=== PATIENT | male | born 1945 | race Caucasian/White ===

== ENCOUNTER 2020-11-28 03:24 | Inpatient (IN) | payer MEDICARE, SELFPAY ==
[2020-11-28] VITALS (12 sets, daily range): BP systolic 98–163; BP diastolic 53–107
[~2020-11-28] VITALS: Ht 170.2 cm; Wt 40.8 kg
[~2020-11-28 03:24] MED LIST: ACET-9536 PO; BACL10TA4 PO; BUPR100T3 PO; IBUP-2213 PO; LORA-476 PO; MELO7.5T11 PO; PAM25 PO; PAX20 PO; TRAM50TA3 PO; TRAZ-343 PO
--- NOTE | 2020-11-28 03:24 | NUR ---
PATIENT ARRIVED TO BED 2 VIA GURNEY.
[2020-11-28] MEDS ORDERED: MORPHINE SULFATE 4 MG/ML SYR IVP ONE ×3 (03:30→03:40)
[2020-11-28] MEDS ORDERED: ONDANSETRON 4 MG/2 ML VIAL IVP ONE (03:30)
--- NOTE | 2020-11-28 03:30 | NUR ---
75 YO/M BIBA W C/O CONSTANT GENERALIZED ABDOMNIAL PAIN 10/10 PRESSURE LIKE X3 HOURS THAT RADIATES TO BACK, SHOULDERS AND NECK. BOWEL SOUNDS PRESENT, ABDOMEN TENDER TO TOUCH, STOMACH RIGID AND FIRM. PATIENT DENIES ANY FEVER, N/V/D OR CONSTIPATION. PATIENT PRESENTS AOX4, GCS 15. ODIN AT 55HR, HYPOTENSIVE AT 90/48, 95% O2, 20RR. +2 PULSES, CAP REFILL <3SEC, +2PITTING EDEMA TO BILATERAL LOWER FEET. PATIENT LAYING IN BED W HOB ELEVATED, BED LOCKED IN LOWEST POSITION, CONNECTED TO MONITOR. ERMD AND CHARGE NURSE AT BEDSIDE FOR PATIENT ASSESSMENT AND CARE. WILL CONTINUE TO MONITOR. MEDHX: DIVERTICULITIS, HTN, HYPERLIPIDEMIA NKA
[2020-11-28] MEDS ORDERED: MORPHINE SULFATE 4 MG/ML SYR ONE ×2 (03:32→03:40)
[2020-11-28] MEDS ORDERED: ONDANSETRON 4 MG/2 ML VIAL ONE ×2 (03:32→12:19)
[2020-11-28] MEDS ORDERED: HYDROmorphone 1 MG/ML AMP ONE ×2 (03:54→12:19)
[2020-11-28] MEDS ORDERED: HYDROmorphone PFS 2 MG/ML SYR IVP ONE ×3 (03:55→04:55)
[2020-11-28] MEDS ORDERED: NACL 0.9% 1,000 ML IV ONE ×2 (03:55)
--- NOTE | 2020-11-28 03:56 | NUR ---
WASTED .5MG OF DILAUDID WITH ANJU SOSA. 1MG OF DILAUDID PULLED. .5MG DILAUDID ADMINISTERED.
--- NOTE | 2020-11-28 03:58 | NUR ---
PATIENT TAKEN TO CT VIA GURNEY.
[2020-11-28 04:20] LABS: BASOPHILS # (AUTO) 0.1 K/uL (0.00-0.22); BASOPHILS % (AUTO) 0.6 % (0.0-2.0); EOSINOPHILS # (AUTO) 0.1 K/uL (0-0.4); EOSINOPHILS % (AUTO) 0.7 % (0.0-4.0); HEMATOCRIT 40.4 % (36-52); HEMOGLOBIN 13.8 g/dL (12.0-18.0); LYMPHOCYTES # (AUTO) 1.2 K/uL (2.0-11.5); MEAN CORPUSCULAR HEMOGLOBIN 32 pg (27-31); MEAN CORPUSCULAR HGB CONC 34 g/dL (33-37); MEAN CORPUSCULAR VOLUME 94.9 fL (80-94); MONOCYTES # (AUTO) 0.7 K/uL (0.8-1.0); MONOCYTES % (AUTO) 6.7 % (1.7-9.3); NEUTROPHILS # (AUTO) 8.9 K/uL (1.8-7.7); PLATELET COUNT (AUTO) 288 K/uL (140-450); RED BLOOD CELL COUNT(AUTO) 4.26 MIL/uL (4.20-6.10); RED CELL DISTRIBUTION WIDTH 15.1 % (11.6-13.7)
--- NOTE | 2020-11-28 04:20 | NUR ---
PATIENT C/O OF ONGOING 10/10 ABDOMINAL PAIN. ERMD MADE AWARE, NEW PAIN MED ORDERS.
[2020-11-28 04:25] LABS: ALBUMIN 3.2 g/dL (3.4-5.0); ANION GAP 9.9 (8-16); ASPARTATE AMINOTRANSFERASE 23 U/L (15-37); CARBON DIOXIDE 29.6 mmol/L (21-32); CHLORIDE 105 mmol/L (98-107); CREATININE 1.1 mg/dL (0.6-1.3); GLUCOSE 171 mg/dL (74-106); LIPASE 298 U/L (73-393); POTASSIUM 4.5 mmol/L (3.5-5.1); SODIUM SERUM 140 mmol/L (136-145); TOTAL BILIRUBIN 0.2 mg/dL (0.0-1.0); UREA NITROGEN, BLOOD 32 mg/dL (7-18)
--- NOTE | 2020-11-28 04:25 | NUR ---
ADMINISTERED .5MG OF DILAUDID. 2MG OF DILAUDID PULLED. 1.5 MG DILAUDID WASTED W IAN RENE.
[2020-11-28 04:53] LABS: FREE T4 (FREE THYROXINE) 0.78 ng/dL (0.76-1.46); THYROID STIMULATING HORMONE 2.72 uIU/mL (0.34-3.74)
[2020-11-28 05:06] LABS: APPEARANCE,URINE HAZY (CLEAR); BILIRUBIN,URINE NEGATIVE (NEGATIVE); BLOOD, URINE TRACE-I (NEGATIVE); COLOR,URINE YELLOW (YELLOW); LEUKOCYTE ESTERASE ,URINE TRACE (NEGATIVE); NITRITE, URINE NEGATIVE (NEGATIVE); PH,URINE 8.5 (5.0-9.0); UGLUCOSE NEGATIVE (NEGATIVE)
[2020-11-28] MEDS ORDERED: PIPERACILLIN/TAZOBACTAM 4.5 GM VIAL IV ONE (05:08)
[2020-11-28] MEDS ORDERED: PIPERACILLIN/TAZOBACTAM 4.5 GM in DEXTROSE 5% 100 ML IV ONE (05:10)
--- NOTE | 2020-11-28 05:11 | NUR ---
WASTED 1MG OF DILAUDID WITH FLORENTIN RN. 2MG OF DILAUDID PULLED. 1MG DILAUDID ADMINISTERED.
[2020-11-28 05:18] LABS: WBC,URINE 0-5 /HPF (0-5)
[2020-11-28] MEDS ORDERED: HYDROmorphone PFS 2 MG/ML SYR IVP PRN (05:20)
[2020-11-28] MEDS ORDERED: MORPHINE SULFATE 4 MG/ML SYR IV PRN (05:20)
--- NOTE | 2020-11-28 05:20 | NUR ---
PATIENT DESATING TO 78% O2, PLACED ON 2L NC. PATIENT O2 SAT AT 88%, PLACED ON 3L NC AND PATIENT O2 SATURATION AT 97%. ERMD MADE AWARE, PER ERMD OK TO BE ON 3L NC.
[2020-11-28] MEDS ORDERED: QUET25TA PO (05:52)
[2020-11-28] MEDS ORDERED: GABA300C PO (05:52)
[2020-11-28] MEDS ORDERED: AMLO2.5T PO (05:52)
[2020-11-28] MEDS ORDERED: FAMO-90 PO (05:52)
[2020-11-28] MEDS ORDERED: ACET-2214 PO (05:52)
[2020-11-28] MEDS ORDERED: SERT100T PO (05:52)
[2020-11-28] MEDS ORDERED: ATOR20TA PO (05:52)
[2020-11-28] MEDS ORDERED: BACL10TA4 PO (05:52)
[2020-11-28] MEDS ORDERED: BUPR-51 PO (05:52)
--- NOTE | 2020-11-28 06:20 | NUR ---
PT POINT OF CONTACT: CHELY (SON) #[phone]
--- NOTE | 2020-11-28 06:26 | NUR ---
PATIENT LAYING IN BED IN R LATERAL POSITION W EYES CLOSED. HOB SLIGHTLY ELEVATED, X2 SIDERAILS UP FOR PATIENT SAFETY. PATIENT CONNECTED TO MONITOR W VSS. BREATHING EVEN AND UNLABORED, NAD NOTED. WILL CONTINUE TO MONITOR.
--- NOTE | 2020-11-28 07:03 | NUR ---
PATIENT HAS BEEN SCREENED AND CATEGORIZED HIGH NUTRITION RISK. PATIENT WILL BE SEEN WITHIN 1-2 DAYS OF ADMISSION. 11/29/20-11/30/20 MANNIE SMITH MS, RDN
--- NOTE | 2020-11-28 07:15 | NUR ---
REPORT RECEIVED FROM ANJU TURPIN. ALL CARES TRANSFERRED AT THIS TIME.
--- NOTE | 2020-11-28 07:25 | NUR ---
REPORT GIVEN TO SANDRA RENE FOR TRANSFER OF PATIENT CARE AT THIS TIME.
[2020-11-28] MEDS: NACL 0.9% 1,000 ML IV SCH ×3 (07:26→21:38)
--- NOTE | 2020-11-28 07:43 | NUR ---
PATIENT BROUGHT IN TO ICU VIA GURNEY BY ED NURSE. PATIENT AWAKE, ALERT, ABLE TO MAKE NEEDS KNOWN. BREATHING EVEN AND UNLABORED, NO SIGNS OF ACUTE DISTRESS NOTED ON 3L NC, SPO2 91%. L AC 20G INFUSING NS @ 120 ML/HR. PATIENT COMPLAINS OF ABD PAIN 09/24, MEDICATED AT THE ED, WILL MONITOR CLOSELY. PATIENT ORIENTED TO ROOM AND UNIT, CALL LIGHT WITHIN REACH. LIVESTOCK HAULIER IN PLACE. SAFETY MEASURES IN PLACE.
--- NOTE | 2020-11-28 07:53 | NUR ---
Patient will be admitted to care of DR MILLS. Admited to ICU. Will go to BED 4. Belongings list completed. Report to ANJU COPELAND.
--- NOTE | 2020-11-28 08:36 | NUR ---
PER DR TENORIO, PATIENT WILL BE UNDERGOING EMERGENCY SURGERY SOON THIS AM, RAPID COVID-19 TEST NOT A PRIORITY AT THIS TIME.
--- NOTE | 2020-11-28 09:15 | NUR ---
SAMPLE FOR RAPID COVID TEST OBTAINED AND WALKED TO LABORATORY AT THIS TIME. ECG TECHNICIAN PERFORMING TEST STAT.
[2020-11-28] MEDS ORDERED: POTASSIUM CHLORIDE 10 MEQ TABER PO PRN (10:30)
[2020-11-28] MEDS ORDERED: ZOLPIDEM 5 MG TAB PO PRN (10:30)
[2020-11-28] MEDS ORDERED: MAG SULF 2000 MG/WATER PREMIX 50 ML IV PRN (10:30)
[2020-11-28] MEDS ORDERED: ONDANSETRON 4 MG/2 ML VIAL IM/IVP PRN (10:30)
[2020-11-28] MEDS ORDERED: DOCUSATE SODIUM 100 MG GELCAP PO PRN (10:30)
--- NOTE | 2020-11-28 10:49 | NUR ---
PRN DILAUDID ADMINISTERED FOR ABD PAIN 12/25. MED EDUCATION PROVIDED, PATIENT VERBALIZES UNDERSTANDING.
[2020-11-28 11:17] LABS: BARBITURATE, URINE NEGATIVE ng/ml (NEG <=200); BENZODIAZEPINE, URINE NEGATIVE ng/mL (NEG <=200); CANNABINOID, URINE NEGATIVE ng/mL (NEG <=50); COCAINE, URINE NEGATIVE ng/mL (NEG <=300); OPIATE, URINE POSITIVE ng/mL (NEG <=2000); PHENCYCLIDINE SCREEN,URINE NEGATIVE ng/mL (NEG <=25)
--- NOTE | 2020-11-28 11:53 | NUR ---
PATIENT COMPLAINS OF NAUSEA, PRN ZOFRAN ADMINISTERED PER MD ORDER. MED EDUCATION PROVIDED, PATIENT VERBALIZES UNDERSTANDING. WILL MONITOR CLOSELY.
[2020-11-28] MEDS: PIPERACILLIN/TAZOBACTAM 4.5 GM in DEXTROSE 5% 100 ML IV SCH ×4 (12:01→23:36)
[2020-11-28] MEDS ORDERED: BUPIVACAINE-MPF/EPI 0.25% 30 ML VIAL INJ ONE (12:04)
[2020-11-28] MEDS ORDERED: PROPOFOL 200 MG/20 ML VIAL IV ONE ×2 (12:06→12:19)
[2020-11-28] MEDS ORDERED: SUCCINYLCHOLINE CHLORIDE 200 MG/10 ML VIAL IVP ONE ×2 (12:07→12:19)
[2020-11-28] MEDS ORDERED: fentaNYL citrate 0.05 MG/ML VIAL ONE ×2 (12:19→12:21)
[2020-11-28] MEDS ORDERED: DEXAMETHASONE 4 MG/ML VIAL ONE ×2 (12:19→12:44)
[2020-11-28] MEDS ORDERED: ROCURONIUM 50 MG/5 ML VIAL IV ONE ×2 (12:19→12:36)
[2020-11-28] MEDS ORDERED: SEVOFLURANE 250 ML BTL INH ONE (12:19)
[2020-11-28] MEDS ORDERED: SUGAMMADEX SODIUM 200 MG/2 ML VIAL IV ONE ×2 (12:19→13:16)
--- NOTE | 2020-11-28 12:21 | NUR ---
PATIENT PICKED UP BY OR TEAM AT THIS TIME FOR SURGERY. ALL VITALS STABLE AT THIS TIME.
[2020-11-28] MEDS ORDERED: HYDROmorphone PFS 2 MG/ML SYR ONE (13:16)
--- NOTE | 2020-11-28 14:35 | NUR ---
PATIENT RECEIVED FROM OR TEAM VIA [facility]. BREATHING LABORED 35RR, ON 10L SIMPLE MASK SPO2 93%. PATIENT AWAKE AND ALERT, WITH ABD DISCOMFORT, RECEIVED DILAUDID IN OR 1HR AGO PER OR TEAM. 1L LR BOLUS INFUSING AT THIS TIME, WIDE OPEN. PATIENT PLACED ON LOLLYPOP MACHINE OPERATOR, REORIENTED TO ROOM AND MADE AWARE OF FAMILY BEING UP TO DATE ON HIS CONDITION AND WILL BE COMING TO VISIT HIM SOON. PATIENT VERBALIZES UNDERSTANDING. SAFETY MEASURES IN PLACE, WILL MONITOR CLOSELY.
--- NOTE | 2020-11-28 14:47 | NUR ---
PATIENT FAMILY CALLED WITH UPDATES ON PATIENT CONDITION SP OR PROCEDURE. ALL QUESTIONS ANSWERED AT THIS TIME. PATIENT FAMILY ADVICED TO ALLOW PATIENT SOME REST BEFORE DRIVING IN TO SEE HIM, THEY AGREED AND WILL BE ON THEIR WAY SHORTLY. WILL CLOSELY MONITOR PATIENT CONDITION.
--- NOTE | 2020-11-28 14:52 | NUR ---
PATIENT RELAXED, SLEEPING, NO SIGNS OF ACUTE DISTRESS NOTED AT THIS TIME. WILL CONTINUE TO MONITOR.
--- NOTE | 2020-11-28 16:34 | NUR ---
PATIENT CONTINUES ON 10L SIMPLE MASK, SPO2 93%. PATIENT STATES FEELING MUCH BETTER, PAIN 0/10 AT THIS TIME. BREATHING EVEN BILATERALLY, NO SIGNS OF ACUTE DISTRESS NOTED. WILL CONTINUE TO MONITOR CLOSELY.
--- NOTE | 2020-11-28 16:51 | NUR ---
DR TENORIO AT BEDSIDE, FOLLOWING UP WITH PATIENT. 30 ML SEROSANGUINOUS FLUID REMOVED FROM DALE DRAIN. PATIENT ARRIVES AT BEDSIDE, UPDATED ON PATIENT CONDITION AND ALL QUESTIONS ANSWERED AT THIS TIME.
[2020-11-28] MEDS: QUEtiapine FUMARATE 25 MG TAB PO SCH (17:53)
[2020-11-28] MEDS: GABAPENTIN 300 MG CAP PO SCH (17:53)
[2020-11-28 17:58] LABS: PROTHROMBIN TIME 9.1 secs (10.8-13.4)
[2020-11-28 18:01] LABS: MAGNESIUM 2.4 mg/dL (1.8-2.4); PHOSPHORUS 3.9 mg/dL (2.5-4.9)
--- NOTE | 2020-11-28 19:27 | NUR ---
50 ML SEROSANGUINOUS FLUID REMOVED FROM DALE DRAIN.
--- NOTE | 2020-11-28 19:28 | NUR ---
ENDORSED TO QUALITY AUDIT REPRESENTATIVE NURSE FOR CONTINUITY OF CARE. PATIENT STABLE AT THIS TIME.
--- NOTE | 2020-11-28 19:30 | NUR ---
RECEIVED CARE AND REPORT FROM KURTISFT RN. PATIENT ALERT AND ORIENTED X 4 TO PERSON, PLACE, TIME AND EVENT. PATIENT TRACKING WITH EYES WHEN AT THE BEDSIDE, ABLE TO MAKE NEEDS KNOWN. PATIENT FOUND HOB 30 DEGREES, IN A POSITION OF COMFORT, WEARING A SIMPLE MASK O2 10 LPM, OXYGEN SATURATION 98%, RR 22, DENIES SOB AND DIFFICULTY BREATHING WHEN ASKED. PATIENT DENIES PAIN WHEN ASKED, RESTING COMFORTABLY, NO OBVIOUS SIGNS OF DISTRESS OBSERVED WHILE AT THE BEDSIDE. PATIENT CONNECTED TO CONTINUOUS MAINTENANCE SUPERVISOR 2ND SHIFT, NSR 91 HR. PATIENT HAS IV SITES OF LEFT AC 20G AND RIGHT AC 20G. IVF RUNNING INCLUDE NS 0.9% AT 120 ML/HR. IV SITE DRESSINGS DRY, INTACT AND FLUSHING WELL. PATIENT APPROXIMATE DRY WEIGHT IS 88 KG. PATIENT HAS ERAZO CATHETER IN PLACE, INTACT AND SECURED, DRAINING WELL. PATIENT HAS A RIGHT DALE DRAIN SECURED TO THE ABDOMEN, DRAINING WELL, WITH ABDOMINAL DRESSING, DRY, INTACT AND SECURED. PATIENT RESTING IN A POSITION OF COMFORT, OFFLOADED FROM PRESSURE POINTS WITH USE OF PILLOWS AND REPOSITIONING Q2. BED LOCKED AND LOWERED INTO A POSITION OF SAFETY, CALL LIGHT WITHIN REACH OF PATIENT, EDUCATED/ORIENTED ON ROOM, CREATING ENVIRONMENT WITH DECREASED STIMULI TO PROMOTE HEALING. WILL CONTINUE TO REASSESS OFTEN, CLOSELY MONITOR AND FREQUENTLY ROUND.
--- NOTE | 2020-11-28 20:25 | NUR ---
ORAL CARE, HYGIENE, SAFETY CHECKS PROVIDED, PATIENT RESTING IN A POSITION OF COMFORT, DENIES PAIN WHEN ASKED, NO OBVIOUS SIGNS OF DISTRESS OBSERVED WHILE AT THE BEDSIDE. WILL CONTINUE TO CLOSELY MONITOR AND FREQUENTLY ROUND.
--- NOTE | 2020-11-28 20:44 | NUR ---
FIO2 TITRATED - PT SLEEPING COMFORTABLY ON 10L SIMPLE MASK AND WAS TITRATED TO 8L PT TOLERATING WELL AT THIS TIME WILL CONTINUE TO TITRATE/MONITOR
--- NOTE | 2020-11-28 20:55 | NUR ---
FAMILY CALLED THE UNIT, ALL QUESTIONS ANSWERED.
[2020-11-28] MEDS: FAMOTIDINE 20 MG TAB PO SCH (21:23)
[2020-11-28] MEDS: SERTRALINE 50 MG TAB PO SCH (21:23)
[2020-11-28] MEDS: ATORVASTATIN 20 MG TAB PO SCH (21:23)
--- NOTE | 2020-11-28 21:35 | NUR ---
FIO2 TITRATION - SIMPLE MASK TITRATED TO 5L PT TOLERATING WELL f20 SPO2 98% HR 89 WILL CONTINUE TO TITRATE TOLERATED AND MONITOR
--- NOTE | 2020-11-28 21:37 | NUR ---
SCHEDULED MEDICATIONS GIVEN ORDERED BY THE MD, NO OBVIOUS SIGNS OF DISTRESS OBSERVED WHILE AT THE BEDSIDE. PATIENT DENIES PAIN WHEN ASKED, DENIES SOB AND DENIES ANY DIFFICULTY BREATHING, RESTING IN A POSITION OF COMFORT, WILL CONTINUE TO CLOSELY MONITOR AND FREQUENTLY ROUND.
--- NOTE | 2020-11-28 22:02 | NUR ---
ORAL CARE, HYGIENE, REPOSITIONING AND SAFETY CHECKS PROVIDED. PATIENT STATES FEELING GOOD WHEN ASKED, NO OBVIOUS SIGNS OF DISTRESS OBSERVED WHILE AT THE BEDSIDE. WILL CONTINUE TO CLOSELY MONITOR AND FREQUENTLY ROUND.
[2020-11-29] VITALS (22 sets, daily range): BP systolic 102–144; BP diastolic 50–93
--- NOTE | 2020-11-29 00:07 | NUR ---
RIGHT DALE DRAIN EMPTIED, 20 ML OUT.
[2020-11-29] MEDS: HYDROcodone/APAP 5/325 MG 1 TAB TAB PO PRN ×3 (00:23→19:48)
--- NOTE | 2020-11-29 00:23 | NUR ---
PRN PAIN MEDICATION GIVEN ORDERED BY MD, WILL CONTINUE TO CLOSELY MONITOR AND FREQUENTLY ROUND.
--- NOTE | 2020-11-29 01:22 | NUR ---
PATIENT SLEEPING IN A POSITION OF COMFORT, HOB 30 DEGREES TOLERATING THERAPIES WELL, AIRWAY OPEN CLEAR AND MAINTAINABLE. NO OBVIOUS SIGNS OF DISTRESS OBSERVED WHILE AT THE BEDSIDE. WILL CONTINUE TO CLOSELY MONITOR AND FREQUENTLY ROUND.
[2020-11-29] MEDS: MORPHINE SULFATE 2 MG/ML SYR IVP PRN (02:17)
--- NOTE | 2020-11-29 02:17 | NUR ---
PRN PAIN MEDICATION GIVEN ORDERED BY MD, NO OBVIOUS SIGNS OF DISTRESS OBSERVED WHILE AT THE BEDSIDE. WILL CONTINUE TO CLOSELY MONITOR AND FREQUENTLY ROUND.
--- NOTE | 2020-11-29 04:01 | NUR ---
DALE DRAIN EMPTIED, 25 ML OUT.
--- NOTE | 2020-11-29 04:21 | NUR ---
MORNING CARE, ORAL CARE, HYGIENE, SAFETY CHECKS AND ADL ASSISTANCE PROVIDED. NO OBVIOUS SIGNS OF DISTRESS OBSERVED WHILE AT THE BEDSIDE. WILL CONTINUE TO CLOSELY MONITOR AND FREQUENTLY ROUND.
[2020-11-29 05:14] LABS: BASOPHILS % (AUTO) 0.2 % (0.0-2.0); EOSINOPHILS % (AUTO) 0.1 % (0.0-4.0); HEMATOCRIT 41.4 % (36-52); HEMOGLOBIN 13.7 g/dL (12.0-18.0); LYMPHOCYTES # (AUTO) 0.4 K/uL (2.0-11.5); MEAN CORPUSCULAR HEMOGLOBIN 32 pg (27-31); MEAN CORPUSCULAR HGB CONC 33 g/dL (33-37); MEAN CORPUSCULAR VOLUME 97.5 fL (80-94); MONOCYTES # (AUTO) 0.5 K/uL (0.8-1.0); MONOCYTES % (AUTO) 4.4 % (1.7-9.3); NEUTROPHILS # (AUTO) 10.7 K/uL (1.8-7.7); PLATELET COUNT (AUTO) 219 K/uL (140-450); RED BLOOD CELL COUNT(AUTO) 4.25 MIL/uL (4.20-6.10); RED CELL DISTRIBUTION WIDTH 15.9 % (11.6-13.7); WHITE BLOOD COUNT (AUTO) 11.6 K/uL (4.8-10.8)
[2020-11-29] MEDS: HYDROmorphone 1 MG/ML AMP IVP PRN ×3 (05:48→17:45)
--- NOTE | 2020-11-29 05:48 | NUR ---
PRN PAIN MEDICATION GIVEN ORDERED BY MD, NO OBVIOUS SIGNS OF DISTRESS OBSERVED WHILE AT THE BEDSIDE. WILL CONTINUE TO CLOSELY MONITOR AND FREQUENTLY ROUND.
[2020-11-29 05:55] LABS: ANION GAP 10.4 (8-16); CARBON DIOXIDE 26.5 mmol/L (21-32); CHLORIDE 109 mmol/L (98-107); CREATININE 0.8 mg/dL (0.6-1.3); GLUCOSE 112 mg/dL (74-106); POTASSIUM 4.9 mmol/L (3.5-5.1); SODIUM SERUM 141 mmol/L (136-145); UREA NITROGEN, BLOOD 34 mg/dL (7-18)
[2020-11-29] MEDS: PIPERACILLIN/TAZOBACTAM 4.5 GM in DEXTROSE 5% 100 ML IV SCH ×4 (05:56→23:00)
[2020-11-29] MEDS: NACL 0.9% 1,000 ML IV SCH ×3 (05:58→22:31)
[2020-11-29 06:03] LABS: CHOL/HDL RATIO 1.8 (1-4.5); MAGNESIUM 2.5 mg/dL (1.8-2.4); PHOSPHORUS 4.3 mg/dL (2.5-4.9)
--- NOTE | 2020-11-29 06:18 | NUR ---
PATIENT ASLEEP, RESTING IN A POSITION OF COMFORT, TOLERATING THERAPIES WELL, NO OBVIOUS SIGNS OF DISTRESS OBSERVED WHILE AT THE BEDSIDE. SYMMETRICAL CHEST RISE AND FALL OBSERVED, HOB 30 DEGREES, AIRWAY PATENT, RR 20, OXYGEN SATURATION 97%, SIMPLE MASK 5 LPM. VS STABLE. WILL CONTINUE TO CLOSELY MONITOR AND FREQUENTLY ROUND.
[2020-11-29 06:28] LABS: LYMPHOCYTES % (AUTO) 3.2 % (20.5-51.1); NEUTROPHILS % (AUTO) 92.1 % (42.2-75.2)
--- NOTE | 2020-11-29 07:17 | NUR ---
REPORT AND CARE ENDORSED TO DAYSHIFT RN, VS STABLE.
--- NOTE | 2020-11-29 07:22 | NUR ---
RECIEVED REPORT FROM NIGHTSHIFT NURSE. PT RESTING IN BED. ABLE TO MAKE NEEDS KNOWN. RESPIRATIONS EVEN AND UNLABORED WITH NO SOB OR RESPIRATORY DISTRESS.SKIN WARM AND DRY TO TOUCH. PT HAS NGTUBE IN R NARE. PT HAS ERAZO DRAINING VIA GRAVITY. PT HAS DALE DRAIN CLEAN,DRY, AND INTACT. SAFETY MEASURES IN PLACE. WILL CONTINUE TO MONITOR
[2020-11-29] MEDS: PANTOPRAZOLE 40 MG INJ VIAL IVP SCH (08:32)
[2020-11-29] MEDS: GABAPENTIN 300 MG CAP PO SCH ×3 (08:35→17:06)
[2020-11-29] MEDS: amLODIPine 5 MG TAB PO SCH (08:36)
[2020-11-29] MEDS: QUEtiapine FUMARATE 25 MG TAB PO SCH ×3 (08:36→17:06)
[2020-11-29] MEDS: SERTRALINE 50 MG TAB PO SCH ×2 (08:37→20:48)
[2020-11-29] MEDS: FAMOTIDINE 20 MG TAB PO SCH ×2 (08:38→20:46)
[2020-11-29] MEDS: buPROPion 100 MG TAB PO SCH (08:38)
--- NOTE | 2020-11-29 08:52 | NUR ---
ADMINISTERED SCHED MED PRESCRIBED PER MD ORDER. PT TOLERATED WELL. MEDICATION EDUCATION PERFORMED. PT VERBALIZED UNDERSTANDING. SAFETY MEASURES IN PLACE. WILL CONTINUE TO MONITOR
--- NOTE | 2020-11-29 09:30 | NUR ---
PT RESTING IN BED. ABLE TO MAKE NEEDS KNOWN. RESPIRATIONS EVEN AND UNLABORED WITH NO SOB OR RESPIRATORY DISTRESS. SAFETY MEASURES IN PLACE. WILL CONTINUE TO MONITOR
--- NOTE | 2020-11-29 11:58 | NUR ---
ADMINISTERED SCHED MED PRESCRIBED PER MD ORDER. PT TOLERATED WELL. MEDICATION EDUCATION PERFORMED. PT VERBALIZED UNDERSTANDING. SAFETY MEASURES IN PLACE. WILL CONTINUE TO MONITOR
--- NOTE | 2020-11-29 12:20 | NUR ---
PT HAVING EPISODE OF EMESIS INTO EMESIS BAG. PT STATES HE FEELS NAUSEAS. PRN ZOFRAN ADMINISTERED PRESCRIBED PER MD ORDER. PT ALSO COMPLAINED OF SEVERE STOMACH PAIN. PRN DILAUDID ADMINISTERED PRESCRIBED PER MD ORDER. PT TOLERATED WELL. MEDICATION EDUCATION PERFORMED. PT TOLERATED WELL. SAFETY MEASURES IN PLACE. WILL CONTINUE TO MONITOR
[2020-11-29] MEDS: ONDANSETRON 4 MG/2 ML VIAL IV PRN (12:21)
--- NOTE | 2020-11-29 13:12 | NUR ---
DR. TENORIO AT BEDSIDE ASSESSING PATIENT
--- NOTE | 2020-11-29 13:27 | NUR ---
GRANDDAUGHTER MARY CALLED AND WANTED AN UPDATE. UPDATE GIVEN. SAFETY MEASURES IN PLACE. WILL CONTINUE TO MONITOR
--- NOTE | 2020-11-29 14:15 | NUR ---
VISITOR AT BEDSIDE VISITING PATIENT.SAFETY MEASURES IN PLACE. WILL CONTINUE TO MONITOR
--- NOTE | 2020-11-29 15:43 | NUR ---
DR. SWARTZ ASSESSING PATIENT
--- NOTE | 2020-11-29 17:11 | NUR ---
ADMINISTERED SCHED MED PRESCRIBED PER MD ORDER. MEDICATION EDUCATION PERFORMED. PT VERBALIZED UNDERSTANDING. SAFETY MEASURES IN PLACE. WILL CONTINUE TO MONITOR
--- NOTE | 2020-11-29 17:45 | NUR ---
PT COMPLAINED OF SEVERE PAIN. PRN DILAUDID ADMINISTERED PRESCRIBED PER MD ORDER. PT TOLERATED WELL. MEDICATION EDUCATION PERFORMED. PT VERBALIZED UNDERSTANDING. SAFETY MEASURES IN PLACE. WILL CONTINUE TO MONITOR
--- NOTE | 2020-11-29 18:30 | NUR ---
REMOVED ERAZO PER MD ORDER. PT TOLERATED WELL. PT EDUCATED ON URINAL USE. PT VERBALIZED UNDERSTANDING. SAFETY MEASURES IN PLACE. WILL CONTINUE TO MONITOR
--- NOTE | 2020-11-29 19:10 | NUR ---
ENDORSED TO NIGHTSHIFT NURSE FOR CONTINUITY OF CARE
--- NOTE | 2020-11-29 19:30 | NUR ---
RECEIVED CARE AND REPORT FROM DAYSHIFT RN. PATIENT ALERT AND ORIENTED X 4 TO PERSON, PLACE, TIME AND EVENT. PATIENT TRACKING WITH EYES WHEN AT THE BEDSIDE, ABLE TO MAKE NEEDS KNOWN. PATIENT FOUND HOB 30 DEGREES, IN A POSITION OF COMFORT, HAS HUMIDIFIED NC 4 LPM, OXYGEN SATURATION 96%, RR 18, DENIES SOB AND DIFFICULTY BREATHING WHEN ASKED. PATIENT DENIES PAIN WHEN ASKED, RESTING COMFORTABLY, NO OBVIOUS SIGNS OF DISTRESS OBSERVED WHILE AT THE BEDSIDE. PATIENT CONNECTED TO CONTINUOUS RIDING TEACHER. PATIENT HAS IV SITES OF LEFT AC 20G AND RIGHT AC 20G. IVF RUNNING INCLUDE NS 0.9% AT 120 ML/HR. IV SITE DRESSINGS DRY, INTACT AND FLUSHING WELL. PATIENT APPROXIMATE DRY WEIGHT IS 88 KG. PATIENT HAS ERAZO CATHETER IN PLACE, INTACT AND SECURED, DRAINING WELL. PATIENT HAS A RIGHT DALE DRAIN SECURED TO THE ABDOMEN, DRAINING WELL, WITH ABDOMINAL DRESSING, DRY, INTACT AND SECURED. PATIENT RESTING IN A POSITION OF COMFORT, OFFLOADED FROM PRESSURE POINTS WITH USE OF PILLOWS AND REPOSITIONING Q2. BED LOCKED AND LOWERED INTO A POSITION OF SAFETY, CALL LIGHT WITHIN REACH OF PATIENT, EDUCATED/ORIENTED ON ROOM, CREATING ENVIRONMENT WITH DECREASED STIMULI TO PROMOTE HEALING. WILL CONTINUE TO REASSESS OFTEN, CLOSELY MONITOR AND FREQUENTLY ROUND.
--- NOTE | 2020-11-29 19:48 | NUR ---
PRN PAIN MEDICATION GIVEN ORDERED, WILL CONTINUE TO CLOSELY MONITOR AND FREQUENTLY ROUND.
--- NOTE | 2020-11-29 19:55 | NUR ---
RT CALLED TO BEDSIDE FOR DESATURATION TO 88%, RT AND RN AT BEDSIDE.
--- NOTE | 2020-11-29 20:01 | NUR ---
RT PLACED PATIENT ON HIGH FLOW NON REBREATHER MASK 15 LPM, RR 18, OXYGEN SATURATION 96%, TOLERATING THERAPY WELL. NO OBVIOUS SIGNS OF DISTRESS OBSERVED. WILL CONTINUE TO CLOSELY MONITOR AND FREQUENTLY ROUND.
--- NOTE | 2020-11-29 20:02 | NUR ---
DR. MCMULLEN PAGED/CALLED REGARDING INCREASED HR, AWAITING CALLBACK.
--- NOTE | 2020-11-29 20:25 | NUR ---
DR. MCMULLEN CALLED UNIT BACK, [id number] AND STATUS REPORT GIVEN TO MD, RECEIVED VERBAL TELEPHONE ORDER OF GIVE ONE TIME DIGOXIN 0.250 MG IVP NOW AND THEN GIVE ANOTHER ONE TIME DIGOXIN 0.125 MG IVP IN Q6 HOURS. WILL CARRY OUT ORDERS.
[2020-11-29] MEDS ORDERED: DIGOXIN 0.25 MG/ML AMP IV ONE (20:30)
[2020-11-29] MEDS: ATORVASTATIN 20 MG TAB PO SCH (20:45)
[2020-11-29] MEDS ORDERED: LEVALBUTEROL 0.63 MG/3 ML NEBU INH PRN (21:40)
--- NOTE | 2020-11-29 21:50 | NUR ---
DR. MILLS CALLED/PAGED REGARDING UPDATE IN PATIENT STATUS AND FOR FURTHER ORDERS, AWAITING CALLBACK.
--- NOTE | 2020-11-29 21:51 | NUR ---
DR. MILLS RECONTACTED UNIT, UPDATE ON PATIENT CONDITION, STATUS UPDATE GIVEN TO MD, UPDATED ON OTHER MD PHONE CONSULTS/ORDERS GIVEN THUS FAR, DR. MILLS ACKNOWLEDGED AND GAVE VERBAL TELEPHONE ORDER TO BOLUS 1L NS 0.9% WIDE OPEN AND TO FOLLOW UP WITH CARDIO DR. TEN WARREN MD STATED WILL ALSO CONTACT CARDIO. WILL CARRY OUT ORDERS.
[2020-11-29] MEDS ORDERED: NACL 0.9% 1,000 ML IV ONE (21:55)
--- NOTE | 2020-11-29 22:10 | NUR ---
CARDIO DR. TEN WARREN CONTACTED ORDERED BY DR. GENE MD GIVEN COMPLETE REPORT ON PATIENT CONDITION, STATUS, UPDATED ON OTHER MD PHONE CONSULTS/ORDERS GIVEN THUS FAR, DR. WARREN ACKNOWLEDGED AND GAVE VERBAL TELEPHONE ORDER TO BEGIN AMIODARONE DRIP PER PROTOCOL. MD STATED HE WILL SEE THE PATIENT AT BEDSIDE IN THE MORNING.
[2020-11-29] MEDS ORDERED: AMIODARONE 150 MG in DEXTROSE 5% 100 ML IV SCH (22:20)
[2020-11-29] MEDS ORDERED: AMIODARONE 450 MG/9 ML VIAL IV ONE (22:33)
[2020-11-29] MEDS ORDERED: AMIODARONE 150 MG/3 ML VIAL IV ONE (22:33)
[2020-11-29] MEDS: AMIODARONE 450 MG in DEXTROSE 5% 250 ML IV SCH (22:59)
[2020-11-30] VITALS (22 sets, daily range): BP systolic 115–154; BP diastolic 50–92
[2020-11-30] MEDS: HYDROmorphone 1 MG/ML AMP IVP PRN ×6 (00:03→23:54)
--- NOTE | 2020-11-30 00:03 | NUR ---
PRN PAIN MEDICATION GIVEN ORDERED, WILL CONTINUE TO CLOSELY MONITOR AND FREQUENTLY ROUND.
--- NOTE | 2020-11-30 00:39 | NUR ---
DALE DRAIN EMPTIED, 10 ML OUT.
[2020-11-30] MEDS ORDERED: DIGOXIN 0.25 MG/ML AMP IV SCH (02:30)
--- NOTE | 2020-11-30 02:41 | NUR ---
SECOND DIGOXIN IVP HELD PER PARAMETERS, PATIENT CONVERTED TO NSR AT 0110, SEE CHART.
--- NOTE | 2020-11-30 04:02 | NUR ---
DALE DRAIN EMPTIED, 35 ML OUT.
[2020-11-30] MEDS: ONDANSETRON 4 MG/2 ML VIAL IV PRN ×2 (04:14→08:53)
--- NOTE | 2020-11-30 04:35 | NUR ---
MORNING CARE, ORAL CARE, GOWN CHANGE, LINEN CHANGE, TEE CARE, SPONGE BATH, REPOSITIONING, HYGIENE AND SAFETY CHECKS PROVIDED. PATIENT RESTING IN A POSITION OF COMFORT, HOB 30 DEGREES, AIRWAY OPEN, CLEAR AND MAINTAINABLE, PATENT. NO OBVIOUS SIGNS OF DISTRESS OBSERVED WHILE AT THE BEDSIDE. WILL CONTINUE TO CLOSELY MONITOR AND FREQUENTLY ROUND.
[2020-11-30] MEDS: PIPERACILLIN/TAZOBACTAM 4.5 GM in DEXTROSE 5% 100 ML IV SCH ×3 (05:18→18:00)
--- NOTE | 2020-11-30 05:26 | NUR ---
PATIENT ASLEEP, RESTING IN A POSITION OF COMFORT, HOB 30 DEGREES, NO OBVIOUS SIGNS OF DISTRESS OBSERVED. SYMMETRICAL CHEST RISE AND FALL OBSERVED. PATIENT REMAINS ON HIGH FLOW NONREBREATHER 15 LPM, RR 15, OXYGEN SATURATION 98%. WILL CONTINUE TO CLOSELY MONITOR AND FREQUENTLY ROUND.
[2020-11-30 06:06] LABS: BASOPHILS # (AUTO) 0.1 K/uL (0.00-0.22); BASOPHILS % (AUTO) 0.4 % (0.0-2.0); EOSINOPHILS % (AUTO) 0.1 % (0.0-4.0); HEMATOCRIT 38.1 % (36-52); HEMOGLOBIN 12.6 g/dL (12.0-18.0); LYMPHOCYTES # (AUTO) 0.3 K/uL (2.0-11.5); LYMPHOCYTES % (AUTO) 1.9 % (20.5-51.1); MEAN CORPUSCULAR HEMOGLOBIN 32 pg (27-31); MEAN CORPUSCULAR HGB CONC 33 g/dL (33-37); MEAN CORPUSCULAR VOLUME 96.8 fL (80-94); MONOCYTES # (AUTO) 0.5 K/uL (0.8-1.0); MONOCYTES % (AUTO) 3.6 % (1.7-9.3); NEUTROPHILS # (AUTO) 12.2 K/uL (1.8-7.7); PLATELET COUNT (AUTO) 211 K/uL (140-450); RED BLOOD CELL COUNT(AUTO) 3.94 MIL/uL (4.20-6.10); RED CELL DISTRIBUTION WIDTH 15.3 % (11.6-13.7)
[2020-11-30] MEDS ORDERED: AMIODARONE 450 MG/9 ML VIAL IV ONE (06:06)
[2020-11-30] MEDS: NACL 0.9% 1,000 ML IV SCH ×2 (06:24→16:10)
[2020-11-30 06:51] LABS: MAGNESIUM 2.2 mg/dL (1.8-2.4)
[2020-11-30 07:00] LABS: ANION GAP 10.4 (8-16); CHLORIDE 109 mmol/L (98-107); CREATININE 0.9 mg/dL (0.6-1.3); GLUCOSE 108 mg/dL (74-106); POTASSIUM 4.4 mmol/L (3.5-5.1); SODIUM SERUM 140 mmol/L (136-145); UREA NITROGEN, BLOOD 38 mg/dL (7-18)
--- NOTE | 2020-11-30 07:29 | NUR ---
REPORT AND CARE ENDORSED TO DAYSHIFT RN, VS STABLE.
--- NOTE | 2020-11-30 07:30 | NUR ---
RECEIVED PATIENT IN BED WITH HOB ELEVATED. AOX4, WITH EPISODES OF CONFUSION, ABLE TO MAKE NEEDS KNOWN, NO C/O PAIN, NO SOB, ON 15L NRM , O2SAT 96%, RT AT BEDSIDE. SR ON MONITOR AT 80s. WITH LAC 20G AND RH 22G RUNNING AMIO DRIP, IVF NS 120 ML/HR. SKIN NOT INTACT, WITH ABD SURGICAL INCISION. NGT ON RIGHT NARES INTACT CONNECTED TO HIGH INTERMITTENT SUCTION ORDERED. CALL LIGHT WITHIN REACH. WILL CONTINUE TO MONITOR.
--- NOTE | 2020-11-30 08:50 | NUR ---
WITH EPISODE OF MOANING AND GROANING. DILAUDID GIVEN FOR PAIN
[2020-11-30] MEDS: PANTOPRAZOLE 40 MG INJ VIAL IVP SCH (08:52)
[2020-11-30] MEDS: amLODIPine 5 MG TAB PO SCH (08:52)
[2020-11-30] MEDS: GABAPENTIN 300 MG CAP PO SCH ×3 (08:52→17:03)
[2020-11-30] MEDS: buPROPion 100 MG TAB PO SCH (08:52)
[2020-11-30] MEDS: FAMOTIDINE 20 MG TAB PO SCH ×2 (08:52→22:45)
[2020-11-30] MEDS: QUEtiapine FUMARATE 25 MG TAB PO SCH ×3 (08:52→17:03)
[2020-11-30] MEDS: SERTRALINE 50 MG TAB PO SCH ×2 (08:52→22:46)
[2020-11-30] MEDS: AMIODARONE 450 MG in DEXTROSE 5% 250 ML IV SCH (08:53)
--- NOTE | 2020-11-30 08:58 | NUR ---
PATIENT HAS BEEN SCREENED AND CATEGORIZED HIGH NUTRITION RISK. PATIENT WILL BE SEEN WITHIN 1-2 DAYS OF ADMISSION. 11/30/[address]
--- NOTE | 2020-11-30 09:00 | NUR ---
DUE MORNING MEDS GIVEN VIA NGT.TOLERATED WELL.
--- NOTE | 2020-11-30 10:00 | NUR ---
SEEN BY WOUND CARE NURSEEnoch MONTGOMERY APPLIED TO JOHNNA CABRERA Addendum: 11/30/20 at 1248 by Ace Márquez RN DISREGARD ABOVE NOTE. WRONG PT
--- NOTE | 2020-11-30 10:05 | NUR ---
WOUND CARE EVALUATION NOTE: WOUND ASSESSMENT DONE WITH PRIMARY RN ON THIS 75-YEAR-OLD MALE WITH HYPERTENSION AND A HISTORY OF SIGMOID DIVERTICULITIS, HX OF COLECTOMY AND WITH REVERSAL OF COLOSTOMY. PATIENT IS POSTOP EXPLORATORY LAPAROTOMY WITH LYSIS OF ADHESIONS AND PLACEMENT OF DALE DRAIN. PT. IS ALERT BUT CONFUSED TO TIME AND PLACE. PT. VERBALIZES NEEDS POC DISCUSSED WITH PT AND PRIMARY RN, PT. NEED REINFORCE TEACHING FOR WOUND CARE. -MID ABDOMINAL SURGICAL WOUND WITH RODERICK IN PLACE ,SECURE, NO S/S OF WOUND DEHISCENCE. WOUND MOIST, SEEPING OUT SMALL AMOUNT SEROUS DRAINAGE, NO ODOR, TEE WOUND SKIN WITH ECCHYMOSIS. -RLQ ABDOMEN DALE DRAIN IN PLACE SECURED WITH SUTURES AND DRAIN WITH MODERATE AMOUNT SEROSANGUINEOUS. ABDOMINAL WALL DISTENTION WITH DRY, PEELING SKIN, PENIS AND SCROTAL +1 EDEMA SKIN THIN AND INTACT. RECOMMENDATIONS: -CLEANSE MID ABDOMINAL SURGICAL SITE WITH NS, PAT DRY, APPLY DRY DRESSING QD AND PRN IF SOILING -APPLY HYDRAGUARD TO ABDOMINAL, PENIS, AND SCROTAL AREA BID AND CHANCE
--- NOTE | 2020-11-30 10:30 | NUR ---
SEEN BY WOUND CARE NURSE. DRESSING CHANGED ON ABD SURGICAL WOUND
--- NOTE | 2020-11-30 12:00 | NUR ---
[facility] CALLED FOR PT CONDITION UPDATE
--- NOTE | 2020-11-30 12:30 | NUR ---
DESATURATING ON 15L NC, CHANGED BACK TO 15L NRM. EFFECTIVE BUT FEELS UNCOMFORTABLE PER PT. RT NOTIFIED, WILL CHANGE TO HIGH FLOW O2
[2020-11-30] MEDS: LEVALBUTEROL 1.25 MG/0.5 ML NEBU INH PRN ×2 (12:49→23:51)
[2020-11-30] MEDS: GAUZE TP SCH (12:58)
[2020-11-30] MEDS: HYDRAGUARD CREAM TP SCH (12:58)
--- NOTE | 2020-11-30 14:50 | NUR ---
PT ASLEEP IN BED, FLACC 0, NO RESPIRATORY DISTRESS ON 30L HIGH FLOW NC
--- NOTE | 2020-11-30 16:25 | NUR ---
11/30/20 RD INITIAL ASSESSMENT COMPLETED PLEASE REFER TO NUTRITION ASSESSMENT UNDER CARE ACTIVITY FOR ESTIMATED NUTRITIONAL NEEDS. 1. CONTINUE NPO MEDICALLY APPROPRIATE 2. IF/WHEN PATIENT IS MEDICALLY STABLE CONSIDER ADVANCING TO CLEAR LIQUID DIET AND GRADUALLY TO CARDIAC DIET 3. IF PATIENT WILL BE NPO >7 DAYS CONSIDER TPN 4. RD TO FOLLOW-UP 2-3 DAYS, HIGH RISK JAN KINCAID, JUAN
[2020-11-30] MEDS: ACETAMINOPHEN 325 MG TAB PO PRN (17:04)
[2020-11-30] MEDS ORDERED: FUROSEMIDE 40 MG/4 ML VIAL IVP SCH (17:10)
--- NOTE | 2020-11-30 17:15 | NUR ---
WITH EPISODES OF WHEEZING AND SOB. DR ATKINSON NOTIFIED, ORDERED TO STOP IVF AND GIVE LASIX 40MG IVP ONCE
--- NOTE | 2020-11-30 18:43 | NUR ---
PT RESTING IN BED, FLACC 0, STILL WITH WHEEZING UPON AUSCULTATION, O2SAT 90% ON HIGH FLOW 30L
--- NOTE | 2020-11-30 21:00 | NUR ---
PATIENT WAS ACCEPTED AND ASSESS DONE PATIENT CONFUSED DID NOT UNDERSTOOD WHAT WAS SAID TRIED TO GET OUT BED REMOVING CLOTHING RIGHT HAND IV HAD CAME OUT WILL USED THE LEFT A/C ON AMIODARONR DRIP TO D/C AT 2300 PATENT STABLE ABDOMEN DRSG DRY AND INTACT RIGHT DALE FEW SUTURES INTACT , ERAZO WAS D/C PATIENT INCONTINENT OF URINE NO BM WAS NOTICE ABDOMEN LITTER DISTENDED NO BOWL SOUND LASIX WAS GIVEN ON THE DAY , CHEST VERY RHONCHI THRU OUT LOOSE NON-PRODUCTIVE COUGH WILL CLEAR SAT 94-96 AND STABLE
[2020-11-30] MEDS: ATORVASTATIN 20 MG TAB PO SCH (22:44)
[2020-11-30] MEDS: METOPROLOL 50 MG TAB PO SCH (22:44)
--- NOTE | 2020-11-30 23:54 | NUR ---
PATIENT REMAIN AGITATE DILAUDID 1MG AND AMBIEN 5 MG PO WAS GIVEN FOR SLEEP AND PAIN HAD VERY GOOD RESPOND SLEPT WELL FOR 4 HOURS, STABLE, AWAKE BECAME MORE CONFUSED YELLING MOANING, HAD PULL OUT THE NGT WILL PLACE LATER, NO CHANGE WITH THE PATIENT CONDITION , PATIENT HAS NO DRIP POSIBLE MAY TRANSFERED TO FLOOR WHICH WILL BECAME BETTER STABLE
[2020-12-01] VITALS (21 sets, daily range): BP systolic 85–191; BP diastolic 49–99
[2020-12-01] MEDS: PIPERACILLIN/TAZOBACTAM 4.5 GM in DEXTROSE 5% 100 ML IV SCH ×5 (00:54→23:05)
[2020-12-01] MEDS: HYDRAGUARD CREAM TP SCH ×3 (00:55→23:48)
--- NOTE | 2020-12-01 05:30 | NUR ---
PATIENT NGT PLACE AND CHECK WILL CONTINUED WITH PLAN OF CARE CONFUSED UNCOOPERATIVE MAY NEED AN SITTER, STABLE
[2020-12-01 06:36] LABS: BASOPHILS % (AUTO) 0.3 % (0.0-2.0); EOSINOPHILS % (AUTO) 0.1 % (0.0-4.0); HEMATOCRIT 35.2 % (36-52); HEMOGLOBIN 11.6 g/dL (12.0-18.0); LYMPHOCYTES # (AUTO) 0.2 K/uL (2.0-11.5); LYMPHOCYTES % (AUTO) 1.7 % (20.5-51.1); MEAN CORPUSCULAR HEMOGLOBIN 32 pg (27-31); MEAN CORPUSCULAR HGB CONC 33 g/dL (33-37); MEAN CORPUSCULAR VOLUME 97.8 fL (80-94); MONOCYTES # (AUTO) 0.6 K/uL (0.8-1.0); MONOCYTES % (AUTO) 4.4 % (1.7-9.3); NEUTROPHILS # (AUTO) 13.6 K/uL (1.8-7.7); NEUTROPHILS % (AUTO) 93.5 % (42.2-75.2); PLATELET COUNT (AUTO) 202 K/uL (140-450); RED CELL DISTRIBUTION WIDTH 15.5 % (11.6-13.7); WHITE BLOOD COUNT (AUTO) 14.5 K/uL (4.8-10.8)
[2020-12-01 06:47] LABS: ANION GAP 11.1 (8-16); CARBON DIOXIDE 27.1 mmol/L (21-32); CHLORIDE 108 mmol/L (98-107); GLUCOSE 89 mg/dL (74-106); POTASSIUM 5.2 mmol/L (3.5-5.1); SODIUM SERUM 141 mmol/L (136-145); UREA NITROGEN, BLOOD 43 mg/dL (7-18)
[2020-12-01 06:52] LABS: MAGNESIUM 2.2 mg/dL (1.8-2.4); PHOSPHORUS 4.4 mg/dL (2.5-4.9)
--- NOTE | 2020-12-01 07:45 | NUR ---
RECEIVED BEDSIDE REPORT FROM POLE PEELER NURSE, PATIENT SUPINE IN BED. AGITATED, RESTLESS, NOT FOLLOWING COMMANDS. HI VINCE NC @ 35 LPM, SATURATING 88% SPO2. NG TUBE IN PLACE TO L NARE TO INTERMITTENT SUCTION. LAC 20G NOT FLUSHING, NEW R WRIST 20G IV PLACED, NS INFUSING @ 5 ML/HR. ABD DALE DRAIN IN PLACE, 7.5 ML SEROSANGUINEOUS FLUID REMOVED, DRESSING DRY AND INTACT. ELECTRONIC SECURITY TECHNICIAN IN PLACE, SAFETY MEASURES IN PLACE.
[2020-12-01] MEDS: LORazepam 2 MG/ML VIAL IM/IVP PRN (07:47)
--- NOTE | 2020-12-01 07:47 | NUR ---
PATIENT FOUND AGITATE, BP 180/PP, HR 101, RR 21, SPO2 90%, RESTLESS. PRN ATIVAN ADMINISTERED PER MD ORDER. MED EDUCATION PROVED, REINFORCEMENT NEEDED.
[2020-12-01] MEDS: LEVALBUTEROL 1.25 MG/0.5 ML NEBU INH PRN ×2 (07:52→12:21)
[2020-12-01] MEDS: PANTOPRAZOLE 40 MG INJ VIAL IVP SCH (08:54)
[2020-12-01] MEDS: METOPROLOL 50 MG TAB PO SCH ×3 (08:54→21:04)
[2020-12-01] MEDS: FAMOTIDINE 20 MG TAB PO SCH ×2 (08:55→21:04)
[2020-12-01] MEDS: SERTRALINE 50 MG TAB PO SCH ×2 (08:55→21:05)
[2020-12-01] MEDS: QUEtiapine FUMARATE 25 MG TAB PO SCH ×3 (08:55→17:27)
[2020-12-01] MEDS: GABAPENTIN 300 MG CAP PO SCH ×3 (08:56→17:27)
[2020-12-01] MEDS: buPROPion 100 MG TAB PO SCH (08:58)
[2020-12-01] MEDS ORDERED: SODIUM POLYSTYRENE 15 GM/60 ML UDBTL PO SCH (09:00)
--- NOTE | 2020-12-01 09:15 | NUR ---
RETURNED PHONE CALL TO PATIENT FAMILY, SPOKE WITH PT DAUGHTER, OWEN LAN. UPDATED ON PATIENT CONDITION, ALL QUESTIONS ANSWERED. SHE WILL RELAY INFORMATION TO THE REST OF THE FAMILY THIS MORNING.
--- NOTE | 2020-12-01 10:06 | NUR ---
PATIENT GRAND DAUGHTER MARY AMAYA CALLED AT THIS TIME, UPDATED ON PATIENT CONDITION, ALL QUESTIONS ANSWERED AT THIS TIME.
[2020-12-01] MEDS ORDERED: hydrALAZINE 20 MG/ML VIAL IVP PRN (10:15)
[2020-12-01] MEDS ORDERED: hydrALAZINE 20 MG/ML VIAL IVP SCH (10:17)
--- NOTE | 2020-12-01 10:18 | NUR ---
DR MILLS INFORMED OF PATIENT CONTINUED AGITATION, RESTLESSNESS, HYPERTENSION, DESATURATION. PER DR MILLS, HYDRALAZINE 10MG IVP ONCE NOW, ORDERED. SHE WILL BE HERE TO ASSESS THE PATIENT SHORTLY.
--- NOTE | 2020-12-01 10:35 | NUR ---
ONE TIME DOSE HYDRALAZINE ADMINISTERED PER MD ORDER FOR HYPERTENSION 173/88 AT THIS TIME. MED EDUCATION PROVIDED, REINFORCEMENT NEEDED. PATIENT CONTINUES RESTLESS AND AGITATED, NOT FOLLOWING COMMANDS. SPO2 87%, RT AT BEDSIDE. WILL CONTINUE TO MONITOR CLOSELY. DR MILLS AT BEDSIDE AT THIS TIME, HALDOL ORDERED FOR AGITATION, SEE ORDER.
[2020-12-01] MEDS ORDERED: HALOPERIDOL IM 5 MG/ML VIAL IM PRN (10:45)
[2020-12-01] MEDS: ACETAMINOPHEN 325 MG TAB PO PRN (10:48)
[2020-12-01] MEDS ORDERED: HALOPERIDOL IM 5 MG/ML VIAL IM SCH (10:50)
--- NOTE | 2020-12-01 11:02 | NUR ---
ONE TIME HALDOL DOSE ADMINISTERED PER MD ORDER. MED EDUCATION PROVIDED, REINFORCEMENT NEEDED. BP IMPROVED, NOW 132/91, SPO2 NOW 94% SPO2. PATIENT CONTINUES AGITATED AND RESTLESS, GRUNTING. PATIENT CHANGED, ON SATURATED DIAPER REMOVED, NEW DIAPER PLACED, CHANGED ALL DIRTY LINEN. SAFETY MEASURES IN PLACE. WILL CONTINUE TO MONITOR CLOSELY.
[2020-12-01] MEDS: HYDROmorphone 1 MG/ML AMP IVP PRN ×3 (11:42→22:47)
--- NOTE | 2020-12-01 11:59 | NUR ---
ORDERED STAT ABG GAVE PHYSICIAN RESULTS DONE PRIOR 25 MIN. PHYSICIAN STATES TO MONITOR PT RESPIRATORY STATUS.
--- NOTE | 2020-12-01 12:01 | NUR ---
ABG RESULTS GIVEN TO WILL MONITOR PT AT THIS TIME.
--- NOTE | 2020-12-01 12:15 | NUR ---
PATIENT CALM, SLEEPING. NO SIGNS OF ACUTE DISTRESS NOTED. SAFETY MEASURES IN PLACE.
[2020-12-01] MEDS: GAUZE TP SCH (13:10)
[2020-12-01] MEDS: FUROSEMIDE 40 MG/4 ML VIAL IVP SCH ×2 (13:10→17:26)
--- NOTE | 2020-12-01 13:13 | NUR ---
ADMINISTERED SCHEDULED MEDS PER MD ORDER. MED EDUCATION PROVIDED, REINFORCEMENT NEEDED. DR TENORIO AT BESIDE AT THIS TIME, ABD WOUND CARE PERFORMED BY DR TENORIO AT THIS TIME. SAFETY MEASURES IN PLACE.
[2020-12-01] MEDS ORDERED: AMIODARONE 150 MG in DEXTROSE 5% 100 ML IV SCH (13:15)
[2020-12-01] MEDS ORDERED: DEXT 5% / NACL 0.45% 1,000 ML IV SCH (13:20)
[2020-12-01] MEDS ORDERED: ALBUTEROL HFA MDI 90 MCG/ACTUATION 8 GM INH PRN (13:20)
--- NOTE | 2020-12-01 13:54 | NUR ---
ERAZO CATHETER PLACED AT THIS TIME. 50 ML CLEAR YELLOW URINE AT TIME OF INSERTION. WILL MONITOR CLOSELY.
[2020-12-01] MEDS: AMIODARONE 450 MG in DEXTROSE 5% 250 ML IV SCH ×2 (14:26→22:52)
--- NOTE | 2020-12-01 14:55 | NUR ---
ATTEMPTED TO SEE PATIENT FOR PHYSICAL THERAPY TREATMENT HOWEVER PATIENT IS SLEEPING/DROWSY UNABLE TO PARTICIPATE OR FOLLOW ANY COMMANDS DUE TO MEDS. WILL FOLLOW UP IF APPROPRIATE; RN AWARE.
[2020-12-01] MEDS ORDERED: TPN PER PHARMACY MC PRN (15:30)
--- NOTE | 2020-12-01 17:10 | NUR ---
CENTRAL LINE INSERTED BY DR TENORIO AT THIS TIME. PROCEDURE TOLERATED FAIRLY, NO SIGNS OF ACUTE DISTRESS NOTED. STAT XRAY ORDERED FOR PLACEMENT CONFIRMATION.
[2020-12-01] MEDS ORDERED: VANCOMYCIN PER PHARMACY MC PRN (17:30)
[2020-12-01] MEDS: VANCOMYCIN HCL 1.25 GM in DEXTROSE 5% 250 ML IV SCH (18:30)
--- NOTE | 2020-12-01 19:20 | NUR ---
RECEIVED BEDSIDE REPORT FROM MORNING SHIFT NURSE. PATIENT IS AOX1, AGITATED, RESTLESS, BEDREST, NOT FOLLOWING COMMANDS. HI VINCE NC @ 35 LPM, 100% FIO2. NG TUBE IN PLACE TO LEFT NARE TO LOW INTERMITTENT SUCTION. RIGHT WRIST 20G IV PLACED, RIGHT IJ CL INFUSING D5 1/2 NS@ 40 ML/HR, AND AMIODARONE DRIP @0.5 MG/MIN. ABD DALE DRAIN IN PLACE, SEROSANGUINEOUS FLUID. ABDOMINAL DRESSING DRY AND INTACT. APPETIZER PACKER IN PLACE, SAFETY MEASURES IN PLACE. ISOLATION PUI FOR COVID IS IN PLACE Addendum: 12/02/20 at 0432 by Regi Pearce RN LOUISE HINOJOSA
--- NOTE | 2020-12-01 19:20 | NUR ---
ENDORSED TO QUALITY TECH NURSE FOR CONTINUITY OF CARE. PATIENT STABLE AT THIS TIME.
[2020-12-01 19:26] LABS: ANION GAP 10.2 (8-16); CARBON DIOXIDE 28.4 mmol/L (21-32); CHLORIDE 107 mmol/L (98-107); CREATININE 1.1 mg/dL (0.6-1.3); GLUCOSE 157 mg/dL (74-106); POTASSIUM 3.6 mmol/L (3.5-5.1); SODIUM SERUM 142 mmol/L (136-145); UREA NITROGEN, BLOOD 43 mg/dL (7-18)
[2020-12-01] MEDS ORDERED: AMIODARONE 200 MG TAB PO SCH (21:00)
[2020-12-01] MEDS: ATORVASTATIN 20 MG TAB PO SCH (21:03)
[2020-12-01] MEDS: ZINC SULF 220 MG CAP PO SCH (21:04)
--- NOTE | 2020-12-01 22:47 | NUR ---
ADMINISTERED DILAUDID 1MG IVP
[2020-12-01 22:52] LABS: APPEARANCE,URINE CLOUDY (CLEAR); BILIRUBIN,URINE NEGATIVE (NEGATIVE); BLOOD, URINE 3+ (NEGATIVE); COLOR,URINE YELLOW (YELLOW); LEUKOCYTE ESTERASE ,URINE NEGATIVE (NEGATIVE); NITRITE, URINE NEGATIVE (NEGATIVE); UGLUCOSE NEGATIVE (NEGATIVE)
[2020-12-01 22:59] LABS: RBC,URINE TOO NUMEROUS TO COUN /HPF (0-5); WBC,URINE 0-5 /HPF (0-5)
[2020-12-02] VITALS (22 sets, daily range): BP systolic 109–199; BP diastolic 58–117
--- NOTE | 2020-12-02 02:05 | NUR ---
RT CHANGED FOI2 TO 85% FROM 100%
[2020-12-02] MEDS: HYDROmorphone 1 MG/ML AMP IVP PRN ×4 (02:26→21:13)
--- NOTE | 2020-12-02 02:31 | NUR ---
HAS NOT ADMINISTERED DILAUDID 1MG IVP, NOT 4 HOURS AT THIS TIME. WILL ADMINISTER DILAUDID 1MG IVP AFTER 4 HOURS
--- NOTE | 2020-12-02 04:45 | NUR ---
ADMINISTERED DILAUDID 1MG IVP
[2020-12-02] MEDS: METOPROLOL 50 MG TAB PO SCH (05:03)
[2020-12-02] MEDS: PIPERACILLIN/TAZOBACTAM 4.5 GM in DEXTROSE 5% 100 ML IV SCH ×3 (05:03→18:27)
[2020-12-02] MEDS: LORazepam 2 MG/ML VIAL IM/IVP PRN ×3 (05:43→22:18)
--- NOTE | 2020-12-02 05:52 | NUR ---
ADMINISTERED ATIVAN IMG IVP DUE TO AGITATION BP 200/123, HR 66. BP WENT DOWN TO 150/72, HR 58
[2020-12-02 06:37] LABS: BASOPHILS % (AUTO) 0.4 % (0.0-2.0); EOSINOPHILS % (AUTO) 0.3 % (0.0-4.0); HEMATOCRIT 32.4 % (36-52); HEMOGLOBIN 10.8 g/dL (12.0-18.0); LYMPHOCYTES # (AUTO) 0.2 K/uL (2.0-11.5); LYMPHOCYTES % (AUTO) 1.9 % (20.5-51.1); MEAN CORPUSCULAR HEMOGLOBIN 32 pg (27-31); MEAN CORPUSCULAR HGB CONC 34 g/dL (33-37); MEAN CORPUSCULAR VOLUME 96.4 fL (80-94); MONOCYTES # (AUTO) 0.7 K/uL (0.8-1.0); MONOCYTES % (AUTO) 5.2 % (1.7-9.3); NEUTROPHILS # (AUTO) 11.8 K/uL (1.8-7.7); NEUTROPHILS % (AUTO) 92.2 % (42.2-75.2); PLATELET COUNT (AUTO) 230 K/uL (140-450); RED BLOOD CELL COUNT(AUTO) 3.36 MIL/uL (4.20-6.10); RED CELL DISTRIBUTION WIDTH 15.2 % (11.6-13.7); WHITE BLOOD COUNT (AUTO) 12.8 K/uL (4.8-10.8)
[2020-12-02 06:54] LABS: ALBUMIN 1.3 g/dL (3.4-5.0); ANION GAP 10.8 (8-16); ASPARTATE AMINOTRANSFERASE 39 U/L (15-37); CARBON DIOXIDE 31.6 mmol/L (21-32); CHLORIDE 104 mmol/L (98-107); GLUCOSE 122 mg/dL (74-106); LACTATE DEHYDROGENASE 299 U/L (85-227); POTASSIUM 3.4 mmol/L (3.5-5.1); SODIUM SERUM 143 mmol/L (136-145); TOTAL BILIRUBIN 0.6 mg/dL (0.0-1.0); UREA NITROGEN, BLOOD 49 mg/dL (7-18)
--- NOTE | 2020-12-02 07:30 | NUR ---
RECEIVED BEDSIDE REPORT FROM ARTILLERY METEOROLOGICAL MAN NURSE. PATIENT SUPINE IN BED, SLEEPING, ANSWERS TO NAME. HOB 30 DEGREES, EVEN CHEST RISE AND FALL BILATERALLY, NO SIGNS OF ACUTE DISTRESS NOTED ON HI VINCE NC 35LPM, 85% FIO2, 95% SPO2. NG TUBE TO LOW INTERMITENT SUCTION. ERAZO CATHETER IN PLACE, DRAINING TO GRAVITY. R AC 20G, R IJ CENTRAL LINE TRIPLE LUMEN INFUSING AMIODARONE @ 0.5 MG/MIN, D5 0.45NS @ 40 ML/HR. GRZEGORZ SOFT WRIST RESTRAINS IN PLACE, NO SIGNS OF INJURY NOTED. ABD INCISION DRESSING DRY, CLEAN, INTACT WITH DALE DRAIN. ROOM CLEANER IN PLACE. SAFETY MEASURES IN PLACE.
[2020-12-02 07:49] LABS: MAGNESIUM 2.1 mg/dL (1.8-2.4); PHOSPHORUS 4.4 mg/dL (2.5-4.9)
--- NOTE | 2020-12-02 09:14 | NUR ---
PATIENT VERY AGITATED, RESTLESS IN BED KICKING HIS LEGS. ASKED IF HE'S IN PAIN, HE SAYS YES AND GRABS AT HIS STOMACH. BP INCREASED TO 192/94, HR 70, SPO2 87%, RR 25. PRN DILAUDID ADMINISTERED PER MD ORDER FOR COMPLAINT OF ABD PAIN. WILL CONTINUE TO MONITOR CLOSELY FOR VS AND AGITATION, PAIN.
[2020-12-02] MEDS: PANTOPRAZOLE 40 MG INJ VIAL IVP SCH (09:23)
[2020-12-02] MEDS: FUROSEMIDE 40 MG/4 ML VIAL IVP SCH ×2 (09:23→17:27)
[2020-12-02] MEDS: QUEtiapine FUMARATE 25 MG TAB PO SCH ×3 (09:25→17:28)
[2020-12-02] MEDS: FAMOTIDINE 20 MG TAB PO SCH ×2 (09:25→20:12)
[2020-12-02] MEDS: VITAMIN D 400 IU TAB PO SCH (09:25)
[2020-12-02] MEDS: ASCORBIC ACID 500 MG TAB PO SCH (09:26)
[2020-12-02] MEDS: SERTRALINE 50 MG TAB PO SCH ×2 (09:26→20:11)
[2020-12-02] MEDS: ZINC SULF 220 MG CAP PO SCH ×2 (09:26→20:12)
[2020-12-02] MEDS: buPROPion 100 MG TAB PO SCH (09:30)
[2020-12-02] MEDS: GABAPENTIN 300 MG CAP PO SCH ×3 (09:32→17:28)
--- NOTE | 2020-12-02 09:55 | NUR ---
PATIENT CONTINUES AGITATED, RESTLES, KICKING LEGS BP 187/86, HR 72. ADMINISTERED PRN ATIVAN PER MD ORDER. DR WARREN AT BEDSIDE AT THIS TIME. WILL CLOSELY MONITOR AND ADMINISTER PRN HYDRALAZINE IF HYPERTENSION CONTINUES.
--- NOTE | 2020-12-02 10:26 | NUR ---
PATIENT CONTINUES HYPERTENSIVE: SBP 180S/190S, PRN HYDRALAZINE ADMINISTERED PER MD CHRISTENSEN. PATIENT NOW MORE RELAXED IN BED S/P ATIVAN ADMINISTRATION. WILL CONTINUE TO MONITOR CLOSELY.
[2020-12-02] MEDS ORDERED: KCL 20 MEQ/WATER INJ PREMIX 100 ML IV SCH (12:30)
[2020-12-02] MEDS: hydrALAZINE 25 MG TAB PO SCH ×2 (13:10→20:11)
[2020-12-02] MEDS: GAUZE TP SCH (13:11)
[2020-12-02] MEDS: HYDRAGUARD CREAM TP SCH (13:11)
--- NOTE | 2020-12-02 14:56 | NUR ---
12/02/20 RD FOLLOW UP COMPLETED PLEASE REFER TO NUTRITION ASSESSMENT UNDER CARE ACTIVITY FOR ESTIMATED NUTRITIONAL NEEDS. 1. CONTINUE NPO MEDICALLY APPROPRIATE 2. INITIATE TPN PER PHARMACY -CURRENT ORDER IS D12%, AA 4.25%, LIPIDS 10% 100 ML AT 50 ML/HR (PROVIDES 793 KCAL AND 51 GM OF PROTEIN) 3. CONSULT RD PRN 4. RD TO FOLLOW-UP 2-3 DAYS, HIGH RISK JAN KINCAID RD
--- NOTE | 2020-12-02 15:53 | NUR ---
ATTEMPTED TO SEE PATIENT FOR PHYSICAL THERAPY TREATMENT HOWEVER PATIENT IS AGITATED/RESTLESS AND DOES NOT FOLLOW ANY COMMANDS. ON B/L RESTRAINTS. UNABLE TO PARTICIPATE WITH ACTIVITY AT THIS TIME. WILL FOLLOW UP IF APPROPRIATE; RN AWARE.
--- NOTE | 2020-12-02 15:58 | NUR ---
DC PLANNING: CALLED TRANSFER AT [phone] AND [phone] HOLD FOR MORE THAT 45 MIN UNABLE TO SPEAK WITH ANY ONE OR TO LEAVE A MESSAGE. CM TO FOLLOW Addendum: 12/04/20 at 1531 by Linda Smith RN LATE ENTRY: 12/03/20 1400 CALLED TRANSFER [phone] CM PHONE WENT TO STRAIGHT TO MUSIC, HELD FOR 1 HR UNABLE TO LEAVE A MESSAGE OR TO TALK TO ANY ONE CM TO FOLLOW. Addendum: 12/04/20 at 1532 by Linda Smith RN DC PLANNING: Call placed to [facility] today at [phone] at 10:55 AM: Spoke with Orin. Status: Pending. No documentation missing and bilingual sales representative states to keep sending daily faxes with patient updates. They are not requesting transfers because there's no beds available and to please keep the patient. Auth#[id number]. Addendum: 12/07/20 at 1155 by Linda Smith RN DC PLANNING: CALLED [facility] [phone] SPOKE WITH RAMIRO CASE LD TEACHER UPDATED CLINICALS SHE STATED TRANSFER IS AUTHORIZED UNTIL DISCHARGE AND REQUEST CLINICALS TO BE FAXED DAILY. CM TO FOLLOW Addendum: 12/08/20 at 1542 by Linda Smith RN DC PLANNING: CALLED PT DAUGHTER SPOKE WITH GILL AND PT'S BROTHER DISCUSSED THE DC PLAN RECOMMENDED BY TO GO TO [facility]. THEY BOTH STATED WILL DISCUSS WITH HIM AND OTHER FAMILY MEMBER, AND ALSO THEY MENTIONED THAT IF IT IS POSSIBLE TO GO TO [facility]. WILL NOTIFY AND [facility] WHEN STABLE CM TO FOLLOW. Addendum: 12/09/20 at 1527 by Linda Smith RN DC PLANNING: CALLED TRANSFER SPOKE WITH CASE LD TEACHER STATED WILL SEND THE FORM TO BE FILLED FOR THE ACUTE REHAB CM AWAITING FOR THE FORM . Addendum: 12/10/20 at 1358 by Linda Smith RN DC PLANNING: CALLED TRANSFER DC PLANNING DEPT, SPOKE WITH DENNIS STATED DIDN'T RECEIVE ANY, I CLARIFIED I HAVE THE CONFIRMATION FOR THE FORM SEND YESTERDAY, DENNIS CHECKED AND REQUESTING TO BE FAXED AGAIN. I FAXED TO [phone] AND I CALLED [facility] SPOKE WITH SYD AND FAXED TO [phone] . CM TO FOLLOW Addendum: 12/10/20 at 1504 by Linda Smith RN DC PLANNING: RECEIVED A CALL FROM [facility] [phone] SPOKE WITH BHARATI RECEIVED ALL THE CLINICALS AND PATIENT WILL BE A GOOD CANDIDATE FOR REHAB HOWEVER NEEDS AN AUTH FROM TRANSFER. CALLED TRANSFER ON HOLD FOR A LONG TIME STILL AWAITING TO TALK TO SOME ONE AT TRANSFER. CM TO FOLLOW Addendum: 12/11/20 at 1130 by Linda Smith RN DC PLANNING: CALLED TRANSFER [phone] SPOKE WITH OSNJA CASE LD TEACHER STATED STILL HASN'T REVIEW IT AND ONCE IT'S DONE WILL CALL BACK I ALSO MENTION [facility] IS ACCEPTING PATIENT . RECEIVED A CALL FROM [facility] ADMITTING SPOKE WITH BHARATI STATED PT IS A GOOD CANDIDATE FOR THERAPY AND ACCEPTED, JUST TO CALL HER ONCE WE HAVE TRANSFER'S APPROVAL. CM TO FOLLOW Addendum: 12/11/20 at 1708 by Linda Smith RN DC PLANNING: CALLED TRANSFER SPOKE WITH SHAQUILLE STATED STILL AWAITING FOR THE MD TO APPROVE THE [facility] REQUEST, STATED MIGHT NOT BE TONIGHT AND WILL FOLLOW UP TOMORROW PROVIDE HOUSE SUP AND UNIT NUMBER. I ASKED HER WILL APPROVE THE STAY PER [facility] STAY WILL BE APPROVED UNTIL DISCHARGE. NOTIFIED PT'S NURIA AND DAUGHTER OWEN. Addendum: 12/14/20 at 1217 by Linda Smith RN DC PLANNING: [facility] SPOKE WITH DENNIS EDMONDSON IS THE CM TODAY AND WILL CALL ME BACK. I ASKED HER WHAT WAS DONE ON THE WEEKEND PER EMLY THE WEEKEND NOTES STATED RECONSIDERATION AND WILL REVIEW IT. I INFORMED HER THAT PT HAS LTAC ORDER AND I FAXED THE ORDER. CM TO FOLLOW Addendum: 12/14/20 at 1647 by Linda Smith RN DC PLANNING: CALLED TRANSFER SPOKE WITH DELVIS OSWALD STATED STILL AWAITING FOR ANSWER FOR APPROVAL, EITHER LTAC OR [facility] FAXED ALL THE CLINICALS, DELVIS SPOKE WITH PT'S DAUGHTER WELL. PROVIDE UNIT NUMBER FOR A POSSIBLE TRANSFER. I UPDATED THE FAMILY SPOKE WITH PT'S DAUGHTER OWEN ,STILL INSIST TO GO TO ACUTE REHAB. DAREK EDMONDSON PROVIDE THE AUTH [id number] AND IT'S APPROVED UNTIL . CM TO FOLLOW Addendum: 12/15/20 at 1154 by Linda Smith RN DC PLANNING: CALLED TRANSFER SPOKE WITH ANEUDY OSWALD [phone] STATED HE IS THE CM ASSIGNED TODAY, STILL AWAITING FOR THE DECISION FOR LTAC APPROVAL. CALLED OWEN PT'S DAUGHTER IN [facility] UPDATED HER ,SHE STATED RECEIVED A CALL LAST NIGHT FROM DELVIS OSWALD AT TRANSFER TOLD HER DENIED THE [facility] AND APPROVED FOR SNF. HOWEVER FAMILY AND PT REFUSED SNF. BASED ON TODAY'S CLINICAL PT NEEDS LTAC FOR DRAINAGE CARE, WBC IS 17.3. PER ANEUDY WILL REVIEW THE CLINICALS AND CALL BACK. CM TO FOLLOW Addendum: 12/15/20 at 1552 by Linda Smith RN DC PLANNING: CALLED [facility] AT [phone] NO ANSWER UNABLE TO LEAVE MESSAGE. CM TO FOLLOW Addendum: 12/15/20 at 1625 by Linda Smith RN DC PLANNING: CALLED [facility] AFTER A LONG HOLD SPOKE WITH ANEUDY Hubbard CM STATED STILL AWAITING FOR APPROVAL HE E MAILED FOR THE DECISION MAKERS. ONCE HE GETS IT WILL CALL BACK. CALLED OWEN LUNA AND UPDATED HER. CM TO FOLLOW Addendum: 12/16/20 at 1133 by Linda Smith RN DC PLANNING: CALLED [facility] AFTER A LONG HOLD I SPOKE WITH THE CASE LD TEACHER JEANNA SEAMAN IS THE CM AND TRANSFERRED THE CALL BUT ON HOLD MORE THAN 45 MIN AND TOLD ME CM WILL CALL AWAITING FO THE CM TO CALL Addendum: 12/16/20 at 1135 by Linda Smith RN CALLED PT DAUGHTER IN [facility] OWEN UPDATED HER THE RESPONSE FROM TRANSFER PER OWEN SHE CALLED THEM TO AND UNABLE TO TALK TO ANYONE AND WILL CALL TRANSFER Enoch CM TO FOLLOW Addendum: 12/16/20 at 1331 by Linda Smith RN DC PLANNING: URSZULA FROM TRANSFER CALLED STATED, TALKED TO FAMILY AND STILL AWAITING FOR THE APPROVAL FOR LTAC , PROVIDE ALL THE INFORMATION OF PATIENT HT AND WT ,COVID STATUS, AND MALIK'S LIAISON HAYDEN'S NUMBER . CM TO FOLLOW Addendum: 12/17/20 at 1206 by Linda Smith RN DC PLANNING: RECEIVED A CALL FROM URSZULA AT TRANSFER STATED PATIENT IS APPROVED FOR LTAC , CLARIFIED WITH [facility] AND FAXED THE LATEST CLINICAL. CALLED PT DAUGHTER IN [facility] SPOKE WITH OWEN NOTIFIED HER ITS APPROVED AND AWAITING FOR BED. NOTIFIED NOEMI Kendall CM TO FOLLOW Addendum: 12/17/20 at 1439 by Linda Smith RN DC PLANNING: PT GOT ACCEPTED AT [facility], CAN GO TO ROOM 120B # TO GIVE REPORT [phone] TRANSPORT WILL BE ARRANGE BY TRANSFER SCALE ATTENDANT TIME WILL BE 1900. NOTIFIED NOEMI SALES CM TO FOLLOW
[2020-12-02] MEDS: AMIODARONE 450 MG in DEXTROSE 5% 250 ML IV SCH (17:25)
--- NOTE | 2020-12-02 19:30 | NUR ---
RECEIVED BEDSIDE REPORT FROM DAY SHIFT NURSE CONSUELO RN, PT RESTING, NO DISTRESS NOTED, PT AAOX0, CONFUSED, SLEEPING. PT ON HIGH FLOW OXYGEN 35L 85%FIO2 SATURATING @ 94%. NGT TO LEFT NARES, INPLACE TO CONTINUOUS SUCTION. NOTED BILE COLORED FLUID FROM NGT. LUNG SOUNDS COARSE. CENTRAL LINE TO RIGHT IJ TRIPLE LUMEN, PATENT ,INTACT, INFUSING AMIODARONE @ 0.5MG/HR, D5NS @ 40ML/HR, INFUSING WELL, ERAZO CATH IN PLACE DRAINING TO GRAVITY. INITIAL ASSESSMENT DONE, ALL SAFETY PRECAUTION MET, PT ON BILATERAL SOFT WRIST RESTRAINS, CALL LIGHT WITHIN REACH, WILL CONTINUE TO MONITOR.
[2020-12-02] MEDS: VANCOMYCIN HCL 1.25 GM in DEXTROSE 5% 250 ML IV SCH (19:55)
[2020-12-02] MEDS: ATORVASTATIN 20 MG TAB PO SCH (20:12)
[2020-12-02] MEDS: MULTIVITAMIN-12 10 ML in DEXTROSE 50% 600 ML, AMINO ACIDS 8.5% 500 ML, FAT EMULSION 20%... IV SCH ×4 (20:16)
--- NOTE | 2020-12-02 20:16 | NUR ---
DUE MEDICATIONS ADMINISTERED, PT TOLERATED WELL, TPN STARTED @ 30ML/HR, WILL CONTINUE TO MONITOR.
--- NOTE | 2020-12-02 21:13 | NUR ---
PT FLACC 10, KICKING SQUIRMING, CRYING, HR ELEVATED, BP ELEVATED, MEDICATION DILAUDID PER DR ORDER ADMINISTERED, WILL CONTINUE TO MONITOR.
[2020-12-02] MEDS: BLOOD GLUCOSE MONITORING 1 DEV DEV MC SCH (22:08)
[2020-12-02] MEDS: INSULIN LISPRO SLIDING SCALE 100 UNITS/ML VIAL SUBQ PRN (22:10)
--- NOTE | 2020-12-02 22:10 | NUR ---
CHECKED PT SUGAR 166, 2 UNITS INSULIN ADMINISTERED PER PROTOCOL, TPN INCREASED TO 50ML/HR, WILL CONTINUE TO MONITOR.
--- NOTE | 2020-12-02 22:18 | NUR ---
PT AGITATED KICKING AND TRYING TO PULL LINES. ATIVAN GIVEN PER DR ORDER. WILL CONTINUE TO MONITOR.
[2020-12-03] VITALS (23 sets, daily range): BP systolic 96–184; BP diastolic 56–112
[2020-12-03] MEDS: BLOOD GLUCOSE MONITORING 1 DEV DEV MC SCH ×4 (00:17→17:33)
[2020-12-03] MEDS: INSULIN LISPRO SLIDING SCALE 100 UNITS/ML VIAL SUBQ PRN ×3 (00:18→17:34)
[2020-12-03] MEDS: PIPERACILLIN/TAZOBACTAM 4.5 GM in DEXTROSE 5% 100 ML IV SCH ×4 (00:23→17:38)
[2020-12-03] MEDS: MORPHINE SULFATE 4 MG/ML SYR IV PRN (00:50)
[2020-12-03] MEDS: HYDRAGUARD CREAM TP SCH ×2 (01:02→12:14)
[2020-12-03] MEDS: LORazepam 2 MG/ML VIAL IM/IVP PRN ×2 (02:22→06:43)
--- NOTE | 2020-12-03 02:22 | NUR ---
PT AGITATED, KEEPS TRYING TO PULL OFF OXYGEN. MEDICATION PER DR ORDER GIVEN, PT TOLERATED WELL, WILL CONTINUE TO MONITOR.
[2020-12-03] MEDS: HYDROmorphone 1 MG/ML AMP IVP PRN ×2 (04:19→09:47)
[2020-12-03] MEDS: hydrALAZINE 25 MG TAB PO SCH ×3 (04:19→20:19)
[2020-12-03 06:11] LABS: BASOPHILS % (AUTO) 0.1 % (0.0-2.0); LYMPHOCYTES # (AUTO) 0.2 K/uL (2.0-11.5); LYMPHOCYTES % (AUTO) 1.7 % (20.5-51.1); MEAN CORPUSCULAR HEMOGLOBIN 32 pg (27-31); MEAN CORPUSCULAR HGB CONC 33 g/dL (33-37); MEAN CORPUSCULAR VOLUME 95.8 fL (80-94); MONOCYTES # (AUTO) 0.6 K/uL (0.8-1.0); MONOCYTES % (AUTO) 4.2 % (1.7-9.3); NEUTROPHILS # (AUTO) 12.5 K/uL (1.8-7.7); PLATELET COUNT (AUTO) 240 K/uL (140-450); RED BLOOD CELL COUNT(AUTO) 3.45 MIL/uL (4.20-6.10); RED CELL DISTRIBUTION WIDTH 15.1 % (11.6-13.7); WHITE BLOOD COUNT (AUTO) 13.3 K/uL (4.8-10.8)
[2020-12-03 06:17] LABS: ALBUMIN 1.7 g/dL (3.4-5.0); ANION GAP 6.8 (8-16); ASPARTATE AMINOTRANSFERASE 36 U/L (15-37); CARBON DIOXIDE 34.3 mmol/L (21-32); CHLORIDE 105 mmol/L (98-107); CREATININE 0.9 mg/dL (0.6-1.3); GLUCOSE 141 mg/dL (74-106); LACTATE DEHYDROGENASE 322 U/L (85-227); POTASSIUM 3.1 mmol/L (3.5-5.1); SODIUM SERUM 143 mmol/L (136-145); TOTAL BILIRUBIN 0.5 mg/dL (0.0-1.0); UREA NITROGEN, BLOOD 40 mg/dL (7-18)
[2020-12-03 06:31] LABS: MAGNESIUM 2.1 mg/dL (1.8-2.4)
--- NOTE | 2020-12-03 06:43 | NUR ---
PT AGITATED, KICKING, ATIVAAN GIVEN PER DR ORDER, WILL CONTINUE TO MONITOR.
--- NOTE | 2020-12-03 07:17 | NUR ---
ENDORSED PT TO DAY SHIFT NURSE KEVIN RN FOR CONTINUOUS OF CARE.
--- NOTE | 2020-12-03 07:30 | NUR ---
RECEIVED REPORT FROM INNER TUBE TUBER MACHINE OPERATOR NURSE. PT IN BED WITH HOB ELEVATED. AOX0, CONFUSED WITH EPISODES OF RESTLESSNESS. RESPONSIVE TO TACTILE STIMULI. ON HIGH FLOW OXYGEN 35L 85%FIO2 SATURATING @ 93-99%. NGT TO LEFT NARES, IN PLACE CONNECTED TO SUCTION. NOTED BILE COLORED FLUID FROM NGT. LUNG SOUNDS COARSE. CENTRAL LINE TO RIGHT IJ TRIPLE LUMEN INFUSING AMIODARONE @ 0.5MG/HR,TPN @ 50ML/HR, INFUSING WELL, ERAZO CATH IN PLACE DRAINING TO GRAVITY. ON BILATERAL SOFT WRIST RESTRAINS, SAFETY PRECAUTIONS IN PLACE. CALL LIGHT WITHIN REACH, WILL CONTINUE TO MONITOR.
[2020-12-03] MEDS: AMIODARONE 450 MG in DEXTROSE 5% 250 ML IV SCH (08:00)
--- NOTE | 2020-12-03 09:30 | NUR ---
DUE MORNING MEDS GIVEN VIA NGT ORDERED. ORAL CARE AND ERAZO CARE DONE
[2020-12-03] MEDS: FUROSEMIDE 40 MG/4 ML VIAL IVP SCH ×2 (09:44→16:56)
[2020-12-03] MEDS: PANTOPRAZOLE 40 MG INJ VIAL IVP SCH (09:45)
[2020-12-03] MEDS: VITAMIN D 400 IU TAB PO SCH (09:45)
[2020-12-03] MEDS: buPROPion 100 MG TAB PO SCH (09:45)
[2020-12-03] MEDS: QUEtiapine FUMARATE 25 MG TAB PO SCH ×3 (09:45→16:56)
[2020-12-03] MEDS: ASCORBIC ACID 500 MG TAB PO SCH (09:45)
[2020-12-03] MEDS: ZINC SULF 220 MG CAP PO SCH ×2 (09:45→20:19)
[2020-12-03] MEDS: GABAPENTIN 300 MG CAP PO SCH ×3 (09:45→16:56)
[2020-12-03] MEDS: SERTRALINE 50 MG TAB PO SCH ×2 (09:45→20:19)
[2020-12-03] MEDS: POTASSIUM CHLORIDE 20% 40 MEQ/15 ML UDC GT PRN (09:47)
--- NOTE | 2020-12-03 09:47 | NUR ---
PT GROANING, AND RESTLESS. DILAUDID GIVEN ORDERED
--- NOTE | 2020-12-03 11:00 | NUR ---
SEEN BY DR WARREN, CONTINUE AMIO DRIP UNTIL FURTHER ORDERS
[2020-12-03] MEDS: GAUZE TP SCH (12:14)
[2020-12-03] MEDS ORDERED: KCL 20 MEQ/WATER INJ PREMIX 200 ML IV SCH (13:30)
--- NOTE | 2020-12-03 13:32 | NUR ---
AOX0, RESPONSIVE ONLY TO TOUCH, NO SOB ON 35L HIGH FLOW
--- NOTE | 2020-12-03 15:00 | NUR ---
PT IN BED, FLACC 0, NO RESPIRATORY DISTRESS, RESPONSIVE TO TOUCH
--- NOTE | 2020-12-03 15:28 | NUR ---
ATTEMPTED TO SEE PATIENT FOR PHYSICAL THERAPY TREATMENT HOWEVER PATIENT CONTINUES TO BE INAPPROPRIATE FOR THERAPY AT THIS TIME. PATIENT WILL BE UNABLE TO PARTICIPATE PER RN. WILL FOLLOW UP IF APPROPRIATE TOMORROW.
--- NOTE | 2020-12-03 16:39 | NUR ---
PERICARE DONE, ORAL CARE DONE. TURNED AND REPOSITIONED PT
--- NOTE | 2020-12-03 18:38 | NUR ---
PT RESTING IN BED, AOX0, FLACC 0, NO RESPIRATORY DISTRESS
[2020-12-03] MEDS: VANCOMYCIN HCL 1.25 GM in DEXTROSE 5% 250 ML IV SCH (19:00)
--- NOTE | 2020-12-03 19:30 | NUR ---
RECEIVED REPORT FROM DAY SHIFT RN; PT HAS EYES CLOSED; AOX 0, UNABLE TO EXPRESS NEEDS OR WANTS @ THIS TIME. PT MAKING INCOMPREHENSIBLE SOUNDS. AROUSABLE TO TOUCH. BILATERAL SOFT WRIST RESTRAINTS IN PLACE, RELEASED REAPPLIED PER PROTOCOL, NO S/S OF SKIN BREAKDOWN. SR 80, PALPABLE PULSES, NO EDEMA NOTED. NGT TO L NARES, TO INTERMITTENT SUCTION. ACTIVE BOWEL SOUNDS, S/P ABD SURGERY, REPAIR OF PERFORATED PEPTIC ULCER WITH RODERICK. ERAZO CATH DRAINING YELLOW URINE. SKIN WARM DRY PINK. BED LOCKED IN LOWEST POSITION. SAFETY PRECAUTIONS IN PLACE. WILL CONTINUE TO OBSERVE
[2020-12-03] MEDS: MULTIVITAMIN-12 10 ML in DEXTROSE 50% 600 ML, AMINO ACIDS 8.5% 500 ML, FAT EMULSION 20%... IV SCH ×4 (19:55)
--- NOTE | 2020-12-03 20:00 | NUR ---
PT RECEIVED SLEEPING ON HFNC 35L 75% 36*C W/ NO DISTRESS NOTED WILL CONTINUE TO MONITOR
[2020-12-03] MEDS ORDERED: CRUSHER, PILL MC ONE (20:11)
[2020-12-03] MEDS: ATORVASTATIN 20 MG TAB PO SCH (20:19)
--- NOTE | 2020-12-03 21:34 | NUR ---
PT TURNED AND REPOSITIONED, HOB>30 DEGREES WILL CONTINUE TO OBSERVE
[2020-12-03] MEDS: BACLOFEN 10 MG TAB PO PRN (22:30)
[2020-12-04] VITALS (21 sets, daily range): BP systolic 108–171; BP diastolic 65–126
[2020-12-04] MEDS: PIPERACILLIN/TAZOBACTAM 4.5 GM in DEXTROSE 5% 100 ML IV SCH ×4 (00:27→18:58)
[2020-12-04] MEDS: BLOOD GLUCOSE MONITORING 1 DEV DEV MC SCH ×4 (00:28→18:58)
--- NOTE | 2020-12-04 00:35 | NUR ---
PT TURNED AND REPOSITIONED; FLACC0 NO S/S OF DISTRESS NOTED. WILL CONTINUE TO OBSERVE
[2020-12-04] MEDS: HYDRAGUARD CREAM TP SCH ×2 (01:00→13:27)
[2020-12-04] MEDS: AMIODARONE 450 MG in DEXTROSE 5% 250 ML IV SCH ×2 (02:39→18:30)
--- NOTE | 2020-12-04 04:15 | NUR ---
AM CARE DONE, LINEN CHANGED
[2020-12-04] MEDS: hydrALAZINE 25 MG TAB PO SCH ×3 (05:00→21:02)
[2020-12-04 06:11] LABS: BASOPHILS % (AUTO) 0.4 % (0.0-2.0); EOSINOPHILS % (AUTO) 0.2 % (0.0-4.0); HEMATOCRIT 35.5 % (36-52); HEMOGLOBIN 11.7 g/dL (12.0-18.0); LYMPHOCYTES # (AUTO) 0.4 K/uL (2.0-11.5); LYMPHOCYTES % (AUTO) 3.1 % (20.5-51.1); MEAN CORPUSCULAR HEMOGLOBIN 32 pg (27-31); MEAN CORPUSCULAR HGB CONC 33 g/dL (33-37); MEAN CORPUSCULAR VOLUME 95.9 fL (80-94); MONOCYTES # (AUTO) 0.4 K/uL (0.8-1.0); MONOCYTES % (AUTO) 3.4 % (1.7-9.3); NEUTROPHILS % (AUTO) 92.9 % (42.2-75.2); PLATELET COUNT (AUTO) 276 K/uL (140-450); RED CELL DISTRIBUTION WIDTH 15.3 % (11.6-13.7); WHITE BLOOD COUNT (AUTO) 11.9 K/uL (4.8-10.8)
[2020-12-04] MEDS: HYDROmorphone 1 MG/ML AMP IVP PRN (06:15)
[2020-12-04] MEDS: LORazepam 2 MG/ML VIAL IM/IVP PRN (06:40)
[2020-12-04 06:42] LABS: MAGNESIUM 2.1 mg/dL (1.8-2.4)
--- NOTE | 2020-12-04 06:45 | NUR ---
PT AGITATED; PRN ATIVAN GIVEN. WILL CONTINUE TO OBSERVE.
[2020-12-04 07:18] LABS: ALBUMIN 1.8 g/dL (3.4-5.0); ANION GAP 8.7 (8-16); ASPARTATE AMINOTRANSFERASE 43 U/L (15-37); CARBON DIOXIDE 32.7 mmol/L (21-32); CHLORIDE 106 mmol/L (98-107); CREATININE 0.9 mg/dL (0.6-1.3); GLUCOSE 117 mg/dL (74-106); LACTATE DEHYDROGENASE 377 U/L (85-227); POTASSIUM 3.4 mmol/L (3.5-5.1); SODIUM SERUM 144 mmol/L (136-145); TOTAL BILIRUBIN 0.5 mg/dL (0.0-1.0); UREA NITROGEN, BLOOD 34 mg/dL (7-18)
--- NOTE | 2020-12-04 07:33 | NUR ---
REPORT GIVEN TO DAYSHIFT FOR CONTINUITY OF CARE
--- NOTE | 2020-12-04 07:33 | NUR ---
RECEIVED BEDSIDE REPORT FROM CRUSHER MACHINE OPERATOR NURSE. PATIENT SUPINE IN BED, SLEEPING, GRUNTS AND ALOC WHEN SPOKEN TO, DOES NOT ANSWER QUESTIONS OR FOLLOW COMMANDS, SQUIRMING AND KICKING LEGS IN BED. HI VINCE NC: 35 LPM, 75% FIO2, SPO2 95%, CHEST RISE AND FALL EQUAL BILATERALLY, NO SIGNS OF ACUTE DISTRESS NOTED. NG TUBE HOOKED TO LOW INTERMITTENT SUCTION. GRZEGORZ SOFT WRIST RESTRAINS IN PLACE, RELEASED AT THIS TIME, NO SIGNS OF INJURY NOTED, MASSAGE PROVIDED. ERAZO CATHETER IN PLACE, DRAINING TO GRAVITY. RIJ TRIPPLE LUMEN, CLEAN DRY AND INTACT, INFUSING: AMIODARONE @ 0.5 MG/MIN, NS @ 3 ML/HR, TPN @ 50 ML/HR. PAY STATION ATTENDANT IN PLACE, SAFETY MEASURES IN PLACE.
[2020-12-04 07:49] LABS: PHOSPHORUS 2.5 mg/dL (2.5-4.9)
--- NOTE | 2020-12-04 08:12 | NUR ---
PATIENT CONTINUES AGITATED. REPOSITIONED FOR COMFORT AT THIS TIME, OFFLOADED PRESSURE WITH PILLOWS AND CHANGED ALL DIRTY LINEN. WILL CONTINUE TO MONITOR.
[2020-12-04] MEDS: VANCOMYCIN 1,000 MG in DEXTROSE 5% 250 ML IV SCH ×2 (09:02→21:02)
[2020-12-04] MEDS: FUROSEMIDE 40 MG/4 ML VIAL IVP SCH ×2 (09:03→17:45)
[2020-12-04] MEDS: PANTOPRAZOLE 40 MG INJ VIAL IVP SCH (09:04)
[2020-12-04] MEDS: VITAMIN D 400 IU TAB PO SCH (09:04)
[2020-12-04] MEDS: QUEtiapine FUMARATE 25 MG TAB PO SCH ×3 (09:05→17:46)
[2020-12-04] MEDS: GABAPENTIN 300 MG CAP PO SCH ×3 (09:05→17:45)
[2020-12-04] MEDS: ASCORBIC ACID 500 MG TAB PO SCH (09:05)
[2020-12-04] MEDS: buPROPion 100 MG TAB PO SCH (09:06)
[2020-12-04] MEDS: ZINC SULF 220 MG CAP PO SCH ×2 (09:06→21:02)
[2020-12-04] MEDS: SERTRALINE 50 MG TAB PO SCH ×2 (09:07→21:02)
--- NOTE | 2020-12-04 09:10 | NUR ---
ADMINISTERED SCHEDULED MEDS PER MD ORDER. MED EDUCATION PROVIDED, REINFORCEMENT NEEDED. G TUBE RESIDUAL 70 ML, FLUSHED BEFORE AND AFTER MEDS. G TUBE CLAMPED AT THIS TIME AND SUCTION PAUSED. PT CONTINUES ALOC, GRUNTS IN BED AND RESTLESS WITH FEET. RESTRAINS RELEASED FOR 15 DURING MEDICATION ADMINISTRATION, NO SIGNS OF INJURY NOTED.
--- NOTE | 2020-12-04 09:43 | NUR ---
RT AT BEDSIDE, FIO2 DECREASED TO 70% AT THIS TIME. WILL MONITOR CLOSELY.
--- NOTE | 2020-12-04 10:39 | NUR ---
PATIENT GRANDDAUGHTERMARY CALLED AT THIS TIME. UPDATED ON PATIENT CONDITION, ALL QUESTIONS ANSWERED AT THIS TIME.
--- NOTE | 2020-12-04 12:51 | NUR ---
PT FOUND WITH FEVER 100.4 DEGREES FAHRENHEIT, PRN TYLENOL ADMINISTERED PER MD ORDER. BED COVERINGS REMOVED, PATIENT REPOSITIONED FOR COMFORT AND GRZEGORZ SOFT WRIST RESTRAINTS REMOVED DURING ASSESSMENT, NO SIGNS OF INJURY NOTED. BLOOD GLUCOSE CHECKED, 143, NO INSULIN COVERAGE NECESSARY. WILL MONITOR CLOSELY.
[2020-12-04] MEDS: GAUZE TP SCH (13:27)
[2020-12-04] MEDS ORDERED: KCL 20 MEQ/WATER INJ PREMIX 200 ML IV SCH (13:30)
--- NOTE | 2020-12-04 13:51 | NUR ---
ATTEMPTED TO SEE PATIENT FOR PHYSICAL THERAPY TREATMENT HOWEVER PATIENT CONTINUES TO BE INAPPROPRIATE FOR PHYSICAL THERAPY AT THIS TIME; UNABLE TO FOLLOW COMMANDS OR PARTICIPATE. ATTEMPTED 12/01-12/04 HOWEVER NO CHANGES WITH COGNITIVE STATUS TO FOLLOW COMMANDS. SPOKE WITH RN; NEW ORDER WILL BE NEEDED WHEN PATIENT IS APPROPRIATE FOR P.T.
--- NOTE | 2020-12-04 14:45 | NUR ---
DR WARREN AT BEDSIDE, AMIODARONE DRIP TO CONTINUE FOR NOW UNTIL FURTHER NOTICE TO PREVENT RECURRENT A-FIB RVR PER DR WARREN.
--- NOTE | 2020-12-04 15:14 | NUR ---
12/04/20 RD FOLLOW UP COMPLETED PLEASE REFER TO NUTRITION ASSESSMENT UNDER CARE ACTIVITY FOR ESTIMATED NUTRITIONAL NEEDS. 1. CONTINUE TPN; INCREASE NUTRIENTS GRADUALLY TO MEET AT LEAST 75% OF ESTIMATED KCAL AND PROTEIN NEEDS. -CURRENT ORDER IS D15%, AA 4.25%, LIPIDS 20% 250 ML AT 50 ML/HR (PROVIDES 1321 KCAL AND 51 GM OF PROTEIN) 2. CONSULT RD PRN 3. WHEN MEDICALLY CLEAR ADVANCE TO LIQUID DIET 4. RD TO FOLLOW-UP 2-3 DAYS, HIGH RISK JAN KINCAID RD
--- NOTE | 2020-12-04 18:15 | NUR ---
PATIENT AGITATED, RESTLESS, BP ELEVATED, PRN ATIVAN 1MG ADMINISTERED IV PER MD ORDER. WASTED WITH GLOBAL PROFESSIONAL MAMI.
--- NOTE | 2020-12-04 19:35 | NUR ---
RECEIVED REPORT FROM DAY SHIFT RN; PT HAS EYES CLOSED; AOX 0, PT MAKING INCOMPREHENSIBLE SOUNDS. AROUSABLE TO TOUCH. BILATERAL SOFT WRIST RESTRAINTS IN PLACE, RELEASED REAPPLIED PER PROTOCOL, NO S/S OF SKIN BREAKDOWN. SR 70-80S, PALPABLE PULSES, NO EDEMA NOTED. NGT TO L NARES, TO INTERMITTENT SUCTION. ACTIVE BOWEL SOUNDS, S/P ABD SURGERY, REPAIR OF PERFORATED PEPTIC ULCER WITH RODERICK. + BM TODAY. ERAZO CATH DRAINING YELLOW URINE. SKIN WARM DRY PINK. BED LOCKED IN LOWEST POSITION. SAFETY PRECAUTIONS IN PLACE. WILL CONTINUE TO OBSERVE
--- NOTE | 2020-12-04 19:43 | NUR ---
PT RECEIVED ON HFNC RESTING COMFORTABLY ( HFNC 30L 50% 36* ) HFNC IS PLUGGED INTO RED OUTLET W/ WATER BAG 1/2 FULL WILL CONTINUE TO MONITOR
[2020-12-04] MEDS: MULTIVITAMIN-12 10 ML in DEXTROSE 50% 600 ML, AMINO ACIDS 8.5% 500 ML, FAT EMULSION 20%... IV SCH ×4 (20:00)
--- NOTE | 2020-12-04 20:45 | NUR ---
PT TAKEN TO CT WITH RT FOR TRANSPORT.
--- NOTE | 2020-12-04 20:47 | NUR ---
PT TRANSPORTED TO AND FROM CT ON 15L OXY HFNC WAS PLACED ON STDBY PT TOLERATED TRANSPORT AND OXY WELL PT CURRENTLY ON 10L OXY W/ NO DISTRESS NOTED AT THIS TIME CURRENT SPO2 98% HR 83 f22
[2020-12-04] MEDS: ATORVASTATIN 20 MG TAB PO SCH (21:02)
--- NOTE | 2020-12-04 21:59 | NUR ---
PT HAD BM, CLEANED, LINEN CHANGED. WILL CONTINUE TO OBSERVE
--- NOTE | 2020-12-04 23:05 | NUR ---
GRAND DAUGHTER GRACE CALLED; UPDATED. NO ACUTE DISTRESS. WILL CONTINUE TO OBSERVE.
[2020-12-05] VITALS (24 sets, daily range): BP systolic 96–143; BP diastolic 60–82
--- NOTE | 2020-12-05 00:15 | NUR ---
X1 LARGE LIQUID BM NOTED. PT CLEANED, TURNED AND REPOSITIONED. WILL CONTINUE TO OBSERVE
--- NOTE | 2020-12-05 00:28 | NUR ---
PT RESTING COMFORTABLY ON 10L OXY CURRENT SPO2 98% HR 78 f20 WILL CONTINUE TO MONITOR
[2020-12-05] MEDS: HYDRAGUARD CREAM TP SCH ×2 (00:46→13:01)
[2020-12-05] MEDS: PIPERACILLIN/TAZOBACTAM 4.5 GM in DEXTROSE 5% 100 ML IV SCH ×5 (00:46→23:03)
[2020-12-05] MEDS: BLOOD GLUCOSE MONITORING 1 DEV DEV MC SCH ×5 (00:46→23:17)
--- NOTE | 2020-12-05 03:45 | NUR ---
X1 LARGE LIQUID BM NOTED. LINEN CHANGED, BATH GIVEN. TURNED AND REPOSITIONED. WILL CONTINUE TO OBSERVE
--- NOTE | 2020-12-05 04:45 | NUR ---
ORAL CARE GIVEN TO PT. PT OPENS EYES TO NAME. WILL CONTINUE TO MONITOR.
[2020-12-05] MEDS: hydrALAZINE 25 MG TAB PO SCH ×3 (04:57→20:23)
[2020-12-05 06:06] LABS: BASOPHILS % (AUTO) 0.1 % (0.0-2.0); EOSINOPHILS % (AUTO) 0.3 % (0.0-4.0); HEMATOCRIT 34.2 % (36-52); HEMOGLOBIN 11.6 g/dL (12.0-18.0); LYMPHOCYTES # (AUTO) 0.3 K/uL (2.0-11.5); LYMPHOCYTES % (AUTO) 2.5 % (20.5-51.1); MEAN CORPUSCULAR HEMOGLOBIN 32 pg (27-31); MEAN CORPUSCULAR HGB CONC 34 g/dL (33-37); MEAN CORPUSCULAR VOLUME 94.6 fL (80-94); MONOCYTES # (AUTO) 0.2 K/uL (0.8-1.0); MONOCYTES % (AUTO) 1.8 % (1.7-9.3); NEUTROPHILS # (AUTO) 11.8 K/uL (1.8-7.7); NEUTROPHILS % (AUTO) 95.3 % (42.2-75.2); PLATELET COUNT (AUTO) 259 K/uL (140-450); RED BLOOD CELL COUNT(AUTO) 3.61 MIL/uL (4.20-6.10); RED CELL DISTRIBUTION WIDTH 15.1 % (11.6-13.7); WHITE BLOOD COUNT (AUTO) 12.4 K/uL (4.8-10.8)
[2020-12-05 06:35] LABS: PHOSPHORUS 3.5 mg/dL (2.5-4.9)
[2020-12-05] MEDS ORDERED: AMIODARONE 450 MG/9 ML VIAL IV ONE (06:40)
[2020-12-05] MEDS: AMIODARONE 450 MG in DEXTROSE 5% 250 ML IV SCH ×2 (07:01→22:13)
--- NOTE | 2020-12-05 07:20 | NUR ---
RECEIVED REPORT FROM ELECTRONICS MECHANIC APPRENTICE RN; AO TO NAME, TRACKS WITH EYES, MAKING INCOMPREHENSIBLE SOUNDS AND AROUSABLE TO TOUCH. BILATERAL SOFT WRIST RESTRAINTS IN PLACE, RELEASED REAPPLIED PER PROTOCOL, NO S/S OF OF INJURY OR CIRCULATION LOSS. SR ON MONITOR. 10L OXYMIZER. NGT TO L NARES, TO INTERMITTENT SUCTION. ACTIVE BOWEL SOUNDS, S/P ABD SURGERY, REPAIR OF PERFORATED PEPTIC ULCER WITH RODERICK. ERAZO CATH DRAINING YELLOW URINE TO GRAVITY. SKIN WARM DRY PINK, RODERICK AND ABD DRESSING OVER SURGICAL SITE. DALE DRAIN ON LUQ. OCCASIONAL BABYSITTER, PULSE OXIMETER, AND SAFETY MEASURES IN PLACE. BED LOCKED, BED IN LOWEST POSITION, HEAD OF BED AT 30 DEGREES. WILL CONTINUE TO MONITOR.
[2020-12-05 07:30] LABS: ALBUMIN 1.7 g/dL (3.4-5.0); ANION GAP 13.7 (8-16); ASPARTATE AMINOTRANSFERASE 38 U/L (15-37); CARBON DIOXIDE 27.9 mmol/L (21-32); CHLORIDE 103 mmol/L (98-107); CREATININE 0.8 mg/dL (0.6-1.3); GLUCOSE 103 mg/dL (74-106); LACTATE DEHYDROGENASE 309 U/L (85-227); POTASSIUM 3.6 mmol/L (3.5-5.1); SODIUM SERUM 141 mmol/L (136-145); TOTAL BILIRUBIN 0.6 mg/dL (0.0-1.0); UREA NITROGEN, BLOOD 33 mg/dL (7-18)
--- NOTE | 2020-12-05 07:30 | NUR ---
REPORT GIVEN TO DAY SHIFT FOR CONTINUITY OF CARE.
--- NOTE | 2020-12-05 07:40 | NUR ---
DR. XENIA AMANDA. UPDATED ON PATIENT STATUS AND CONDITION. AWARE PATIENT HAS Ca 8.1. NO ORDERS NEEDED. WILL CONTINUE TO MONITOR.
--- NOTE | 2020-12-05 08:50 | NUR ---
DR. ALEXA AMANDA. UPDATED ON PATIENT STATUS AND CONDITION. AWARE OF CT SCAN RESULTS. ORDERS PLACED. WILL CONTINUE TO MONITOR.
[2020-12-05] MEDS ORDERED: ENOXAPARIN 40 MG/0.4 ML SYR SUBQ SCH ×2 (09:00)
[2020-12-05] MEDS: FUROSEMIDE 40 MG/4 ML VIAL IVP SCH ×2 (09:06→17:23)
[2020-12-05] MEDS: PANTOPRAZOLE 40 MG INJ VIAL IVP SCH (09:06)
[2020-12-05] MEDS: GABAPENTIN 300 MG CAP PO SCH ×3 (09:07→17:23)
[2020-12-05] MEDS: VITAMIN D 400 IU TAB PO SCH (09:07)
[2020-12-05] MEDS: QUEtiapine FUMARATE 25 MG TAB PO SCH ×3 (09:08→17:23)
[2020-12-05] MEDS: ASCORBIC ACID 500 MG TAB PO SCH (09:08)
[2020-12-05] MEDS: buPROPion 100 MG TAB PO SCH (09:08)
[2020-12-05] MEDS: ZINC SULF 220 MG CAP PO SCH ×2 (09:08→20:23)
[2020-12-05] MEDS: ENOXAPARIN 30 MG/0.3 ML SYR SUBQ SCH (09:09)
[2020-12-05] MEDS: SERTRALINE 50 MG TAB PO SCH ×2 (09:09→20:22)
[2020-12-05] MEDS: VANCOMYCIN 1,000 MG in DEXTROSE 5% 250 ML IV SCH ×3 (09:14→20:24)
--- NOTE | 2020-12-05 09:15 | NUR ---
TURNED OFF SUCTION. CHECKED RESIDUAL, 0 ML. ADMINISTERED SCHEDULED AM MEDICATIONS. ORAL CARE, ERAZO CARE, HYGIENE CARE, AND CHG BATH PROVIDED. WILL WAIT BEFORE RECONNECTING SUCTION. WILL CONTINUE TO MONITOR.
--- NOTE | 2020-12-05 10:15 | NUR ---
DR. NELSON AMANDA. UPDATED ON PATIENT STATUS AND CONDITION. AWARE OF Ca 8.1. WILL CONTINUE TO MONITOR.
[2020-12-05] MEDS: INSULIN LISPRO SLIDING SCALE 100 UNITS/ML VIAL SUBQ PRN (12:32)
--- NOTE | 2020-12-05 12:35 | NUR ---
CHECKED BLOOD SUGAR, 173, COVERED WITH 2 UNITS PER SLIDING SCALE. WILL CONTINUE TO MONITOR.
--- NOTE | 2020-12-05 13:00 | NUR ---
ADMINISTERED SCHEDULED AFTERNOON MEDICATION. NO SIGNS OF DISTRESS. DENIES PAIN. WILL CONTINUE TO MONITOR.
[2020-12-05] MEDS: GAUZE TP SCH (13:01)
--- NOTE | 2020-12-05 13:50 | NUR ---
DR. BRYSON AMANDA. UPDATED ON PATIENT STATUS AND CONDITION. AWARE PATIENT IS STILL ON AMIODARONE DRIP. WILL CONTINUE TO MONITOR.
--- NOTE | 2020-12-05 14:05 | NUR ---
CHECKED ON PATIENT. NO SIGNS OF DISTRESS. DENIES PAIN.
--- NOTE | 2020-12-05 15:03 | NUR ---
CHECKED ON PATIENT. NO SIGN OF PAIN OR DISTRESS. WILL CONTINUE TO MONITOR.
--- NOTE | 2020-12-05 17:20 | NUR ---
DR.OH AMANDA. UPDATED ON PATIENT STATUS AND CONDITION. REMOVED 2 RODERICK AND PACKED. ORDERS PLACED. WILL CONTINUE TO MONITOR.
--- NOTE | 2020-12-05 18:50 | NUR ---
CHECKED ON PATIENT. NO SIGN OF PAIN OR DISTRESS. WILL CONTINUE TO MONITOR.
--- NOTE | 2020-12-05 19:09 | NUR ---
ENDORSED TO ASSOCIATE PROFESSOR OF THEOLOGY NURSE, MIREYA RENE, FOR CONTINUITY OF CARE.
--- NOTE | 2020-12-05 19:10 | NUR ---
RECIEVED BEDSIDE ENDORSEMENT FROM DAY SHIFT RN , PT LYING IN BED RESTING, A&0X2 W/ PERIODS OF SLIGHT CONFUSION, AFEBRILE, VSS, SR ON MONITOR, ON OXIMIZER 7 L/MIN, ABD SOFT AND NON TENDER TO TOUCH, SKIN WARM DRY AND NON INTACT/SEE WOUND ASSESSMENT, RIJ TL INFUSING NS TKO, TPN @ 50MLS/HR AND AMIODARONE @ 0.5MG/MIN, FC IN PLACE DRAINING VIA GRAVITY, RECTAL TUBE IN PLACE DRAINING VIA GRAVITY, NGT TO LEFT NARE CONTINUOUS SUCTIONING HELD D/T MEDICATION ADMINISTERATION, PT SHOWING NO SIGNS OF ACUTE DISTRESS, SAFETY MEASURES IN PLACE, WILL CONTINUE WITH CURRENT POC
[2020-12-05] MEDS: MULTIVITAMIN-12 10 ML in DEXTROSE 50% 600 ML, AMINO ACIDS 8.5% 500 ML, FAT EMULSION 20%... IV SCH ×4 (19:33)
--- NOTE | 2020-12-05 19:34 | NUR ---
ADMINISTERED TPN FEEDING PER MD ORDERS
[2020-12-05] MEDS: ATORVASTATIN 20 MG TAB PO SCH (20:24)
--- NOTE | 2020-12-05 20:48 | NUR ---
ADMINISTERED 2100H MEDICATIONS PER MD ORDERS
--- NOTE | 2020-12-05 22:26 | NUR ---
PT RESTING COMFORTABLY, NO SIGNS OF ACUTE DISTRESS
--- NOTE | 2020-12-05 23:17 | NUR ---
ADMINISTERED 0000H MEDICATION PER MD ORDERS, BLOOG GLUCOSE 134, NO NEED FOR INSULIN COVERAGE
[2020-12-06] VITALS (24 sets, daily range): BP systolic 95–139; BP diastolic 50–86
[2020-12-06] MEDS: HYDRAGUARD CREAM TP SCH ×2 (00:49→13:42)
--- NOTE | 2020-12-06 01:52 | NUR ---
MADE ROUNDS ON PT, NO SIGNS OF ACUTE DISTRESS, SAFETY MEASURES IN PLACE
--- NOTE | 2020-12-06 04:25 | NUR ---
MADE ROUNDS ON PT, OFFERED MORNING CARE AND CHANGE OF LINENS, PT REFUSED, SAFETY MEASURES IN PLACE, WILL CONTINUE WITH CURRENT POC
[2020-12-06] MEDS: PIPERACILLIN/TAZOBACTAM 4.5 GM in DEXTROSE 5% 100 ML IV SCH ×4 (05:17→23:32)
[2020-12-06] MEDS: hydrALAZINE 25 MG TAB PO SCH ×3 (05:17→20:22)
[2020-12-06] MEDS: BLOOD GLUCOSE MONITORING 1 DEV DEV MC SCH ×4 (05:31→23:33)
--- NOTE | 2020-12-06 05:31 | NUR ---
ADMINISTERED 0500H AND 0600H MEDICATIONS PER MD ORDERS, BLOOD GLUCOSE 120, NO NEED FOR INSULIN COVERAGE
[2020-12-06 06:12] LABS: ALBUMIN 1.6 g/dL (3.4-5.0); ANION GAP 7.7 (8-16); ASPARTATE AMINOTRANSFERASE 36 U/L (15-37); CARBON DIOXIDE 32.5 mmol/L (21-32); CHLORIDE 103 mmol/L (98-107); CREATININE 0.8 mg/dL (0.6-1.3); GLUCOSE 122 mg/dL (74-106); LACTATE DEHYDROGENASE 268 U/L (85-227); POTASSIUM 3.2 mmol/L (3.5-5.1); SODIUM SERUM 140 mmol/L (136-145); TOTAL BILIRUBIN 0.4 mg/dL (0.0-1.0); UREA NITROGEN, BLOOD 28 mg/dL (7-18)
[2020-12-06] MEDS: POTASSIUM CHLORIDE 20% 40 MEQ/15 ML UDC GT PRN (06:31)
--- NOTE | 2020-12-06 06:38 | NUR ---
POTASSIUM 3.2, ADMINISTERED K CHLORIDE 40MEQ 15ML
[2020-12-06 06:47] LABS: PHOSPHORUS 3.4 mg/dL (2.5-4.9)
--- NOTE | 2020-12-06 07:15 | NUR ---
RECEIVED REPORT FROM PROFESSOR OF BIOSTATISTICS RN; AOX2-3. BILATERAL SOFT WRIST RESTRAINTS IN PLACE, RELEASED REAPPLIED PER PROTOCOL, NO S/S OF OF INJURY OR CIRCULATION LOSS. SR ON MONITOR. 7L OXYMIZER. NGT TO L NARES, TO INTERMITTENT SUCTION. ACTIVE BOWEL SOUNDS, S/P ABD SURGERY, REPAIR OF PERFORATED PEPTIC ULCER WITH RODERICK. IV CLEAN, DRY, AND INTACT, ON RIJ, INFUSING AMIODARONE AT 0.5 MG/MIN AND NS 0.9 AT 5 ML/HR TKO. ERAZO CATH DRAINING YELLOW URINE TO GRAVITY, RECTAL TUBE IN PLACE AND DRAINING. SKIN WARM DRY PINK, RODERICK AND ABD DRESSING OVER SURGICAL SITE. DALE DRAIN ON LUQ. 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 BED LOCKED, BED IN LOWEST POSITION, HEAD OF BED AT 30 DEGREES. WILL CONTINUE TO MONITOR.
--- NOTE | 2020-12-06 07:23 | NUR ---
ENDORSED TO DAY SHIFT RN FOR CONTINUITY OF CARE
--- NOTE | 2020-12-06 07:30 | NUR ---
DR. XENIA AMANDA. UPDATED ON PATIENT STATUS AND CONDITION. AWARE ON 7L OXIMIZER. ORDERS PLACED. WILL CONTINUE TO MONITOR.
[2020-12-06] MEDS: VANCOMYCIN 1,000 MG in DEXTROSE 5% 250 ML IV SCH ×2 (08:32→20:22)
[2020-12-06] MEDS: FUROSEMIDE 40 MG/4 ML VIAL IVP SCH ×2 (08:32→17:08)
[2020-12-06] MEDS: GABAPENTIN 300 MG CAP PO SCH ×3 (08:33→17:08)
[2020-12-06] MEDS: PANTOPRAZOLE 40 MG INJ VIAL IVP SCH (08:33)
[2020-12-06] MEDS: ASCORBIC ACID 500 MG TAB PO SCH (08:33)
[2020-12-06] MEDS: QUEtiapine FUMARATE 25 MG TAB PO SCH ×3 (08:33→17:08)
[2020-12-06] MEDS: VITAMIN D 400 IU TAB PO SCH (08:33)
[2020-12-06] MEDS: buPROPion 100 MG TAB PO SCH (08:34)
[2020-12-06] MEDS: SERTRALINE 50 MG TAB PO SCH ×2 (08:34→20:22)
[2020-12-06] MEDS: ZINC SULF 220 MG CAP PO SCH ×2 (08:34→20:22)
[2020-12-06] MEDS: ENOXAPARIN 30 MG/0.3 ML SYR SUBQ SCH (08:35)
--- NOTE | 2020-12-06 08:35 | NUR ---
ADMINISTERED SCHEDULED AM MEDICATION. PROVIDED ERAZO CARE, HYGIENE CARE, CHG BATH, AND ORAL CARE. PATIENT HAD 1 BM, BROWN, LOOSE. CHANGED LINEN AND GOWN. REINSERTED RECTAL TUBE WITH PATIENT PERMISSION. WILL CONTINUE TO MONITOR.
--- NOTE | 2020-12-06 08:40 | NUR ---
DR. ALEXA AMANDA. UPDATED ON PATIENT STATUS AND CONDITION. AWARE PATIENT IS MORE ALERT AND ORIENTED. WILL CONTINUE TO MONITOR.
[2020-12-06] MEDS ORDERED: POTASSIUM CHLORIDE 10 MEQ TABER PO SCH (10:31)
[2020-12-06] MEDS ORDERED: POTASSIUM CHLORIDE 20% 40 MEQ/15 ML UDC GT SCH (10:32)
--- NOTE | 2020-12-06 10:32 | NUR ---
HELP PO POTASSIUM REPLACEMENT. LIFE SUPPORT TECHNICIAN ALREADY COVERED FOR POTASSIUM 3.2 AT 0631. WILL CONTINUE TO MONITOR.
--- NOTE | 2020-12-06 11:15 | NUR ---
DR. JONA AMANDA. UPDATED ON PATIENT STATUS AND CONDITION. AWARE PATIENT IS MORE ALERT AND ORIENTED. WILL CONTINUE TO MONITOR.
[2020-12-06 11:54] LABS: BASOPHILS % (AUTO) 0.3 % (0.0-2.0); EOSINOPHILS # (AUTO) 0.1 K/uL (0-0.4); EOSINOPHILS % (AUTO) 0.6 % (0.0-4.0); HEMATOCRIT 35.5 % (36-52); HEMOGLOBIN 11.9 g/dL (12.0-18.0); LYMPHOCYTES # (AUTO) 0.4 K/uL (2.0-11.5); LYMPHOCYTES % (AUTO) 2.8 % (20.5-51.1); MEAN CORPUSCULAR HEMOGLOBIN 32 pg (27-31); MEAN CORPUSCULAR HGB CONC 33 g/dL (33-37); MEAN CORPUSCULAR VOLUME 95.4 fL (80-94); MONOCYTES # (AUTO) 0.3 K/uL (0.8-1.0); MONOCYTES % (AUTO) 1.9 % (1.7-9.3); NEUTROPHILS % (AUTO) 94.4 % (42.2-75.2); PLATELET COUNT (AUTO) 290 K/uL (140-450); RED BLOOD CELL COUNT(AUTO) 3.72 MIL/uL (4.20-6.10); WHITE BLOOD COUNT (AUTO) 13.8 K/uL (4.8-10.8)
[2020-12-06 11:58] LABS: MAGNESIUM 2.1 mg/dL (1.8-2.4); PHOSPHORUS 3.4 mg/dL (2.5-4.9)
[2020-12-06] MEDS ORDERED: FUROSEMIDE 40 MG/4 ML VIAL IVP SCH (12:04)
--- NOTE | 2020-12-06 13:20 | NUR ---
CHECKED BLOOD SUGAR, 128, NO COVERAGE NEEDED. ADMINISTER SCHEDULED AFTERNOON MEDICATIONS. WILL CONTINUE TO MONITOR.
[2020-12-06] MEDS: GAUZE TP SCH (13:41)
[2020-12-06] MEDS: AMIODARONE 450 MG in DEXTROSE 5% 250 ML IV SCH (15:10)
--- NOTE | 2020-12-06 15:15 | NUR ---
DR. JESSICA AMANDA. UPDATED ON PATIENT STATUS AND CONDITION. AWARE PATIENT IS MORE ALERT AND AWAKE. WILL CONTINUE TO MONITOR. Addendum: 12/06/20 at 1631 by Ty Almaraz RN RN IGNORE ABOVE NOTE
--- NOTE | 2020-12-06 15:40 | NUR ---
DR. BRYSON AMANDA. UPDATED ON PATIENT STATUS AND CONDITION. AWARE PATIENT IS STILL ON AMIODARONE DRIP. WILL CONTINUE TO MONITOR. Addendum: 12/06/20 at 1631 by Ty Almaraz RN RN IGNORE ABOVE NOTE
--- NOTE | 2020-12-06 16:00 | NUR ---
DR. BRYSON AMANDA. UPDATED ON PATIENT STATUS AND CONDITION. AWARE PATIENT IS STILL ON AMIODARONE DRIP. WILL CONTINUE TO MONITOR.
--- NOTE | 2020-12-06 16:15 | NUR ---
DR. JESSICA AMANDA. UPDATED ON PATIENT STATUS AND CONDITION. AWARE PATIENT IS MORE ALERT AND AWAKE. WILL CONTINUE TO MONITOR.
--- NOTE | 2020-12-06 17:17 | NUR ---
CHECKED ON PATIENT. NO SIGNS OF DISTRESS. DENIES PAIN. HOLD SUCTION. ADMINISTERED EVENING MEDICATIONS. FLUSHED AFTER. WILL CONTINUE TO MONITOR.
--- NOTE | 2020-12-06 18:00 | NUR ---
CHECKED BLOOD SUGAR, 138, NO COVERAGE NEEDED. WILL CONTINUE TO MONITOR.
--- NOTE | 2020-12-06 19:12 | NUR ---
ENDORSED TO PARIS RENE FOR CONTINUITY OF CARE.
--- NOTE | 2020-12-06 19:20 | NUR ---
RECIEVED BEDSIDE ENDORSEMENT FROM DAY SHIFT RN, PT LYING IN BED WATCHING TV, A&OX4, ABLE TO MAKE NEEDS KNOWN AND FOLLOW SIMPLE COMMANDS, AFEBRILE, VS WITHIN NORMAL LIMIT, SR ON MONITOR, ON OXIMIZER 5 L/MIN, ABD SOFT AND NON TENDER TO TOUCH, FLACC 0, SKIN WARM DRY AND NON INTACT/SEE WOUND ASSESSMENT FOR S/P SURGICAL SITE, NGT TO LEFT NARE ON INTERMITENT SUCTIONING, RIJ TL INFUSING AMIODARONE @ 0.5MG/MIN, NS TKO AND TPN, FC IN PLACE DRAINING VIA GRAVITY, RECTAL TUBE DRAINING VIA GRAVITY, NO SIGNS OF ACUTE DISTRESS, SAFEY MEASURES IN PLACE, WILL CONTINUE WITH CURRENT POC
[2020-12-06] MEDS: MULTIVITAMIN-12 10 ML in DEXTROSE 50% 600 ML, AMINO ACIDS 8.5% 500 ML, FAT EMULSION 20%... IV SCH ×4 (19:48)
--- NOTE | 2020-12-06 19:49 | NUR ---
ADMINISTERED TPN PER MD ORDERS
[2020-12-06] MEDS: ATORVASTATIN 20 MG TAB PO SCH (20:22)
--- NOTE | 2020-12-06 20:23 | NUR ---
ADMINISTERED 2100H MEDICATIONS PER MD ORDERS
--- NOTE | 2020-12-06 20:45 | NUR ---
PTS , NURIA, CALLED AND WAS UPDATED ON PT CONDITION
[2020-12-06] MEDS: MORPHINE SULFATE 2 MG/ML SYR IVP PRN (20:50)
--- NOTE | 2020-12-06 20:54 | NUR ---
PT COMPLAINED OF BACK PAIN 2 OF 10 PAIN SCALE, ADMINISTERED MORPHINE 2MG PER MD ORDERS
--- NOTE | 2020-12-06 23:33 | NUR ---
ADMINISTERED 0000H MEDICATION PER MD ORDERS, BLOOG GLUCOSE 115, NO INSULIN COVERAGE NEEDED
[2020-12-07] VITALS (22 sets, daily range): BP systolic 97–129; BP diastolic 43–75
[2020-12-07] MEDS: HYDRAGUARD CREAM TP SCH ×2 (00:23→13:07)
--- NOTE | 2020-12-07 02:32 | NUR ---
ROUNDED ON PT, MORNING CARE PROVIDED, REPOSITIONED PT, NO SIGNS OF ACUTE DISTRESS
--- NOTE | 2020-12-07 05:05 | NUR ---
ADMINISTERED 0500H AND 0600H MEDICATIONS PER MD ORDERS
[2020-12-07] MEDS: PIPERACILLIN/TAZOBACTAM 4.5 GM in DEXTROSE 5% 100 ML IV SCH ×3 (05:19→17:43)
[2020-12-07] MEDS: hydrALAZINE 25 MG TAB PO SCH ×3 (05:19→20:10)
--- NOTE | 2020-12-07 05:20 | NUR ---
TRANSFERED PT TO ICU BED 102
[2020-12-07 06:07] LABS: BASOPHILS % (AUTO) 0.1 % (0.0-2.0); EOSINOPHILS # (AUTO) 0.1 K/uL (0-0.4); EOSINOPHILS % (AUTO) 0.5 % (0.0-4.0); HEMATOCRIT 37.2 % (36-52); HEMOGLOBIN 12.3 g/dL (12.0-18.0); LYMPHOCYTES # (AUTO) 0.4 K/uL (2.0-11.5); LYMPHOCYTES % (AUTO) 2.2 % (20.5-51.1); MEAN CORPUSCULAR HEMOGLOBIN 31 pg (27-31); MEAN CORPUSCULAR HGB CONC 33 g/dL (33-37); MEAN CORPUSCULAR VOLUME 94.7 fL (80-94); MONOCYTES # (AUTO) 0.3 K/uL (0.8-1.0); MONOCYTES % (AUTO) 1.4 % (1.7-9.3); NEUTROPHILS # (AUTO) 18.3 K/uL (1.8-7.7); NEUTROPHILS % (AUTO) 95.8 % (42.2-75.2); PLATELET COUNT (AUTO) 398 K/uL (140-450); RED BLOOD CELL COUNT(AUTO) 3.93 MIL/uL (4.20-6.10); RED CELL DISTRIBUTION WIDTH 14.9 % (11.6-13.7); WHITE BLOOD COUNT (AUTO) 19.1 K/uL (4.8-10.8)
[2020-12-07 06:11] LABS: ANION GAP 10.4 (8-16); CARBON DIOXIDE 30.1 mmol/L (21-32); CHLORIDE 100 mmol/L (98-107); CREATININE 0.8 mg/dL (0.6-1.3); GLUCOSE 121 mg/dL (74-106); POTASSIUM 3.5 mmol/L (3.5-5.1); SODIUM SERUM 137 mmol/L (136-145); UREA NITROGEN, BLOOD 28 mg/dL (7-18)
[2020-12-07] MEDS: BLOOD GLUCOSE MONITORING 1 DEV DEV MC SCH ×3 (06:25→18:00)
--- NOTE | 2020-12-07 06:26 | NUR ---
BLOOD GLUCOSE 141, NO INSULIN COVERAGE NEEDED, PT COMPLAIN OF BACK PAIN 2 OF 10 PAIN SCALE, ADMINISTERED MORPHINE PER MD ORDERS
[2020-12-07] MEDS: MORPHINE SULFATE 2 MG/ML SYR IVP PRN ×3 (06:37→20:17)
--- NOTE | 2020-12-07 07:20 | NUR ---
ENDORSED TO DAY SHIFT RN FOR CONTINUITY OF CARE
[2020-12-07] MEDS: FUROSEMIDE 40 MG/4 ML VIAL IVP SCH ×2 (09:01→17:42)
[2020-12-07] MEDS: PANTOPRAZOLE 40 MG INJ VIAL IVP SCH (09:02)
[2020-12-07] MEDS: VITAMIN D 400 IU TAB PO SCH (09:03)
[2020-12-07] MEDS: GABAPENTIN 300 MG CAP PO SCH ×3 (09:04→17:42)
[2020-12-07] MEDS: ASCORBIC ACID 500 MG TAB PO SCH (09:04)
[2020-12-07] MEDS: ENOXAPARIN 30 MG/0.3 ML SYR SUBQ SCH (09:07)
[2020-12-07] MEDS: buPROPion 100 MG TAB PO SCH (09:09)
[2020-12-07] MEDS: POTASSIUM CHLORIDE 20% 40 MEQ/15 ML UDC GT PRN (09:10)
[2020-12-07] MEDS: QUEtiapine FUMARATE 25 MG TAB PO SCH ×3 (09:10→17:42)
[2020-12-07] MEDS: VANCOMYCIN HCL 1.25 GM in DEXTROSE 5% 250 ML IV SCH ×2 (09:12→20:24)
[2020-12-07] MEDS: SERTRALINE 50 MG TAB PO SCH ×2 (09:14→20:15)
[2020-12-07] MEDS: AMIODARONE 200 MG TAB PO SCH ×2 (10:05→20:14)
--- NOTE | 2020-12-07 10:05 | NUR ---
CORRECTION: ABDOMINAL 15 RODERICK REMAINS.
--- NOTE | 2020-12-07 10:30 | NUR ---
SEEN BY DR. GUZMÁN AT BEDSIDE, ORDER RECEIVED D/C AMIODARONE IV DRIP . START PO AMIODARONE .
--- NOTE | 2020-12-07 11:00 | NUR ---
VISIT BY HIS AT BEDSIDE,
--- NOTE | 2020-12-07 13:00 | NUR ---
BLOOD GLUCOSE 122.
[2020-12-07] MEDS: GAUZE TP SCH (13:07)
--- NOTE | 2020-12-07 13:30 | NUR ---
SEENBY DR. WELLS AT BEDSIDE, ORDER RECEIVED,
--- NOTE | 2020-12-07 14:20 | NUR ---
C/O PAIN ON HIS BACK ,MEDICATION GIVEN ORDERED.
--- NOTE | 2020-12-07 14:30 | NUR ---
VISIT BY HIS AT BEDSIDE.
--- NOTE | 2020-12-07 15:05 | NUR ---
WOUND CARE RE-EVALUATION NOTE: WOUND ASSESSMENT DONE WITH PRIMARY RN AT BED SIDE, PER PRIMARY RN DR. TENORIO REMOVED SOME RODERICK. PT. LATEST ALBUMIN LEVEL IS 1.6. PT IS ON TPN AND NGT FOR SUCTION WHICH IS NOT CONNECTED AT THIS TIME. PT. IS ALERT ORIENTED, ABLE TO FOLLOW DIRECTIONS TO TURN AND MOVE HIMSELF UP. PT. VERBALIZES NEEDS POC DISCUSSED WITH PT AND PRIMARY RN. WILL CONTINUE DRESSING CHANGE DAILY. -MID ABDOMINAL SURGICAL WOUND WITH [address] ,SECURED, NO S/S OF WOUND DEHISCENCE. WOUND MOIST, SEEPING OUT SMALL AMOUNT SEROUS DRAINAGE, NO ODOR, TEE WOUND SKIN DRY AND INTACT. -RLQ ABDOMEN DALE DRAIN IN PLACE SECURED WITH SUTURES AND DRAIN WITH MODERATE AMOUNT SEROSANGUINEOUS. ABDOMINAL WALL NON-DISTENTION -DRY ABDOMEN SKIN IMPROVEMENT NOTICE. PENIS AND SCROTAL EDEMA IMPROVED SKIN THIN AND INTACT.
--- NOTE | 2020-12-07 18:25 | NUR ---
SEEN BY DR TENORIO AT BED SIDE , HE LOOK AT RESULT OF CT SCAN OF ABDOMEN AND PELVIS AND REMOVED THE NG TUBE OUT BUT NO ORDER AT THE TIME.
--- NOTE | 2020-12-07 19:25 | NUR ---
REPORT GIVE TO PARIS RENE,
--- NOTE | 2020-12-07 19:30 | NUR ---
RECIEVED BEDSIDE ENDORSEMENT FROM DAY SHIFT RN, PT LYING IN BED WATCHING TV, A&OX4, ABLE TO MAKE NEEDS KNOWN AND FOLLOW SIMPLE COMMANDS, AFEBRILE, VS WITHIN NORMAL LIMIT, SR ON MONITOR, ON OXIMIZER 2 L/MIN, ABD SOFT AND NON TENDER TO TOUCH, FLACC 0, SKIN WARM DRY AND NON INTACT/SEE WOUND ASSESSMENT FOR S/P SURGICAL SITE, RIJ TL INFUSING NS TKO AND TPN, FC IN PLACE DRAINING VIA GRAVITY, RECTAL TUBE DRAINING VIA GRAVITY, NO SIGNS OF ACUTE DISTRESS, SAFEY MEASURES IN PLACE, WILL CONTINUE WITH CURRENT POC
[2020-12-07] MEDS: ATORVASTATIN 20 MG TAB PO SCH (20:11)
[2020-12-07] MEDS: MULTIVITAMIN-12 10 ML in DEXTROSE 50% 600 ML, AMINO ACIDS 8.5% 500 ML, FAT EMULSION 20%... IV SCH ×4 (20:24)
--- NOTE | 2020-12-07 20:34 | NUR ---
ADMINISTERED 2000H TPN AND 2100H MEDICATIONS PER MD ORDERS
[2020-12-08] VITALS (9 sets, daily range): BP systolic 92–128; BP diastolic 48–76
[2020-12-08] MEDS: PIPERACILLIN/TAZOBACTAM 4.5 GM in DEXTROSE 5% 100 ML IV SCH ×4 (00:07→17:26)
[2020-12-08] MEDS: BLOOD GLUCOSE MONITORING 1 DEV DEV MC SCH ×3 (00:12→12:05)
[2020-12-08] MEDS: HYDRAGUARD CREAM TP SCH ×2 (00:14→12:56)
--- NOTE | 2020-12-08 00:24 | NUR ---
ADMINISTERED 0000H MEDICATION PER MD ORDERS, BLOOD GLUCOSE 118, NO NEED FOR INSULIN COVERAGE
[2020-12-08] MEDS: MORPHINE SULFATE 2 MG/ML SYR IVP PRN (01:02)
--- NOTE | 2020-12-08 02:48 | NUR ---
ASSISTED PT W/ DRINKING WATER, PT CURRENTLY WATCHING TV, NO SIGNS OF ACUTE DISTRESS
--- NOTE | 2020-12-08 04:05 | NUR ---
ENDORSED TO PT CARE TO GRAIN MANAGER
--- NOTE | 2020-12-08 04:16 | NUR ---
TRANSFERE PT TO [facility]
--- NOTE | 2020-12-08 04:30 | NUR ---
PT TRANSFERRED TO ROOM 124 A. PT IS AOX34 WITH 3 LITERS OXYMIZER ALSO HAS 15 RODERICK TO ABDOMEN ANS J P DRAIN NO DRAINAGE NOTED. HE ALSO HAS A RECTAL BAG AND A ERAZO CATHETER. HE HAS A TRIPLE LUMEN IJ ON THE RIGHT SIDE RUNNING TPN ORDERED AND IV FLUIDS TRO KVO. V/S TAKEN AND IS STABLE. ALL ORDERED PRECAUTIONS IN PLACE.
[2020-12-08] MEDS: MORPHINE SULFATE 4 MG/ML SYR IV PRN ×2 (04:59→09:27)
[2020-12-08] MEDS: hydrALAZINE 25 MG TAB PO SCH ×3 (05:10→21:00)
--- NOTE | 2020-12-08 05:30 | NUR ---
PT GIVEN ORDERED MORPHINE FOR SEVERE PAIN IN BACK.
[2020-12-08 06:13] LABS: BASOPHILS # (AUTO) 0.2 K/uL (0.00-0.22); BASOPHILS % (AUTO) 0.9 % (0.0-2.0); EOSINOPHILS # (AUTO) 0.1 K/uL (0-0.4); EOSINOPHILS % (AUTO) 0.7 % (0.0-4.0); HEMATOCRIT 35.1 % (36-52); HEMOGLOBIN 11.8 g/dL (12.0-18.0); LYMPHOCYTES # (AUTO) 0.4 K/uL (2.0-11.5); LYMPHOCYTES % (AUTO) 1.9 % (20.5-51.1); MEAN CORPUSCULAR HEMOGLOBIN 32 pg (27-31); MEAN CORPUSCULAR HGB CONC 34 g/dL (33-37); MEAN CORPUSCULAR VOLUME 93.9 fL (80-94); MONOCYTES # (AUTO) 0.3 K/uL (0.8-1.0); MONOCYTES % (AUTO) 1.5 % (1.7-9.3); NEUTROPHILS # (AUTO) 20.2 K/uL (1.8-7.7); PLATELET COUNT (AUTO) 426 K/uL (140-450); RED BLOOD CELL COUNT(AUTO) 3.74 MIL/uL (4.20-6.10); RED CELL DISTRIBUTION WIDTH 14.4 % (11.6-13.7); WHITE BLOOD COUNT (AUTO) 21.3 K/uL (4.8-10.8)
[2020-12-08] MEDS: ONDANSETRON 4 MG/2 ML VIAL IV PRN (06:14)
[2020-12-08 06:28] LABS: PHOSPHORUS 3.7 mg/dL (2.5-4.9)
--- NOTE | 2020-12-08 06:30 | NUR ---
PT GIVEN ORDERED APRESOLINE, FINGERSTICK IS 139 NO COVERAGE NEEDED.
[2020-12-08 06:36] LABS: ANION GAP 9.8 (8-16); CARBON DIOXIDE 29.5 mmol/L (21-32); CHLORIDE 99 mmol/L (98-107); CREATININE 0.8 mg/dL (0.6-1.3); GLUCOSE 125 mg/dL (74-106); POTASSIUM 4.3 mmol/L (3.5-5.1); SODIUM SERUM 134 mmol/L (136-145); UREA NITROGEN, BLOOD 24 mg/dL (7-18)
--- NOTE | 2020-12-08 07:30 | NUR ---
RECEIVED REPORT FROM DAY SHIFT NURSE. AOX2-3, WITH EPISODES OF DISORIENTATION, ABLE TO MAKE NEEDS KNOWN, NONAMBULATORY, ON BED REST. NO SOB ON 4L OXYMIZER. WITH RIJ CENTRAL TRIPLE LUMEN RUNNING TPPN AT 50CC/HR AND NS AT TKO. ON CLEAR LIQUID DIET. DALE DRAIN INTACT, SCANT OUTPUT. S/P PERFORATED BOWEL REPAIR 11/30, SITH 15 RODERICK, DRESSING CLEAN AND INTACT. ERAZO AND RECTAL TUBE INTACT, DRAINING WELL. SAFETY PRECAUTIONS IN PLACE. CALL LIGHT WITHIN REACH. WILL CONTINUE TO MONITOR
[2020-12-08] MEDS: buPROPion 100 MG TAB PO SCH (08:57)
[2020-12-08] MEDS: AMIODARONE 200 MG TAB PO SCH ×2 (08:59→22:46)
[2020-12-08] MEDS: SERTRALINE 50 MG TAB PO SCH ×2 (08:59→22:48)
[2020-12-08] MEDS: GABAPENTIN 300 MG CAP PO SCH ×3 (09:00→17:11)
[2020-12-08] MEDS: QUEtiapine FUMARATE 25 MG TAB PO SCH ×3 (09:00→17:11)
--- NOTE | 2020-12-08 09:00 | NUR ---
DUE MORNING M EDS GIVEN ORDERED. TOLERATED PO MEDS WELL
[2020-12-08] MEDS: ENOXAPARIN 30 MG/0.3 ML SYR SUBQ SCH (09:27)
[2020-12-08] MEDS: FUROSEMIDE 40 MG/4 ML VIAL IVP SCH ×2 (09:27→17:11)
[2020-12-08] MEDS: VANCOMYCIN HCL 1.25 GM in DEXTROSE 5% 250 ML IV SCH ×2 (09:27→22:39)
[2020-12-08] MEDS: PANTOPRAZOLE 40 MG INJ VIAL IVP SCH (09:27)
--- NOTE | 2020-12-08 11:10 | NUR ---
PT RESTING IN BED. SON AT BEDSIDE. NO APPARENT DISTRESS
--- NOTE | 2020-12-08 12:00 | NUR ---
WITH C/O BACK PAIN 11/24. DILAUDID GIVEN ORDERED
[2020-12-08] MEDS: HYDROmorphone 1 MG/ML AMP IVP PRN ×2 (12:10→19:42)
[2020-12-08] MEDS: GAUZE TP SCH (12:55)
--- NOTE | 2020-12-08 13:35 | NUR ---
WOUND CARE DONE. DRESSING CHANGED IN ABD SURGICAL WOUND AND RFA SKIN TEAR
--- NOTE | 2020-12-08 15:00 | NUR ---
FAMILY AT BEDSIDE. NO C/O PAIN, NO SOB ON 4L OXYMIZER
--- NOTE | 2020-12-08 17:00 | NUR ---
DR NEAL AND DR TENORIO AT BEDSIDE. ORDERED INCENTIVE SPIROMETRY. INCENTIVE SPIROMETRY DONE, AVERAGE INSPIRATORY VOLUME 1000ML
--- NOTE | 2020-12-08 18:18 | NUR ---
PT ASLEEP IN BED AT THIS TIME. NO APPARENT DISTRESS, NO SOB
--- NOTE | 2020-12-08 19:20 | NUR ---
PT WAS SEEN FOR DYSPHAGIA. PT WAS ABLE TO SAFELY SWALLOW PUREE DIET WITH THIN LIQUID. MILD DIFFICULTY WITH MASTICATION SKILLS FOR MS DIET. RECOMMENDATION PUREE DIET WITH THIN LIQUID
--- NOTE | 2020-12-08 19:30 | NUR ---
RECIEVED REPORT FROM RN DAYSHIFT NURSE AT BEDSIDE FOR CONTINUITY OF CARE, PT IN STABLE CONDITION.
--- NOTE | 2020-12-08 19:42 | NUR ---
PT IN BED AOX 3-4 E IS ON 4 LITERS OXYMIZER AND HAS A RIJ IN PLACE RUNNING N/S TO KVO. PT ALSO FINNISHING TPN. HE A DALE DRAIN IN PLACE WITN NO DRAINAGE AND A ERAZO CATHETER IN PLACE DRAINING STRAW YELLOW URINE. DRESSING ON RODERICK DRY AND INTACT. C/O SEVERE PAIN IN BACK 11/24, HE WAS GIVEN IVP DILAUDID.
[2020-12-08] MEDS: MULTIVITAMIN-12 10 ML in DEXTROSE 50% 600 ML, AMINO ACIDS 8.5% 500 ML, FAT EMULSION 20%... IV SCH ×4 (20:00)
--- NOTE | 2020-12-08 21:00 | NUR ---
PT GIVEN ORDERED MEDS APRESSOLINE HELD DUE TO SBP LOW 100'S.
[2020-12-08] MEDS: ATORVASTATIN 20 MG TAB PO SCH (22:48)
[2020-12-09] VITALS: BP 102/58
--- NOTE | 2020-12-09 | NUR ---
ORDERD IVPB MEDS GIVEN .
[2020-12-09] MEDS: HYDRAGUARD CREAM TP SCH ×3 (01:00→23:41)
[2020-12-09] MEDS: HYDROmorphone 1 MG/ML AMP IVP PRN (01:17)
[2020-12-09] MEDS: PIPERACILLIN/TAZOBACTAM 4.5 GM in DEXTROSE 5% 100 ML IV SCH ×5 (01:29→23:41)
--- NOTE | 2020-12-09 01:30 | NUR ---
JASPERID GIVEN IV PUSH FOR SEVERE BACK PAIN. ALL REQUESTED NEEDS ATTENDED BY STAFF.
[2020-12-09 04:00] VITALS: BP 104/57
[2020-12-09] MEDS: hydrALAZINE 25 MG TAB PO SCH ×4 (05:00→20:11)
[2020-12-09] MEDS: MORPHINE SULFATE 2 MG/ML SYR IVP PRN ×2 (05:42→17:10)
[2020-12-09 05:58] LABS: BASOPHILS # (AUTO) 0.1 K/uL (0.00-0.22); BASOPHILS % (AUTO) 0.3 % (0.0-2.0); EOSINOPHILS # (AUTO) 0.2 K/uL (0-0.4); HEMATOCRIT 33.6 % (36-52); HEMOGLOBIN 11.3 g/dL (12.0-18.0); LYMPHOCYTES # (AUTO) 0.4 K/uL (2.0-11.5); LYMPHOCYTES % (AUTO) 2.4 % (20.5-51.1); MEAN CORPUSCULAR HEMOGLOBIN 32 pg (27-31); MEAN CORPUSCULAR HGB CONC 34 g/dL (33-37); MEAN CORPUSCULAR VOLUME 94.2 fL (80-94); MONOCYTES # (AUTO) 0.5 K/uL (0.8-1.0); MONOCYTES % (AUTO) 2.7 % (1.7-9.3); NEUTROPHILS # (AUTO) 17.1 K/uL (1.8-7.7); NEUTROPHILS % (AUTO) 93.6 % (42.2-75.2); PLATELET COUNT (AUTO) 501 K/uL (140-450); RED BLOOD CELL COUNT(AUTO) 3.57 MIL/uL (4.20-6.10); RED CELL DISTRIBUTION WIDTH 14.3 % (11.6-13.7); WHITE BLOOD COUNT (AUTO) 18.2 K/uL (4.8-10.8)
--- NOTE | 2020-12-09 06:00 | NUR ---
ALL SCHEDULED AND ORDERED IV ABT GIVEN , PT ALSO GIVEN MORPHINE IVP FOR MILD BACK PAIN . V/S STABLE.
[2020-12-09 06:02] LABS: ANION GAP 6.1 (8-16); CARBON DIOXIDE 34.1 mmol/L (21-32); CHLORIDE 99 mmol/L (98-107); GLUCOSE 92 mg/dL (74-106); POTASSIUM 4.2 mmol/L (3.5-5.1); SODIUM SERUM 135 mmol/L (136-145); UREA NITROGEN, BLOOD 26 mg/dL (7-18)
[2020-12-09 06:08] LABS: PHOSPHORUS 4.5 mg/dL (2.5-4.9)
--- NOTE | 2020-12-09 07:05 | NUR ---
received report from night manager for continue of care, patient laying on bed, no sign of distress noted. safety measures on place, calls light within reach
[2020-12-09 08:00] VITALS: BP 106/54
[2020-12-09] MEDS: FUROSEMIDE 40 MG/4 ML VIAL IVP SCH (09:33)
[2020-12-09] MEDS: SERTRALINE 50 MG TAB PO SCH ×2 (09:33→20:06)
[2020-12-09] MEDS: buPROPion 100 MG TAB PO SCH (09:34)
[2020-12-09] MEDS: QUEtiapine FUMARATE 25 MG TAB PO SCH ×3 (09:34→17:23)
[2020-12-09] MEDS: GABAPENTIN 300 MG CAP PO SCH ×3 (09:35→17:23)
[2020-12-09] MEDS: AMIODARONE 200 MG TAB PO SCH ×2 (09:35→20:06)
[2020-12-09] MEDS: VANCOMYCIN 1,000 MG in DEXTROSE 5% 250 ML IV SCH ×2 (09:37→20:05)
[2020-12-09] MEDS: ENOXAPARIN 30 MG/0.3 ML SYR SUBQ SCH (09:38)
[2020-12-09] MEDS ORDERED: CRUSHER, PILL MC ONE (09:50)
[2020-12-09] MEDS: PANTOPRAZOLE 40 MG INJ VIAL IVP SCH (09:54)
--- NOTE | 2020-12-09 10:03 | NUR ---
patient sitting on his bed, with no complains, patient alert, morning medication got administrated, patient tolerate medication well, patient on Oxymizer 4L, DALE MINIMAL DRAINAGE. BLOOD PRESSURE RIGHT BEFORE ADMINISTRATION MEDICATION 110/53 HEART RATE 65. SAFETY MEASURES ON PLACE, CALLS LIGHT WITHIN REACH. WILL CONTINUE TO MONITOR
--- NOTE | 2020-12-09 11:43 | NUR ---
PATIENT LAYING ON BED, NO COMPLAINS, HE IS ON 4L OXYMIZER, NO DISTRESS NOTED,, VISITOR AT BED SIDE. SAFETY MEASURES ON PLACE, CALLS LIGHT WITHIN REACH .
[2020-12-09 12:00] VITALS: BP 105/59
[2020-12-09] MEDS: GAUZE TP SCH (13:00)
--- NOTE | 2020-12-09 13:12 | NUR ---
PT RELAXED ON BED, NO COMPLAINS, NOON MEDICALIZATION ADMINISTRATED, PT TOLERATE MEDS WELL. HYDRALAZINE PILL GOT HOLD AND NOT GIVING DUE TO LOW BLOOD PRESSURE, BLOOD PRESSURE 97/60 HEART RATE 63. PATIENT ATE APPLE SAUCE AND TOLERATED IT WELL, SAFETY MEASURE ON PLACE, CALLS LIGHT WITHIN REACH. WILL CONTINUE MONITORING
--- NOTE | 2020-12-09 14:50 | NUR ---
PT SLEEPING ON HIS BED, BREATHING EVEN UNLABORED, NO SIGN OF DISTRESS WAS NOTED. TALKED TO DR EDD TENORIO ABOUT PATIENT DIET, HE SAID THATS IT IS OKAY TO GIVE PUREE DIET WITH THIN LIQUIDS.
--- NOTE | 2020-12-09 15:24 | NUR ---
12/09/20 RD FOLLOW UP COMPLETED PLEASE REFER TO NUTRITION ASSESSMENT UNDER CARE ACTIVITY FOR ESTIMATED NUTRITIONAL NEEDS. 1.CONT PUREE TOLERATED 2.RECOMMEND ENSURE BID FOR ADDITIONAL KCAL/PROTEIN 3.RD TO FOLLOW-UP 3-5 DAYS, MODERATE RISK JAN KINCAID, RD
[2020-12-09 16:00] VITALS: BP 110/64
--- NOTE | 2020-12-09 16:37 | NUR ---
PATIENT LAYING ON BED, DENIES PAIN, NO SIGN OF DISTRESS NOTED, BREATH EVEN NOT LABORED, FAMILY MEMBER NEXT TO BED SIDE. SAFETY MEASURES ON PLACE, CALLS LIGHT WITHIN REACH
--- NOTE | 2020-12-09 17:18 | NUR ---
PT COMPLAIN ABOUT PAIN, GOT MEDICATED PRN ORDER
[2020-12-09] MEDS: FUROSEMIDE 40 MG TAB PO SCH (17:25)
--- NOTE | 2020-12-09 19:20 | NUR ---
ENDORSED TO FISHERIES TECHNICAL OFFICER NURSE FOR CONTINUITY OF CARE. PATIENT STABLE. ALL SAFETY MEASURES IN PLACE.
--- NOTE | 2020-12-09 19:21 | NUR ---
RECEIVED REPORT FROM DAY SHIFT RN; PT AAOX3, FOLLOWING COMMANDS. GENERALIZED WEAKNESS NOTED. SR ON MONITOR, PALPABLE PULSES, NO EDEMA NOTED. CLEAR UPPER LOBES, DIMINSHED @ BASES. PT ON OXIMIZER @ 4L. NON PRODUCTIVE COUGH NOTED. ABD SOFT NON DISTENDED TOLERATING PO INTAKE. PT INCONTINENT HAVING WATERY BOWEL MOVEMENTS, RECTAL TUBE IN PLACE. ERAZO CATH IN PLACE, DRAINING YELLOW URINE. R IJ CENTRAL LINE IN PLACE, PATENT, INTACT. SKIN NON INTACT WITH MID ABD INCISION WITH RODERICK. HOB> 30 DEGREES. CALL LIGHT WITHIN REACH.
[2020-12-09] MEDS ORDERED: VANCOMYCIN 1,000 MG VIAL ONE (19:56)
[2020-12-09 20:00] VITALS: BP 90/52
[2020-12-09] MEDS: ATORVASTATIN 20 MG TAB PO SCH (20:06)
--- NOTE | 2020-12-09 20:30 | NUR ---
MEDS GIVEN; PT EDUCATED ON INCENTIVE SPIROMETER, NEEDS REINFORCEMENT. WILL CONTINUE TO OBSERVE.
--- NOTE | 2020-12-09 23:40 | NUR ---
PT C/O 11/24 BACK PAIN. PRN MORPHINE GIVEN WILL CONTINUE TO OBSERVE
[2020-12-09] MEDS: MORPHINE SULFATE 4 MG/ML SYR IV PRN (23:53)
[2020-12-10] VITALS: BP 108/66
--- NOTE | 2020-12-10 04:30 | NUR ---
AM CARE DONE; PT TURNED AND REPOSITIONED. DENIES PAIN
[2020-12-10] MEDS: PIPERACILLIN/TAZOBACTAM 4.5 GM in DEXTROSE 5% 100 ML IV SCH ×3 (05:07→18:11)
[2020-12-10] MEDS: hydrALAZINE 25 MG TAB PO SCH ×3 (05:27→20:55)
[2020-12-10 06:00] VITALS: BP 106/78
[2020-12-10 06:28] LABS: BASOPHILS % (AUTO) 0.1 % (0.0-2.0); EOSINOPHILS # (AUTO) 0.1 K/uL (0-0.4); EOSINOPHILS % (AUTO) 0.8 % (0.0-4.0); HEMATOCRIT 31.3 % (36-52); HEMOGLOBIN 10.5 g/dL (12.0-18.0); LYMPHOCYTES # (AUTO) 0.5 K/uL (2.0-11.5); LYMPHOCYTES % (AUTO) 3.2 % (20.5-51.1); MEAN CORPUSCULAR HEMOGLOBIN 32 pg (27-31); MEAN CORPUSCULAR HGB CONC 34 g/dL (33-37); MEAN CORPUSCULAR VOLUME 94.1 fL (80-94); MONOCYTES # (AUTO) 0.6 K/uL (0.8-1.0); MONOCYTES % (AUTO) 3.8 % (1.7-9.3); NEUTROPHILS # (AUTO) 15.5 K/uL (1.8-7.7); NEUTROPHILS % (AUTO) 92.1 % (42.2-75.2); PLATELET COUNT (AUTO) 582 K/uL (140-450); RED BLOOD CELL COUNT(AUTO) 3.33 MIL/uL (4.20-6.10); RED CELL DISTRIBUTION WIDTH 14.5 % (11.6-13.7); WHITE BLOOD COUNT (AUTO) 16.8 K/uL (4.8-10.8)
[2020-12-10 06:37] LABS: CARBON DIOXIDE 30.7 mmol/L (21-32); CHLORIDE 98 mmol/L (98-107); CREATININE 1.1 mg/dL (0.6-1.3); GLUCOSE 81 mg/dL (74-106); POTASSIUM 3.7 mmol/L (3.5-5.1); SODIUM SERUM 134 mmol/L (136-145); UREA NITROGEN, BLOOD 25 mg/dL (7-18)
[2020-12-10 06:41] LABS: PHOSPHORUS 3.9 mg/dL (2.5-4.9)
--- NOTE | 2020-12-10 07:30 | NUR ---
RECEIVED REPORT FROM DAY SHIFT NURSE. AOX4, WITH EPISODES OF DISORIENTATION, ABLE TO MAKE NEEDS KNOWN, NONAMBULATORY, ON BED REST. NO SOB ON 4L OXYMIZER. WITH RIJ CENTRAL TRIPLE LUMEN INTACT. ON PUREE DIET. DALE DRAIN INTACT, SCANT OUTPUT. S/P PERFORATED BOWEL REPAIR 11/30, RODERICK, DRESSING CLEAN AND INTACT. ERAZO AND RECTAL TUBE INTACT, DRAINING WELL. SAFETY PRECAUTIONS IN PLACE. CALL LIGHT WITHIN REACH. WILL CONTINUE TO MONITOR
--- NOTE | 2020-12-10 07:41 | NUR ---
REPORT GIVEN TO DAY SHIFT FOR CONTINUITY OF CARE
[2020-12-10] MEDS: HYDROmorphone 1 MG/ML AMP IVP PRN (08:30)
[2020-12-10] MEDS: VANCOMYCIN 1,000 MG in DEXTROSE 5% 250 ML IV SCH ×2 (08:52→21:00)
[2020-12-10] MEDS: QUEtiapine FUMARATE 25 MG TAB PO SCH ×3 (08:53→17:47)
[2020-12-10] MEDS: SERTRALINE 50 MG TAB PO SCH ×2 (08:53→20:55)
[2020-12-10] MEDS: GABAPENTIN 300 MG CAP PO SCH ×3 (08:53→17:47)
[2020-12-10] MEDS: AMIODARONE 200 MG TAB PO SCH ×2 (08:53→20:55)
[2020-12-10] MEDS: PANTOPRAZOLE 40 MG INJ VIAL IVP SCH (08:53)
[2020-12-10] MEDS: FUROSEMIDE 40 MG TAB PO SCH ×2 (08:53→17:47)
[2020-12-10] MEDS: buPROPion 100 MG TAB PO SCH (08:53)
[2020-12-10] MEDS: ENOXAPARIN 30 MG/0.3 ML SYR SUBQ SCH (09:00)
--- NOTE | 2020-12-10 09:00 | NUR ---
DUE MEDS GIVEN. TOLERATED PO MEDS WELL. WITH C/O DEEP ACHING BACK PAIN 11/24, DILAUDID GIVEN ORDERED
[2020-12-10] MEDS ORDERED: AMIO200T10 PO (10:19)
--- NOTE | 2020-12-10 11:43 | NUR ---
PT AWAKE, FAMILY AT BEDSIDE, NO C/O PAIN, NO SOB
[2020-12-10 12:00] VITALS: BP 105/61
[2020-12-10] MEDS: GAUZE TP SCH (12:48)
[2020-12-10] MEDS: HYDRAGUARD CREAM TP SCH (12:48)
--- NOTE | 2020-12-10 13:15 | NUR ---
PT RESTING IN BED. FAMILY AT BEDSIDE, NO COMPLAINTS AT THIS TIME
--- NOTE | 2020-12-10 15:15 | NUR ---
COVID TANYA SPECIMEN OBTAINED AND SENT TO LAB
[2020-12-10 16:00] VITALS: BP 105/78
--- NOTE | 2020-12-10 18:12 | NUR ---
PT ASLEEP IN BED, NO APPARENT DISTRESS, FLACC 0, NO SOB ON 2L O2
--- NOTE | 2020-12-10 19:15 | NUR ---
RECEIVED PATIENT FROM AM SHIFT NURSE FOR CONTINUITY OF CARE. ALERT AND ABLE TO MAKE NEEDS KNOWN. RESPIRATIONS EVEN, UNLABORED. CONTINUES ON O2 2L VIA OXIMIZER. RT AT BEDSIDE. S1/S2 AUSCULTATED. TELE MONITORING. NO C/O PAIN. SKIN WARM, DRY. RIGHT IJ PATENT/INTACT. DRESSING CLEAN/DRY. ABDOMEN SOFT, NONTENDER, NONDISTENDED. BOWEL SOUNDS ACTIVE x4 QUADRANTS. DALE DRAIN WITH MINIMAL DRAINAGE NOTED. RECTAL TUBE IN PLACE, DARK BROWN LIQUID STOOL DRAINING TO GRAVITY. ERAZO CATHETER PATENT, YELLOW URINE WITH SEDIMENT DRAINING TO GRAVITY. SAFETY PRECAUTIONS IN PLACE. PLAN OF CARE DISCUSSED. CALL LIGHT IN REACH AT ALL TIMES.
[2020-12-10 20:00] VITALS: BP 135/61
[2020-12-10] MEDS: ATORVASTATIN 20 MG TAB PO SCH (20:55)
--- NOTE | 2020-12-10 21:45 | NUR ---
PATIENT IS RESTING COMFORTABLY IN BED. NO S/S RESPIRATORY DISTRESS. NO C/O PAIN. PATIENT IS CLEAN/DRY. CALL LIGHT IN REACH.
--- NOTE | 2020-12-10 23:55 | NUR ---
PATIENT IS ASLEEP. NO S/S RESPIRATORY DISTRESS. PATIENT IS CLEAN/DRY. CALL LIGHT IN REACH AT ALL TIMES.
[2020-12-11] VITALS: BP 127/67
[2020-12-11] MEDS: HYDRAGUARD CREAM TP SCH ×2 (00:13→13:00)
--- NOTE | 2020-12-11 01:08 | NUR ---
MADE ROUNDS. PATIENT IS ASLEEP. NO S/S RESPIRATORY DISTRESS. PATIENT IS CLEAN/DRY. CALL LIGHT IN REACH.
--- NOTE | 2020-12-11 03:05 | NUR ---
ALL NEEDS ANTICIPATED AND MET. NO S/S RESPIRATORY DISTRESS. PATIENT CLEAN/DRY. CALL LIGHT IN REACH.
[2020-12-11] MEDS: MORPHINE SULFATE 2 MG/ML SYR IVP PRN ×2 (03:26→13:45)
[2020-12-11 04:00] VITALS: BP 129/67
[2020-12-11] MEDS: hydrALAZINE 25 MG TAB PO SCH ×3 (05:16→20:49)
--- NOTE | 2020-12-11 05:26 | NUR ---
PATIENT IS ASLEEP. NO S/S RESPIRATORY DISTRESS. NO S/S ACUTE DISTRESS. PATIENT IS CLEAN/DRY. CALL LIGHT IN REACH.
[2020-12-11 05:59] LABS: BASOPHILS # (AUTO) 0.1 K/uL (0.00-0.22); BASOPHILS % (AUTO) 0.4 % (0.0-2.0); EOSINOPHILS # (AUTO) 0.1 K/uL (0-0.4); EOSINOPHILS % (AUTO) 0.5 % (0.0-4.0); HEMATOCRIT 31.7 % (36-52); HEMOGLOBIN 10.7 g/dL (12.0-18.0); LYMPHOCYTES # (AUTO) 0.5 K/uL (2.0-11.5); LYMPHOCYTES % (AUTO) 3.2 % (20.5-51.1); MEAN CORPUSCULAR HEMOGLOBIN 32 pg (27-31); MEAN CORPUSCULAR HGB CONC 34 g/dL (33-37); MEAN CORPUSCULAR VOLUME 93.7 fL (80-94); MONOCYTES # (AUTO) 0.7 K/uL (0.8-1.0); MONOCYTES % (AUTO) 4.8 % (1.7-9.3); NEUTROPHILS # (AUTO) 13.9 K/uL (1.8-7.7); NEUTROPHILS % (AUTO) 91.1 % (42.2-75.2); PLATELET COUNT (AUTO) 709 K/uL (140-450); RED BLOOD CELL COUNT(AUTO) 3.38 MIL/uL (4.20-6.10); RED CELL DISTRIBUTION WIDTH 14.4 % (11.6-13.7); WHITE BLOOD COUNT (AUTO) 15.2 K/uL (4.8-10.8)
[2020-12-11 06:25] LABS: ANION GAP 7.5 (8-16); CARBON DIOXIDE 32.8 mmol/L (21-32); CHLORIDE 99 mmol/L (98-107); GLUCOSE 96 mg/dL (74-106); POTASSIUM 3.3 mmol/L (3.5-5.1); SODIUM SERUM 136 mmol/L (136-145); UREA NITROGEN, BLOOD 18 mg/dL (7-18)
[2020-12-11] MEDS: HYDROmorphone 1 MG/ML AMP IVP PRN ×2 (07:13→22:33)
--- NOTE | 2020-12-11 07:30 | NUR ---
RECEIVED REPORT FROM DAY SHIFT NURSE. AOX4, ABLE TO MAKE NEEDS KNOWN, AMBULATORY WITH ASSIST. NO SOB ON 2L OXYMIZER. WITH RIJ CENTRAL TRIPLE LUMEN INTACT. ON PUREE DIET. DALE DRAIN INTACT, SCANT OUTPUT. S/P PERFORATED BOWEL REPAIR 11/30, RODERICK, DRESSING CLEAN AND INTACT. ERAZO AND RECTAL TUBE INTACT, DRAINING WELL. SAFETY PRECAUTIONS IN PLACE. CALL LIGHT WITHIN REACH. WILL CONTINUE TO MONITOR
[2020-12-11 08:00] VITALS: BP 136/64
[2020-12-11] MEDS: GABAPENTIN 300 MG CAP PO SCH ×3 (08:19→17:35)
[2020-12-11] MEDS: FUROSEMIDE 40 MG TAB PO SCH ×2 (08:19→17:34)
[2020-12-11] MEDS: AMIODARONE 200 MG TAB PO SCH ×2 (08:19→20:50)
[2020-12-11] MEDS: PANTOPRAZOLE 40 MG INJ VIAL IVP SCH (08:19)
[2020-12-11] MEDS: QUEtiapine FUMARATE 25 MG TAB PO SCH ×3 (08:20→17:34)
[2020-12-11] MEDS: SERTRALINE 50 MG TAB PO SCH ×2 (08:21→20:49)
[2020-12-11] MEDS: buPROPion 100 MG TAB PO SCH (08:21)
[2020-12-11] MEDS: ENOXAPARIN 30 MG/0.3 ML SYR SUBQ SCH (08:41)
--- NOTE | 2020-12-11 08:50 | NUR ---
due meds given. tolerated po meds well
--- NOTE | 2020-12-11 11:00 | NUR ---
PT RESTING IN BED. FAMILY AT BEDSIDE, NO COMPLAINTS AT THIS TIME
--- NOTE | 2020-12-11 11:20 | NUR ---
REPORT GIVEN TO ROBERT RENE FOR CONTINUITY OF CARE
--- NOTE | 2020-12-11 11:25 | NUR ---
RECEIVE REPORT FROM KEVIN RENE FOR CONTINUITY OF CARE. PATIENT AWAKE AND ALERT. PATIENT ON 2 L VIA OXYMIZER. NO ACUTE DISTRESS NOTED. ALL SAFETY MEASURES IN PLACE. CALL LIGHT WITHIN REACH. WILL CONTINUE TO MONITOR.
[2020-12-11] MEDS: GAUZE TP SCH (13:00)
--- NOTE | 2020-12-11 13:51 | NUR ---
HYDRALAZINE HELD DUE TO PATIENT BP 106/63 HR 74. AWARE.
[2020-12-11] MEDS ORDERED: POTASSIUM CHLORIDE 10 MEQ TABER PO SCH (14:00)
--- NOTE | 2020-12-11 15:23 | NUR ---
PATIENT SLEEPING. BREATHING EVEN AND UNLABORED. ALL SAFETY MEASURES IN PLACE. CALL LIGHT WITHIN REACH. WILL CONTINUE TO MONITOR.
--- NOTE | 2020-12-11 17:24 | NUR ---
PATIENT SLEEPING. BREATHING EVEN AND UNLABORED. ALL SAFETY MEASURES IN PLACE. CALL LIGHT WITHIN REACH. WILL CONTINUE TO MONITOR.
--- NOTE | 2020-12-11 17:35 | NUR ---
PATIENT AWAKE AND ALERT. BREATHING EVEN AND UNLABORED. SCHEDULED MEDICATION GIVEN. BP 106/59 HR 75. ALL SAFETY MEASURES IN PLACE. CALL LIGHT WITHIN REACH.
--- NOTE | 2020-12-11 18:31 | NUR ---
DR. TENORIO AT BEDSIDE REMOVED DALE DRAIN.
--- NOTE | 2020-12-11 19:20 | NUR ---
ENDORSED TO SOLUTION PROFESSIONAL NURSE FOR CONTINUITY OF CARE. PATIENT STABLE. ALL SAFETY MEASURES IN PLACE. CALL LIGHT WITHIN REACH.
[2020-12-11 20:00] VITALS: BP 103/61
[2020-12-11] MEDS: ATORVASTATIN 20 MG TAB PO SCH (20:50)
--- NOTE | 2020-12-11 23:55 | NUR ---
INSERTION LEFT FOREARM 22 GAUGE SALINE LOCK. BED TO SLIGHT 10 DEGREE REVERSE [place]. DRESSING REMOVAL TO CENTRAL LINE SITE. TWO SUTURES CUT FROM RIGHT AND LEFT SIDE OF CATHETER. DISCONTINUATION OF RIGHT INTER JUGULAR CENTRAL LINE. INTACT CATHETER TIP ON A TRIPLE LUMEN LINE IS APPRECIATED. HEMOSTASIS IS ACHIEVED. BED TO 30 DEGREES ELEVATION. YARON SAHU RN
--- NOTE | 2020-12-12 00:36 | NUR ---
PATIENT UP INDEPENDENTLY AFTER DISCUSSION SITTING IN CHAIR. HE WAS SAYING THAT HE WAS APPROVED 6 DAYS IN [facility] IN REHAB. HE WAS NOT ABLE TO GET THERE FOR WHAT HE BLAMES ON THIS FACILITY. SAYS HE HAS BEEN DOING THERAPY IN HIS BED WHILE HE IS WAITING TO GO BACK HOME. SAYS HIS CAREGIVERS AT HOME WILL TAKE CARE OF HIM. HE WANTS HIS ERAZO CATHETER REMOVED. HE ALSO WANTS HIS RECTAL TUBE REMOVED. YARON SAHU RN
--- NOTE | 2020-12-12 01:21 | NUR ---
PATIENT BITING IV SITE. INFILTRATED LEFT FOREARM SITE REPLACED WITH 22 GAUGE SITE. YARON SAHU RN Addendum: 12/12/20 at 0124 by Agency Sunil RENE RN INCORRECT PATIENT, DISREGARD ENTRY
[2020-12-12] MEDS: HYDRAGUARD CREAM TP SCH ×2 (01:24→18:02)
--- NOTE | 2020-12-12 02:13 | NUR ---
PATIENT INSTRUCTION TO PROVIDE SPUTUM SPECIMEN. SAYS HE DOES NOT HAVE ANY SPUTUM AT THIS TIME. WILL MONITOR FOR EXPECTORATED SPUTUM CUP LEFT AT BEDSIDE FOR COLLECTION. YARON SAHU RN
[2020-12-12 04:00] VITALS: BP 103/61
--- NOTE | 2020-12-12 04:37 | NUR ---
PATIENT REQUEST TO GO TO HOME AT THIS TIME REQUESTING TO TALK WITH PUNCH FINISHER REGARDING CHANGING HIS PLAN FROM [facility] TO HOME. YARON SAHU RN
--- NOTE | 2020-12-12 04:44 | NUR ---
DRESSING CHANGE TO ABDOMEN DRAIN SITE AND MIDLINE WITH [place] DRESSING. CLEANSE WITH BETADINE. YARON SAHU RN
--- NOTE | 2020-12-12 05:00 | NUR ---
PATIENT BACK TO SITTING IN CHAIR. TRANSFERRED INDEPENDENTLY. YARON SAHU RN
--- NOTE | 2020-12-12 05:08 | NUR ---
PATIENT SPUTUM SPECIMEN SENT TO LABORATORY FOR ANALYSIS. YARON SAHU RN
[2020-12-12 05:39] LABS: HEMATOCRIT 34.6 % (36-52); HEMOGLOBIN 11.7 g/dL (12.0-18.0); MEAN CORPUSCULAR HEMOGLOBIN 32 pg (27-31); MEAN CORPUSCULAR HGB CONC 34 g/dL (33-37); MEAN CORPUSCULAR VOLUME 94.4 fL (80-94); PLATELET COUNT (AUTO) 703 K/uL (140-450); RED BLOOD CELL COUNT(AUTO) 3.66 MIL/uL (4.20-6.10); RED CELL DISTRIBUTION WIDTH 14.6 % (11.6-13.7); WHITE BLOOD COUNT (AUTO) 18.4 K/uL (4.8-10.8)
[2020-12-12] MEDS: hydrALAZINE 25 MG TAB PO SCH ×3 (05:39→20:23)
[2020-12-12 05:49] LABS: ANION GAP 10.6 (8-16); CARBON DIOXIDE 30.2 mmol/L (21-32); CHLORIDE 100 mmol/L (98-107); CREATININE 1.1 mg/dL (0.6-1.3); GLUCOSE 103 mg/dL (74-106); POTASSIUM 3.8 mmol/L (3.5-5.1); SODIUM SERUM 137 mmol/L (136-145); UREA NITROGEN, BLOOD 19 mg/dL (7-18)
[2020-12-12] MEDS: HYDROmorphone 1 MG/ML AMP IVP PRN ×2 (05:50→18:02)
--- NOTE | 2020-12-12 06:13 | NUR ---
LINEN CHANGE AND BEDBATH ASSIST WITH MIXER DRIVER. YARON SAHU RN
--- NOTE | 2020-12-12 07:48 | NUR ---
HANDOFF WITH ANJU KATHLEEN. YARON SAHU RN
[2020-12-12 09:06] LABS: EOSINOPHILS % (MANUAL) 1 % (0-4); LYMPHOCYTES % (MANUAL) 7 % (20-46); MONOCYTES % (MANUAL) 7 % (5-12)
--- NOTE | 2020-12-12 09:12 | NUR ---
Call place to [facility] for approval transfer to [facility] , no answer
[2020-12-12] MEDS: POTASSIUM CHLORIDE 20% 40 MEQ/15 ML UDC GT PRN (10:03)
[2020-12-12] MEDS: ENOXAPARIN 30 MG/0.3 ML SYR SUBQ SCH (10:03)
[2020-12-12] MEDS: LEVOFLOXACIN 750 MG/D5W PREMIX 150 ML IV SCH (10:03)
[2020-12-12] MEDS: AMIODARONE 200 MG TAB PO SCH ×2 (10:06→20:27)
[2020-12-12] MEDS: QUEtiapine FUMARATE 25 MG TAB PO SCH ×3 (10:06→18:20)
[2020-12-12] MEDS: FUROSEMIDE 40 MG TAB PO SCH ×2 (10:06→18:00)
[2020-12-12] MEDS: SERTRALINE 50 MG TAB PO SCH ×2 (10:07→20:27)
[2020-12-12] MEDS: buPROPion 100 MG TAB PO SCH (10:07)
[2020-12-12] MEDS: PANTOPRAZOLE 40 MG INJ VIAL IVP SCH (10:07)
[2020-12-12] MEDS: GABAPENTIN 300 MG CAP PO SCH ×3 (10:08→18:19)
[2020-12-12 12:00] VITALS: BP 105/44
--- NOTE | 2020-12-12 13:48 | NUR ---
CALL PLACE TO [facility] FOR [facility] AUTHORIZATION NO RESPONSE
--- NOTE | 2020-12-12 14:06 | NUR ---
TALKED TO MARIA FROM [facility] SHE SAID [facility] IS NOT APPROVED AND THEY ARE LOOKING FOR A SNIF AND WILL CALL ME ONCE SET UP Addendum: 12/12/20 at 1407 by Eloise Baxter RN [facility] NUMBER [phone]
--- NOTE | 2020-12-12 14:12 | NUR ---
P.T. NOTES Pt UNAVAILABLE DUE TO HOSPITAL PROCEDURE.
--- NOTE | 2020-12-12 14:42 | NUR ---
CALL PLACE AGAIN TO [facility] TO INFORM THEM THAT PT WANTS TO GO TO [facility] AND FAMILY WANTS TO TALK TO CRM ARCHITECT OF [facility]
--- NOTE | 2020-12-12 14:51 | NUR ---
TALKED TO NURIA , I GAVE HER THE NUMBER OF [facility] [phone], I MADE AWARE NURIA THAT [facility] IS NOT AUTHORIZING [facility] TRANSFER , PER NURIA SHE WILL CALL MARIA
--- NOTE | 2020-12-12 15:31 | NUR ---
FAXED TO [facility] [phone] PT NOTES AND CALL PLACE TO [facility] TO GIVE PHONE NUMBER OF DR DE LA ROSA, I ALSO INFORMED DR DE LA ROSA THAT [facility] WILL CALL HIM
[2020-12-12] MEDS: GAUZE TP SCH (18:01)
[2020-12-12] MEDS: BACLOFEN 10 MG TAB PO PRN (18:01)
[2020-12-12] MEDS: metroNIDAZOLE 500 MG/NS PREMIX 100 ML IV SCH ×2 (18:18→20:27)
--- NOTE | 2020-12-12 19:30 | NUR ---
RECEIVED BEDSIDE REPORT FROM DAY RN. PT IS AAOX4. RESPIRATIONS ARE EQUAL AND UNLABORED ON ROOM AIR. PT S/P BOWEL RESECTION LARGE MIDLINE ABD INCISION CLEAN AND DRY. IV ON LAC 20G TKO. ON BEDREST. PT WITH MX LIQUID BM TODAY PER DAY RN. PT IS ABLE TO MAKE NEEDS KNOWN.POC REVIEWED WITH PT. CALL LIGHT IS WITHIN REACH, WILL CONTINUE TO MONITOR.
[2020-12-12 20:00] VITALS: BP 98/53
[2020-12-12] MEDS: ATORVASTATIN 20 MG TAB PO SCH (20:27)
--- NOTE | 2020-12-12 20:27 | NUR ---
VSS. HELD HYDRALAZINE FOR BP 98/53 HR 75. ADELINE MEDICATIONS GIVEN PER ORDERS. EDUCATION GIVEN. ALL NEEDS MET, CALL LIGHT IS WITHIN REACH
--- NOTE | 2020-12-12 22:00 | NUR ---
ROUNDS MADE, PT APPEARS TO BE ASLEEP. CHEST RISE AND FALL NOTED. CALL LIGHT IS WITHIN REACH. WILL CONTINUE TO MONITOR.
--- NOTE | 2020-12-13 | NUR ---
ASSISTED PATIENT TO BEDSIDE COMMODE TOLERATED WELL. PT C/C ABD PAIN 10/10 WILL MEDICATE PER ORDERS. CALL LIGHT IS WITHIN REACH.
[2020-12-13] MEDS: HYDROmorphone 1 MG/ML AMP IVP PRN ×2 (00:06→08:43)
[2020-12-13] MEDS: HYDRAGUARD CREAM TP SCH ×2 (00:41→13:03)
--- NOTE | 2020-12-13 02:06 | NUR ---
rounds made. pt appears to be asleep, chest rise and fall noted. call light is within reach. will continue to monitor.
[2020-12-13 04:00] VITALS: BP 99/60
[2020-12-13] MEDS: hydrALAZINE 25 MG TAB PO SCH ×2 (05:00→13:00)
[2020-12-13] MEDS: metroNIDAZOLE 500 MG/NS PREMIX 100 ML IV SCH ×3 (05:08→21:28)
--- NOTE | 2020-12-13 05:08 | NUR ---
HELD HYDRALAZINE FOR BP 99/60 78BPM. IV FLAGYL GIVEN PER ORDERS. ALL NEEDS MET. WILL CONTINUE TO MONITOR.
--- NOTE | 2020-12-13 07:05 | NUR ---
GAVE BEDSIDE REPORT TO DAY RN. PT ENDORSED IN STABLE CONDITION.
[2020-12-13 08:00] VITALS: BP 127/73
[2020-12-13] MEDS: PANTOPRAZOLE 40 MG INJ VIAL IVP SCH (08:30)
[2020-12-13] MEDS: QUEtiapine FUMARATE 25 MG TAB PO SCH ×3 (08:33→17:47)
[2020-12-13] MEDS: SERTRALINE 50 MG TAB PO SCH ×2 (08:33→21:25)
[2020-12-13] MEDS: buPROPion 100 MG TAB PO SCH (08:34)
[2020-12-13] MEDS: AMIODARONE 200 MG TAB PO SCH ×2 (08:41→21:27)
[2020-12-13] MEDS: FUROSEMIDE 40 MG TAB PO SCH ×2 (08:43→17:47)
[2020-12-13] MEDS: LEVOFLOXACIN 750 MG/D5W PREMIX 150 ML IV SCH (08:48)
[2020-12-13] MEDS: GABAPENTIN 300 MG CAP PO SCH ×3 (09:52→17:46)
[2020-12-13] MEDS: ENOXAPARIN 30 MG/0.3 ML SYR SUBQ SCH (09:54)
--- NOTE | 2020-12-13 09:59 | NUR ---
CALL PLACE TO [facility] ,TO FOLLOW UP REGARDING THE TRANSFER TO [facility] TALKED TO BOO, PER BOO [facility] AND [facility]ORING MACHINE HELPER WILL CALL ME BACK
--- NOTE | 2020-12-13 10:06 | NUR ---
MARIA FROM [facility] CALLED ME BACK, SHE SAID NO UPDATE YET, I AGAIN GAVE THE PHONE NUMBER OF DR DE LA ROSA ,
[2020-12-13 10:34] LABS: BASOPHILS # (AUTO) 0.1 K/uL (0.00-0.22); BASOPHILS % (AUTO) 0.3 % (0.0-2.0); EOSINOPHILS # (AUTO) 0.1 K/uL (0-0.4); EOSINOPHILS % (AUTO) 0.5 % (0.0-4.0); HEMATOCRIT 30.8 % (36-52); HEMOGLOBIN 10.5 g/dL (12.0-18.0); LYMPHOCYTES # (AUTO) 0.5 K/uL (2.0-11.5); MEAN CORPUSCULAR HEMOGLOBIN 32 pg (27-31); MEAN CORPUSCULAR HGB CONC 34 g/dL (33-37); MEAN CORPUSCULAR VOLUME 93.9 fL (80-94); MONOCYTES # (AUTO) 0.9 K/uL (0.8-1.0); MONOCYTES % (AUTO) 5.6 % (1.7-9.3); NEUTROPHILS # (AUTO) 14.7 K/uL (1.8-7.7); PLATELET COUNT (AUTO) 728 K/uL (140-450); RED BLOOD CELL COUNT(AUTO) 3.28 MIL/uL (4.20-6.10); RED CELL DISTRIBUTION WIDTH 14.7 % (11.6-13.7); WHITE BLOOD COUNT (AUTO) 16.2 K/uL (4.8-10.8)
[2020-12-13 10:50] LABS: ANION GAP 10.1 (8-16); CARBON DIOXIDE 28.4 mmol/L (21-32); CHLORIDE 101 mmol/L (98-107); GLUCOSE 107 mg/dL (74-106); POTASSIUM 3.5 mmol/L (3.5-5.1); SODIUM SERUM 136 mmol/L (136-145); UREA NITROGEN, BLOOD 14 mg/dL (7-18)
[2020-12-13 10:56] LABS: MAGNESIUM 1.9 mg/dL (1.8-2.4); PHOSPHORUS 4.2 mg/dL (2.5-4.9)
[2020-12-13 11:10] LABS: NEUTROPHILS % (AUTO) 90.6 % (42.2-75.2)
[2020-12-13 11:21] LABS: PROTHROMBIN TIME 11.1 secs (10.8-13.4)
--- NOTE | 2020-12-13 12:36 | NUR ---
[facility] for patient called asking about procedure patient will have done today. I called Dr Cruz to ask him to explain the procedure to patient's family. Dr Cruz asked for their phone number. I texted him the phone number.
[2020-12-13] MEDS: GAUZE TP SCH (13:04)
[2020-12-13] MEDS: HYDROcodone/APAP 5/325 MG 1 TAB TAB PO PRN (13:10)
[2020-12-13] MEDS: DEXT 5% /NACL 0.9% 1,000 ML IV SCH ×2 (13:39→23:20)
[2020-12-13 16:00] VITALS: BP 132/66
--- NOTE | 2020-12-13 17:11 | NUR ---
1711: Called PICC nurse to request midline insertion; left message [phone]: Called PICC nurse again for a follow up
[2020-12-13 20:00] VITALS: BP 119/68
[2020-12-13] MEDS: ATORVASTATIN 20 MG TAB PO SCH (21:25)
[2020-12-14] MEDS: BACLOFEN 10 MG TAB PO PRN (00:47)
[2020-12-14] MEDS: HYDROcodone/APAP 5/325 MG 1 TAB TAB PO PRN (00:47)
[2020-12-14] MEDS: HYDRAGUARD CREAM TP SCH ×2 (01:06→13:55)
[2020-12-14 04:00] VITALS: BP 106/55
[2020-12-14] MEDS: metroNIDAZOLE 500 MG/NS PREMIX 100 ML IV SCH ×3 (04:41→21:27)
[2020-12-14 06:09] LABS: BASOPHILS # (AUTO) 0.1 K/uL (0.00-0.22); BASOPHILS % (AUTO) 0.6 % (0.0-2.0); EOSINOPHILS # (AUTO) 0.1 K/uL (0-0.4); EOSINOPHILS % (AUTO) 0.4 % (0.0-4.0); HEMATOCRIT 29.6 % (36-52); HEMOGLOBIN 10.1 g/dL (12.0-18.0); LYMPHOCYTES # (AUTO) 0.7 K/uL (2.0-11.5); LYMPHOCYTES % (AUTO) 4.7 % (20.5-51.1); MEAN CORPUSCULAR HEMOGLOBIN 32 pg (27-31); MEAN CORPUSCULAR HGB CONC 34 g/dL (33-37); MEAN CORPUSCULAR VOLUME 94.2 fL (80-94); MONOCYTES # (AUTO) 0.9 K/uL (0.8-1.0); MONOCYTES % (AUTO) 5.7 % (1.7-9.3); NEUTROPHILS # (AUTO) 13.9 K/uL (1.8-7.7); NEUTROPHILS % (AUTO) 88.6 % (42.2-75.2); PLATELET COUNT (AUTO) 716 K/uL (140-450); RED BLOOD CELL COUNT(AUTO) 3.14 MIL/uL (4.20-6.10); RED CELL DISTRIBUTION WIDTH 14.6 % (11.6-13.7); WHITE BLOOD COUNT (AUTO) 15.7 K/uL (4.8-10.8)
[2020-12-14 07:07] LABS: CARBON DIOXIDE 27.4 mmol/L (21-32); CHLORIDE 103 mmol/L (98-107); CREATININE 1.2 mg/dL (0.6-1.3); GLUCOSE 91 mg/dL (74-106); POTASSIUM 3.4 mmol/L (3.5-5.1); SODIUM SERUM 137 mmol/L (136-145); UREA NITROGEN, BLOOD 14 mg/dL (7-18)
--- NOTE | 2020-12-14 07:17 | NUR ---
REPORT GIVEN TO JACKELYN RENE FOR CONTINUITY OF CARE. PT SITTING UP AAOX4. NO APPARENT S/S OF ACUTE DISTRESS. BREATHING EVEN AND UNLABORED. BED IN LOW/LOCKED POSITION. CALL LIGHT WITHIN REACH. ALL NEEDS MET AT THIS TIME.
--- NOTE | 2020-12-14 08:15 | NUR ---
Pt awake and alert on RA, no signs of resp. distress noted at this time, SPO2 93%, clr bilat.
[2020-12-14] MEDS: ENOXAPARIN 30 MG/0.3 ML SYR SUBQ SCH (08:25)
[2020-12-14] MEDS: HYDROmorphone 1 MG/ML AMP IVP PRN ×2 (08:30→21:21)
[2020-12-14] MEDS: POTASSIUM CHLORIDE 20% 40 MEQ/15 ML UDC GT PRN (08:30)
[2020-12-14] MEDS: AMIODARONE 200 MG TAB PO SCH ×2 (08:31→21:17)
[2020-12-14] MEDS: QUEtiapine FUMARATE 25 MG TAB PO SCH ×3 (08:31→17:53)
[2020-12-14] MEDS: FUROSEMIDE 40 MG TAB PO SCH ×2 (08:31→17:53)
[2020-12-14] MEDS: buPROPion 100 MG TAB PO SCH (08:32)
[2020-12-14] MEDS: GABAPENTIN 300 MG CAP PO SCH ×3 (08:32→17:53)
[2020-12-14] MEDS: SERTRALINE 50 MG TAB PO SCH ×2 (08:32→21:18)
[2020-12-14] MEDS: PANTOPRAZOLE 40 MG INJ VIAL IVP SCH (08:33)
[2020-12-14] MEDS: LEVOFLOXACIN 750 MG/D5W PREMIX 150 ML IV SCH (08:38)
[2020-12-14] MEDS ORDERED: CRUSHER, PILL MC ONE (08:39)
[2020-12-14] MEDS: DEXT 5% /NACL 0.9% 1,000 ML IV SCH ×2 (08:45→19:20)
--- NOTE | 2020-12-14 10:49 | NUR ---
WOUND CARE RE-EVALUATION NOTE: WOUND ASSESSMENT DONE PT. IS ALERT ORIENTED, ABLE TO FOLLOW DIRECTIONS TO TURN AND MOVE HIMSELF UP. PT. VERBALIZES NEEDS POC WILL CONTINUE DRESSING CHANGE DAILY.PENDING IMAGE GUIDE DRAIN PER SURGEON'S PROGRESS NOTE. -MID ABDOMINAL SURGICAL WOUND WITH [address] ,SECURED, NO S/S OF WOUND DEHISCENCE. WOUND MOIST,SMALL AMOUNT SEROUS DRAINAGE, NO ODOR, TEE WOUND SKIN IRRITATION AND INTACT FROM TAPE, HYDROGUARD APPLIED -RLQ ABDOMEN SURGICAL WOUND S/P DALE DRAIN CLOSE WOUND, AREA DRY AND CLEAN -RIGHT FOREARM SKIN TEAR, VERSATEL DRESSING IN PLACE, DRY AND CLEAN -DRY ABDOMEN SKIN IMPROVEMENT NOTICE. PENIS AND SCROTAL EDEMA IMPROVED SKIN THIN AND INTACT.
[2020-12-14 12:00] VITALS: BP 113/63
[2020-12-14] MEDS ORDERED: MIDAZOLAM 2 MG/2 ML VIAL ONE (13:00)
[2020-12-14] MEDS ORDERED: fentaNYL citrate 0.05 MG/ML VIAL ONE (13:00)
[2020-12-14] MEDS: GAUZE TP SCH (13:55)
--- NOTE | 2020-12-14 14:53 | NUR ---
12/14/20 RD FOLLOW UP COMPLETED PLEASE REFER TO NUTRITION ASSESSMENT UNDER CARE ACTIVITY FOR ESTIMATED NUTRITIONAL NEEDS. 1. CURRENTLY NPO 2. WHEN MEDICALLY CLEARED CONT PUREE TOLERATED 2. RECOMMEND ENSURE BID AND PROSPER BID TO PROMOTE WOUND HEALING 3. RECOMMEND SWALLOW EVALUATION TO UPGRADE DIET IF APPROPRIATE 4. RD TO FOLLOW-UP 3-5 DAYS, MODERATE RISK JAN KINCAID RD
--- NOTE | 2020-12-14 19:35 | NUR ---
ENDORSED CARE TO KUSHAL RENE FOR CONTINUITY OF CARE.
--- NOTE | 2020-12-14 19:35 | NUR ---
RECEIVED REPORT FROM RN DAYSHIFT NURSE AT BEDSIDE FOR CONTINUITY OF CARE, PT IN STABLE CONDITION.
[2020-12-14 20:00] VITALS: BP 126/64
--- NOTE | 2020-12-14 20:00 | NUR ---
PT ON BEDSIDE COMMODE, PT HAD SMALL UNFORMED BM X1; HE WAS ASSISTED PER REQUEST AND HELPED BACK TO BED. PT V/S FOLLOWS: T 97.0 P 75 R 20 B/P 126/64 02 93% ON ROOM AIR. D5NS RUNNING AT 100MLS/HR ORDERED RUNNING VIA LEFT UPPER ARM MIDLINE. PORTS FLUSHED PATENT. PT NEPHROSTOMY TUBE ON LEFT SIDE INTACT OMENTAL PATCH IN PLACE. ALL ORDERED PRECAUTIONS IN PLACE.
[2020-12-14] MEDS: ATORVASTATIN 20 MG TAB PO SCH (21:17)
--- NOTE | 2020-12-14 21:30 | NUR ---
PT GIVEN ORDERED AMIODARONE , LIPITOR AND ZOLOFT ORDERED. EDUCATION REGARDING MEDICATION AND ITS PURPOSES PROVIDED AT BEDSIDE, PT VERBALIZED UNDERSTANDING. ALSO HUNG WAS ORDERED FLAGYL, AGAIN EDUCATION REGARDING MEDICATION AND ITS PURPOSE PROVIDED AT BEDSIDE, PT VERBALIZED UNDERSTANDING. PT C/ SEVERE PAIN IN BACK AND WAS GIVEN IVP DILAUDID FOR SEVERE 8/10 PAIN. WILL MONITOR FOR EFFECT. ALL ORDERED PRECAUTIONS IN PLACE AND ALL REQUESTED NEEDS ATTENDED BY STAFF.
--- NOTE | 2020-12-15 00:45 | NUR ---
ROUNDS DONE, PT IN BED ASLEEP, FLUIDS RUNNING ORDERED, ALL ORDERED PRECAUTIONS IN PLACE.
[2020-12-15] MEDS: HYDRAGUARD CREAM TP SCH ×2 (01:00→13:00)
[2020-12-15 04:00] VITALS: BP 104/57
--- NOTE | 2020-12-15 05:00 | NUR ---
PT ASSISTED TO BEDSIDE COMMODE AND BACK HE HAD A SMALL LOOSE BOWEL MOVEMENT. FLAGYL HUNG AND RUNNING AT 100MLS. PT DENIES ANY PAIN AT THIS TIME. V/S FOLLOWS: T 97.0 P 64 R 20 B/P 104/57 02 94% ON ROOM AIR. ALL ORDERED PRECAUTIONS IN PLACE.
[2020-12-15 06:07] LABS: CARBON DIOXIDE 27.6 mmol/L (21-32); CHLORIDE 105 mmol/L (98-107); CREATININE 1.2 mg/dL (0.6-1.3); GLUCOSE 94 mg/dL (74-106); POTASSIUM 3.6 mmol/L (3.5-5.1); SODIUM SERUM 141 mmol/L (136-145); UREA NITROGEN, BLOOD 14 mg/dL (7-18)
[2020-12-15 06:26] LABS: BASOPHILS # (AUTO) 0.1 K/uL (0.00-0.22); BASOPHILS % (AUTO) 0.7 % (0.0-2.0); EOSINOPHILS # (AUTO) 0.2 K/uL (0-0.4); HEMATOCRIT 32.5 % (36-52); LYMPHOCYTES # (AUTO) 0.7 K/uL (2.0-11.5); LYMPHOCYTES % (AUTO) 4.2 % (20.5-51.1); MEAN CORPUSCULAR HEMOGLOBIN 32 pg (27-31); MEAN CORPUSCULAR HGB CONC 34 g/dL (33-37); MEAN CORPUSCULAR VOLUME 94.7 fL (80-94); MONOCYTES # (AUTO) 0.9 K/uL (0.8-1.0); NEUTROPHILS # (AUTO) 15.4 K/uL (1.8-7.7); NEUTROPHILS % (AUTO) 89.1 % (42.2-75.2); PLATELET COUNT (AUTO) 705 K/uL (140-450); RED BLOOD CELL COUNT(AUTO) 3.43 MIL/uL (4.20-6.10); RED CELL DISTRIBUTION WIDTH 15.2 % (11.6-13.7); WHITE BLOOD COUNT (AUTO) 17.3 K/uL (4.8-10.8)
[2020-12-15] MEDS: metroNIDAZOLE 500 MG/NS PREMIX 100 ML IV SCH ×3 (07:10→20:49)
[2020-12-15] MEDS: DEXT 5% /NACL 0.9% 1,000 ML IV SCH ×2 (07:11→15:20)
--- NOTE | 2020-12-15 07:42 | NUR ---
RECEIVED PT AWAKE, ON ROOM AIR, IV ON LEFT UPPER ARM PICCLINE, FLUSHED WITH NORMAL SALINE, WITH GOOD BLOOD RETURN, DRESSING CHANGED DONE 12/14,ON D5 NS AT 100 ML /HR, SKIN WARM TO TOUCH RESP. EVEN AND UNLABORED, NO VOMITTING NOTED, ABDOMEN SOFT NON DISTENDED.
--- NOTE | 2020-12-15 07:53 | NUR ---
PATIENT VERY UPSET THAT HE IS NPO REFUSING VITAL SIGN, INFORM DR TENORIO WAITING FOR HIS RESPONSE
--- NOTE | 2020-12-15 07:59 | NUR ---
TALKED TO DR TENORIO MADE AWARE OF PT CONDITION, PER DR TENORIO PT STILL NEED TO BE NPO, DR. TENORIO NEED TO MAKE SURE THE NEPHROSTOMY TUBE IS NOT LEAKING
--- NOTE | 2020-12-15 08:51 | NUR ---
ATTEMPTED TO SEE PATIENT FOR PHYSICAL THERAPY TREATMENT HOWEVER PATIENT REFUSED AT THIS TIME DUE TO BEING UPSET ABOUT NPO STATUS. PATIENT REPORTS "I'LL GET UP AFTER I HAVE MY JELLO". RN NOTIFIED AND AWARE HOWEVER PATIENT REMAINS NPO PER RN. EDUCATED PATIENT IMPORTANCE OF MOBILITY HOWEVER PATIENT CONTINUES REFUSAL. WILL FOLLOW UP IF APPROPRIATE.
[2020-12-15] MEDS: QUEtiapine FUMARATE 25 MG TAB PO SCH ×3 (09:00→17:00)
[2020-12-15] MEDS: AMIODARONE 200 MG TAB PO SCH ×3 (09:00→21:24)
[2020-12-15] MEDS: buPROPion 100 MG TAB PO SCH (09:00)
[2020-12-15] MEDS: SERTRALINE 50 MG TAB PO SCH ×2 (09:00→20:25)
[2020-12-15] MEDS: PANTOPRAZOLE 40 MG INJ VIAL IVP SCH (09:00)
[2020-12-15] MEDS: FUROSEMIDE 40 MG TAB PO SCH ×2 (09:00→17:00)
[2020-12-15] MEDS: GABAPENTIN 300 MG CAP PO SCH ×3 (09:00→17:00)
[2020-12-15] MEDS: ENOXAPARIN 30 MG/0.3 ML SYR SUBQ SCH (09:00)
[2020-12-15] MEDS: LEVOFLOXACIN 750 MG/D5W PREMIX 150 ML IV SCH (09:15)
--- NOTE | 2020-12-15 10:00 | NUR ---
TALKED TO NURIA MADE AWARE PT REFUSING CARE.
--- NOTE | 2020-12-15 10:41 | NUR ---
SON AT BEDSIDE, TALKING TO PAtIENT
[2020-12-15 10:53] VITALS: BP 108/60
[2020-12-15] MEDS: MORPHINE SULFATE 4 MG/ML SYR IV PRN (11:22)
[2020-12-15] MEDS: ONDANSETRON 4 MG/2 ML VIAL IV PRN (11:30)
--- NOTE | 2020-12-15 11:40 | NUR ---
DR NEAL AT BEDSIDE
--- NOTE | 2020-12-15 11:55 | NUR ---
PATIENT EYES CLOSE PILLOW N HIS BACK, DALE DRAIN ON LEFT NEPHROSTOMY DRAINING TO THICK BROWN DRAINAGE, MEDICATED FOR NAUSEA,
[2020-12-15] MEDS: GAUZE TP SCH (13:00)
--- NOTE | 2020-12-15 14:26 | NUR ---
PT USING HIS PHONE CALLING HIS BIRGIT, PATIENT ALERT ORIENTED, NO C/O PAIN AT THIS TIME DRESSING CHANGED DONE ON ABDOMINAL AREA, NOTED 15 RODERICK INTACT
[2020-12-15 18:13] VITALS: BP 104/56
--- NOTE | 2020-12-15 18:50 | NUR ---
DR LOPEZ AT BEDSIDE
--- NOTE | 2020-12-15 19:20 | NUR ---
RECD. PATIENT RESTING IN BED, AWAKE, A/OX4. RESPIRATION EVEN AND UNLABORED. IV OF D5NS AT 100 ML/HR INFUSING LEFT UPPER ARM MIDLINE. SURGICAL INCISION IN THE ABDOMEN COVERED WITH DRESSING DRY AND INTACT, DALE DRAINING BROWNISH FLUID. USES URINAL AND BEDSIDE COMMODE WITH ASSISTANCE. TEACHING ON THE IMPORTANCE OF USING INCENTIVE SPIROMETER GIVEN. VERBALIZED HE KNOWS HOW TO USE IT. REMINDED TO USE EVERY HOUR WHILE AWAKE TO PREVENT PNEUMONIA. VERBALIZED UNDERSTANDING. DENIES PAIN 0/10.
[2020-12-15 20:00] VITALS: BP 95/55
[2020-12-15] MEDS: ATORVASTATIN 20 MG TAB PO SCH (20:25)
--- NOTE | 2020-12-15 21:30 | NUR ---
DR. TENORIO CALLED, INQUIRED ABOUT DALE OUTPUT, INSTRUCTED TO MONITOR CLOSELY OUTPUT.
--- NOTE | 2020-12-15 22:00 | NUR ---
Patient's Plan of Care was discussed and reviewed with DRIVERS' CASH CLERK: PAT GREEN
[2020-12-16] MEDS: HYDROcodone/APAP 5/325 MG 1 TAB TAB PO PRN (00:02)
--- NOTE | 2020-12-16 00:02 | NUR ---
WANTS MORPHINE FOR ABDOMINAL PAIN BUT BP IS IN THE LOW SIDE, MEDICATED WITH NORCO PER MD ORDER.
[2020-12-16] MEDS: HYDRAGUARD CREAM TP SCH ×2 (01:00→12:22)
--- NOTE | 2020-12-16 01:00 | NUR ---
CHECKED ON PATIENT ENQUIRED HE NEEDS PAIN MEDICATION, VERBALIZED HE IS OK AND IS NOT FEELING PAIN AT THIS TIME, 0/10.
[2020-12-16] MEDS: DEXT 5% /NACL 0.9% 1,000 ML IV SCH ×4 (01:20→22:56)
--- NOTE | 2020-12-16 03:00 | NUR ---
SLEEPING COMFORTABLY IN BED.
[2020-12-16 04:00] VITALS: BP 96/52
[2020-12-16] MEDS: metroNIDAZOLE 500 MG/NS PREMIX 100 ML IV SCH ×3 (04:37→22:45)
[2020-12-16 05:46] LABS: HEMATOCRIT 30.5 % (36-52); HEMOGLOBIN 10.1 g/dL (12.0-18.0); MEAN CORPUSCULAR HEMOGLOBIN 32 pg (27-31); MEAN CORPUSCULAR HGB CONC 33 g/dL (33-37); MEAN CORPUSCULAR VOLUME 95.3 fL (80-94); PLATELET COUNT (AUTO) 605 K/uL (140-450); RED CELL DISTRIBUTION WIDTH 14.9 % (11.6-13.7); WHITE BLOOD COUNT (AUTO) 16.8 K/uL (4.8-10.8)
[2020-12-16] MEDS: HYDROcodone/APAP 7.5/325 MG 1 TAB PO PRN (06:14)
[2020-12-16 06:19] LABS: ANION GAP 9.6 (8-16); CARBON DIOXIDE 28.6 mmol/L (21-32); CHLORIDE 107 mmol/L (98-107); GLUCOSE 118 mg/dL (74-106); POTASSIUM 3.2 mmol/L (3.5-5.1); SODIUM SERUM 142 mmol/L (136-145); UREA NITROGEN, BLOOD 11 mg/dL (7-18)
--- NOTE | 2020-12-16 06:30 | NUR ---
DR. TENORIO MESSAGE TO KEEP PATIENT NPO UNIT XR UPPER GI WITH GASTROGRAFIN IS COMPLETED. IF THERE IS NO LEAK, PATIENT CAN BE STARTED ON FULL LIQUID DIET.
[2020-12-16 06:32] LABS: LYMPHOCYTES % (MANUAL) 3 % (20-46); MONOCYTES % (MANUAL) 5 % (5-12)
[2020-12-16 06:36] LABS: EOSINOPHILS % (MANUAL) 1 % (0-4)
--- NOTE | 2020-12-16 06:45 | NUR ---
ABLE TO EMPTY ONLY 45 ML DRAINAGE FROM DALE, IT HAS A THICK MUCOID CONSISTENCY. DR. TENORIO AWARE.
--- NOTE | 2020-12-16 07:29 | NUR ---
CONDITION REMAIN STABLE. ENDORSED TO AM SHIFT NURSE FOR CONTINUITY OF CARE.
--- NOTE | 2020-12-16 07:30 | NUR ---
REPORT RECEIVED FROM CARE INFORMATION ASSOCIATE NURSE. PT RESTING IN BED, EYES CLOSED BREATHING IS SYMMETRICAL.
--- NOTE | 2020-12-16 07:51 | NUR ---
RADIOLOGY CALLED STATES FLUOROSCOPY MACHINE IS NOT WORKING . MD TENORIO AND MD DE LA ROSA AWARE
[2020-12-16] MEDS: AMIODARONE 200 MG TAB PO SCH ×2 (08:36→22:46)
[2020-12-16] MEDS: buPROPion 100 MG TAB PO SCH (08:41)
[2020-12-16] MEDS: SERTRALINE 50 MG TAB PO SCH ×2 (08:41→22:45)
[2020-12-16] MEDS: GABAPENTIN 300 MG CAP PO SCH ×3 (08:42→17:00)
[2020-12-16] MEDS: PANTOPRAZOLE 40 MG INJ VIAL IVP SCH (08:42)
[2020-12-16] MEDS: LEVOFLOXACIN 750 MG/D5W PREMIX 150 ML IV SCH (08:43)
[2020-12-16] MEDS: ENOXAPARIN 30 MG/0.3 ML SYR SUBQ SCH (08:46)
[2020-12-16] MEDS: FUROSEMIDE 40 MG TAB PO SCH ×2 (09:12→17:00)
[2020-12-16] MEDS: QUEtiapine FUMARATE 25 MG TAB PO SCH ×3 (09:12→17:00)
--- NOTE | 2020-12-16 09:37 | NUR ---
MEDICATIONS GIVEN PER MD ORDER. PT EDUCATED VERBALIZED UNDERSTANDING . NO QUESTIONS AT THIS TIME. ALL SAFETY MEASURES ARE IN PLACE.
[2020-12-16 12:00] VITALS: BP 99/54
[2020-12-16] MEDS: MORPHINE SULFATE 4 MG/ML SYR IV PRN ×2 (12:20→23:47)
[2020-12-16] MEDS: GAUZE TP SCH (12:21)
--- NOTE | 2020-12-16 12:24 | NUR ---
ATTEMPTED TO SEE PATIENT FOR PHYSICAL THERAPY TREATMENT HOWEVER PATIENT REFUSED AT THIS TIME DUE TO CONTINUOUS WATERY DIARRHEA ALL MORNING. PATIENT REQUESTS FOR THERAPY TOMORROW; RN AWARE. WILL FOLLOW UP IF APPROPRIATE TOMORROW.
--- NOTE | 2020-12-16 12:32 | NUR ---
MEDICATIONS GIVEN PER MD ORDER. PT EDUCTAED AND VERBALIZED UNDERSTANDING PT COMPLAINED OF PAIN . PRN MEDICATION GIVEN
--- NOTE | 2020-12-16 12:33 | NUR ---
WOUND CARE PERFORMED. PT TOLERATED WELL
--- NOTE | 2020-12-16 14:15 | NUR ---
MD WARREN AT BEDSIDE
[2020-12-16] MEDS ORDERED: POTASSIUM CHLORIDE 10 MEQ TABER PO SCH (14:40)
--- NOTE | 2020-12-16 14:48 | NUR ---
K REPLACED PER MD ORDER. PT EDUCATED VERBALIZED UNDERSTANDING . PT TOLERATED WELL
--- NOTE | 2020-12-16 15:53 | NUR ---
PT IN BEDSIDE COMMODE CONTINUES TO HAVE LOOSE STOOLS , X4 . NO N.V
--- NOTE | 2020-12-16 16:28 | NUR ---
FAMILY AT BEDSIDE. PT RESTING IN BED. ALL SAFETY MEASURES IN PLACE
--- NOTE | 2020-12-16 16:28 | NUR ---
PT HAD BROTH JELLO, AND PAL TOLERATED WELL. DENIES N/V
[2020-12-16] MEDS: POTASSIUM CHLORIDE 10 MEQ TABER PO SCH (18:54)
--- NOTE | 2020-12-16 18:54 | NUR ---
PT RESTING IN BED EATING DINNER PT TOLERATED WELL
--- NOTE | 2020-12-16 19:15 | NUR ---
PT ENDORSED TO CHIEF SCIENCE OFFICER NURSE FOR CONTINUITY OF CARE. PT IN STABLE CONDITION
[2020-12-16 20:00] VITALS: BP 110/61
[2020-12-16] MEDS: ATORVASTATIN 20 MG TAB PO SCH (22:45)
[2020-12-17] MEDS: HYDRAGUARD CREAM TP SCH ×2 (01:00→13:48)
--- NOTE | 2020-12-17 01:58 | NUR ---
PATIENT ALERT [id number] IN BED ON ROOM AIR SAT 95%. LUNGS DIMINISH TO LISTEN. HAS LEFT UPPER MIDLINE INFUSING D5NS 100 HOUR. ABDOMEN HAS A MIDLINE INCISION OPEN TO AIR. Healing well. and he has a pig tail to drain brownish purulent drain. patient c/o of back pain medicated with morpine 4 mg ivp. 7. temp 98.7 is using urinal.
[2020-12-17 04:00] VITALS: BP 109/60
[2020-12-17] MEDS: metroNIDAZOLE 500 MG/NS PREMIX 100 ML IV SCH ×2 (05:00→13:47)
--- NOTE | 2020-12-17 07:15 | NUR ---
RECEIVED REPORT FROM ESCAPE WHEEL TOOTH CUTTER RN. PATIENT IS RESTING IN BED. NO S/S OF DISTRESS. RESPIRATIONS ARE EVEN AND UNLABORED. ALL SAFETY PRECAUTIONS IN PLACE.
[2020-12-17 08:00] VITALS: BP 101/39
[2020-12-17] MEDS ORDERED: FLUCONAZOLE 100 MG TAB PO SCH (09:00)
[2020-12-17] MEDS: PANTOPRAZOLE 40 MG INJ VIAL IVP SCH (09:00)
[2020-12-17] MEDS: AMIODARONE 200 MG TAB PO SCH (09:00)
--- NOTE | 2020-12-17 10:00 | NUR ---
PATIENT'S FAMILY AT BEDSIDE. PATIENT IS AWAKE AND ALERT. NO S/S OF DISTRESS. ALL SAFETY PRECAUTIONS IN PLACE.
[2020-12-17] MEDS: HYDROcodone/APAP 7.5/325 MG 1 TAB PO PRN (10:33)
[2020-12-17] MEDS: GABAPENTIN 300 MG CAP PO SCH ×3 (10:34→17:54)
[2020-12-17] MEDS: FUROSEMIDE 40 MG TAB PO SCH ×2 (10:34→17:54)
[2020-12-17] MEDS: QUEtiapine FUMARATE 25 MG TAB PO SCH ×3 (10:34→17:54)
[2020-12-17] MEDS: SERTRALINE 50 MG TAB PO SCH (10:36)
[2020-12-17] MEDS: buPROPion 100 MG TAB PO SCH (10:36)
[2020-12-17] MEDS: ONDANSETRON 4 MG/2 ML VIAL IV PRN (10:37)
[2020-12-17] MEDS ORDERED: METR-435 PO (10:38)
[2020-12-17] MEDS ORDERED: FLUC100T1 PO (10:38)
[2020-12-17] MEDS ORDERED: AMIO200T10 PO (10:38)
[2020-12-17] MEDS ORDERED: LEVO750T51 PO (10:38)
[2020-12-17] MEDS: ENOXAPARIN 30 MG/0.3 ML SYR SUBQ SCH (10:39)
[2020-12-17] MEDS ORDERED: ACET-1182 PO (10:40)
[2020-12-17] MEDS: POTASSIUM CHLORIDE 10 MEQ TABER PO SCH (10:40)
--- NOTE | 2020-12-17 10:40 | NUR ---
ADMINISTERED ALL SCHEDULED MEDICATIONS. PATIENT VERBALIZED UNDERSTANDING. ALL SAFETY PRECAUTIONS IN PLACE. WILL CONTINUE TO MONITOR.
[2020-12-17] MEDS ORDERED: CRUSHER, PILL MC ONE (10:46)
[2020-12-17] MEDS ORDERED: XAR10 PO (10:56)
[2020-12-17] MEDS: LEVOFLOXACIN 750 MG/D5W PREMIX 150 ML IV SCH (11:09)
[2020-12-17] MEDS: DEXT 5% /NACL 0.9% 1,000 ML IV SCH ×2 (11:42→17:20)
[2020-12-17] MEDS: GAUZE TP SCH (13:00)
--- NOTE | 2020-12-17 15:07 | NUR ---
CHECKED ON PATIENT. PATIENT IS IN BED RESTING. ALL SAFETY PRECAUTIONS IN PLACE.
[2020-12-17 18:36] VITALS: BP 99/50
== END 2020-12-17 20:20 | DRG 853 ==
LOC: MED 03:24 → MIC 05:29 → MTU 12-08 04:05
PROC: 0DU907Z Supplement Duodenum with Autologous Tissue Substitute, Open Approach (ICD-10-PCS; 2020-11-28)
PROC: 0DU607Z Supplement Stomach with Autologous Tissue Substitute, Open Approach (ICD-10-PCS; 2020-11-28)
PROC: 0W9G0ZZ Drainage of Peritoneal Cavity, Open Approach (ICD-10-PCS; 2020-11-28)
PROC: 0DNU0ZZ Release Omentum, Open Approach (ICD-10-PCS; 2020-11-28)
PROC: 0DN80ZZ Release Small Intestine, Open Approach (ICD-10-PCS; 2020-11-28)
PROC: 5A0945A Assistance with Respiratory Ventilation, 24-96 Consecutive Hours, High Flow/Velocity Cannula (ICD-10-PCS; 2020-11-30)
PROC: 02H633Z Insertion of Infusion Device into Right Atrium, Percutaneous Approach (ICD-10-PCS; principal; 2020-12-01)
PROC: B548ZZA Ultrasonography of Superior Vena Cava, Guidance (ICD-10-PCS; 2020-12-01)
PROC: 3E0436Z Introduction of Nutritional Substance into Central Vein, Percutaneous Approach (ICD-10-PCS; 2020-12-02)
PROC: 5A0935A Assistance with Respiratory Ventilation, Less than 24 Consecutive Hours, High Flow/Velocity Cannula (ICD-10-PCS; 2020-12-03)
PROC: 5A0935A Assistance with Respiratory Ventilation, Less than 24 Consecutive Hours, High Flow/Velocity Cannula (ICD-10-PCS; 2020-12-04)
PROC: 0W9G30Z Drainage of Peritoneal Cavity with Drainage Device, Percutaneous Approach (ICD-10-PCS; 2020-12-14)
DX: A41.9 Sepsis, unspecified organism (principal); E43 Unspecified severe protein-calorie malnutrition; K25.5 Chronic or unspecified gastric ulcer with perforation; J96.01 Acute respiratory failure with hypoxia; K65.1 Peritoneal abscess; K65.9 Peritonitis, unspecified; K26.5 Chronic or unspecified duodenal ulcer with perforation; J18.9 Pneumonia, unspecified organism; I50.33 Acute on chronic diastolic (congestive) heart failure; Z68.1 Body mass index [BMI] 19.9 or less, adult; I47.1 Supraventricular tachycardia; N17.9 Acute kidney failure, unspecified; E87.70 Fluid overload, unspecified; E78.5 Hyperlipidemia, unspecified; F17.200 Nicotine dependence, unspecified, uncomplicated; F32.9 Major depressive disorder, single episode, unspecified; K21.9 Gastro-esophageal reflux disease without esophagitis; G62.9 Polyneuropathy, unspecified; K57.90 Diverticulosis of intestine, part unspecified, without perforation or abscess without bleeding; E86.0 Dehydration; M62.838 Other muscle spasm; I48.0 Paroxysmal atrial fibrillation; E66.9 Obesity, unspecified; I11.0 Hypertensive heart disease with heart failure; I35.0 Nonrheumatic aortic (valve) stenosis; K40.20 Bilateral inguinal hernia, without obstruction or gangrene, not specified as recurrent; I71.4 Abdominal aortic aneurysm, without rupture; E83.41 Hypermagnesemia; E87.5 Hyperkalemia; K76.0 Fatty (change of) liver, not elsewhere classified; Z20.822 Contact with and (suspected) exposure to COVID-19; K66.0 Peritoneal adhesions (postprocedural) (postinfection); N20.0 Calculus of kidney; Z87.442 Personal history of urinary calculi; Z79.899 Other long term (current) drug therapy
CPT/HCPCS: 36415; 70450; 71045; 74018; 75989; 80048; 80053; 80202; 80305; 81001; 82150; 82948; 83036; 83605; 83615; 83690; 83735; 83880; 84100; 84134; 84439; 84443; 84478; 84484; 85025; 85379; 85610; 85651; 85730; 86140; 86886; 86900; 86901; 87040; 87070; 87075; 87081; 87086; 87205; 92610; 92700; 93005; 94640; 96361; 96365; 96375; 96376; 97110; 97112; 97116; 97163-GP; 97530; 99291; A4330; A9153; C1729; C9113; J0282; J0330; J0360; J1100; J1160; J1170; J1630; J1650; J1815; J1940; J1956; J2001; J2060; J2250; J2270; J2405; J2543; J2704; J3010; J3370; J3480; J3490; J7030; J7060; J7120; J7612; J7614; Q0092; Q9967; U0003